=== PATIENT | male | born 1945 | race Caucasian/White ===

== ENCOUNTER 2017-11-08 00:01 | Inpatient (IN) | payer OTHER, MEDICARE ==
[2017-11-08] VITALS (31 sets, daily range): BP systolic 80–197; BP diastolic 52–110; PULSE 56–123; RESP 12–25; TEMP 97.9–100.2; O2SAT 80–100
[~2017-11-08] VITALS: Ht 175.3 cm; Wt 93.5 kg
[2017-11-08] MEDS ORDERED: METH10TA PO (00:18)
[2017-11-08] MEDS ORDERED: OXYC-395 PO (00:18)
[2017-11-08] MEDS ORDERED: METF500T PO (00:18)
[2017-11-08] MEDS ORDERED: ETOMIDATE 40 MG/20 ML VIAL ONE (00:29)
[2017-11-08] MEDS ORDERED: SUCCINYLCHOLINE CHLORIDE 200 MG/10 ML VIAL ONE (00:30)
[2017-11-08] MEDS ORDERED: PROPOFOL 500 MG/50 ML INJ 50 ML ONE ×2 (00:46→02:02)
[2017-11-08] MEDS ORDERED: SODIUM CHLOR 0.9% 1000 ML INJ 1,000 ML IV SCH (00:49)
[2017-11-08] MEDS ORDERED: SODIUM CHLORIDE 0.9% FLUSH 10 ML FLUSH IV FLUSH PRN ×2 (01:00→03:30)
[2017-11-08 01:03] LABS: PROTHROMBIN TIME - PATIENT 10.2 SEC (9.8-11.6)
--- NOTE | 2017-11-08 01:15 | PD ---
HPI Chief Complaint: Abdominal Pain Time Seen by Provider: 00:14 Travel History International Travel<30 days: No Contact w/Intl Traveler<30days: No Traveled to known affect area: No History of Present Illness HPI 72-year-old male arrives to the ER due to what he describes to be a generalized stated feeling lousy. He states he has been feeling this way for a week or so however over the past few hours it has become quite a bit worse. Additional complaints include paresthesias involving the hands and feet. He reports driving down here from [place] over the past couple days. He's had no chest pain or shortness of breath. He denies nausea vomiting fever and chills. He's had no fever however reports diaphoresis. He reports routine usage of 10 mg oxycodone 4 times daily for chronic headaches. He denies change in medication otherwise. He states he would like some been helpful with anxiety. PFSH Past Medical History Cardiovascular Problems: Yes Diabetes: Yes (Metformin) Patient Takes Glucophage: Yes Diminished Hearing: No Tetanus Vaccination: Unknown Influenza Vaccination: No Past Surgical History Abdominal Surgery: Yes (esophageal valve Sx, hemorrhoidal sx and anal fissure sx) Neurologic Surgery: Yes (C5-6 fusion) Tonsillectomy: Yes Other Surgery: Yes (Lshoulder sx times 2 and R shoulder sx times 1, varicose vein repair) Social History Alcohol Use: Yes (social) Tobacco Use: No Substance Use: No Allergies-Medications (Allergen,Severity, Reaction): Coded Allergies: No Known Drug Allergies (Verified Allergy, Unknown, 11/08/17) Reported Meds & Prescriptions Reported Meds & Active Scripts Active Reported Metformin (Metformin HCl) 500 Mg Tab 500 Mg PO BIDPC Methadone (Methadone HCl) 10 Mg Tab 10 Mg PO TID Oxycodone (Oxycodone HCl) 10 Mg Tab 10 Mg PO Q6H PRN Review of Systems Except as stated in HPI: all other systems reviewed are Neg General / Constitutional: No: Fever HENT: Positive: Headaches (chronic daily headaches) Physical Exam Narrative GENERAL: 72-year-old male well-nourished well-developed, BMI 31.1 SKIN: Intact. Trace diaphoresis. HEAD: Atraumatic. Normocephalic. EYES: Pupils equal and round. No scleral icterus. No injection or drainage. ENT: No nasal bleeding or discharge. Mucous membranes pink and moist. NECK: Trachea midline. No JVD. CARDIOVASCULAR: Regular rate. Rhythm regular. RESPIRATORY: Clear. No tachypnea. GASTROINTESTINAL: Abdomen soft, non-tender, nondistended. Hepatic and splenic margins not palpable. MUSCULOSKELETAL: Extremities without clubbing, cyanosis, or edema. No obvious deformities. NEUROLOGICAL: Awake and alert. No obvious cranial nerve deficits. Motor grossly within normal limits. Five out of 5 muscle strength in the arms and legs. Normal speech. PSYCHIATRIC: Appropriate mood and affect; insight and judgment normal. Data Data Last Documented VS Vital Signs Date Time Temp Pulse Resp B/P (MAP) Pulse Ox O2 Delivery O2 Flow Rate FiO2 11/08/17 00:19 56 20 187/81 (116) 98 Room Air 11/08/17 00:02 97.9 Orders Orders Etomidate Inj (Amidate Inj) (11/08/17 00:29) Succinylcholine Inj (Quelicin Inj) (11/08/17 00:30) Ct Pulmonary Angiogram (11/08/17 ) Ct Brain W/O Iv Contrast(Rout) (11/08/17 ) I-Stat Creatinine (11/08/17 00:35) I-Stat Profile (11/08/17 00:35) Act Partial Throm Time (Ptt) (11/08/17 00:35) Prothrombin Time / Inr (Pt) (11/08/17 00:35) Propofol 500 Mg/50 Ml Inj (Diprivan 500 (11/08/17 00:46) Electrocardiogram (11/08/17 00:49) Ammonia (11/08/17 00:49) Complete Blood Count With Diff (11/08/17 00:49) Comprehensive Metabolic Panel (11/08/17 00:49) Creatine Kinase (Cpk) (11/08/17 00:49) Troponin I (11/08/17 00:49) Thyroid Stimulating Hormone (11/08/17 00:49) Urinalysis - C+S If Indicated (11/08/17 00:49) Lactic Acid Sepsis Protocol (11/08/17 00:49) Arterial Blood Gas (Abg) (11/08/17 00:49) Blood Culture (11/08/17 00:49) Chest, Single Ap (11/08/17 00:49) Blood Glucose (11/08/17 00:49) Ecg Monitoring (11/08/17 00:49) Iv Access Insert/Monitor (11/08/17 00:49) Oximetry (11/08/17 00:49) Oxygen Administration (11/08/17 00:49) Urinary Catheter Insert/Apply (11/08/17 00:49) Sodium Chloride 0.9% Flush (Ns Flush) (11/08/17 01:00) Sodium Chlor 0.9% 1000 Ml Inj (Ns 1000 M (11/08/17 00:49) Ct Abd/Pel W Iv Contrast(Rout) (11/08/17 00:49) Admit Order (Ed Use Only) (11/08/17 ) Cost Estimating Engineer / Telemetry JUAN.Q8H (11/08/17 01:06) Vital Signs (Adult) Q4H (11/08/17 01:06) Diet Npo (11/08/17 Breakfast) Activity Bed Rest (11/08/17 01:06) Notify Dr: Other (11/08/17 01:06) Labs Laboratory Tests Test 11/08/17 00:30 11/08/17 01:10 Bedside Hemoglobin 16.3 G/DL Bedside Hematocrit 48.0 % Prothrombin Time 10.2 SEC Prothromb Time International Ratio 1.0 RATIO Activated Partial Thromboplast Time 23.9 SEC Bedside Sodium 138 MMOL/L Bedside Potassium 8.5 MMOL/L Bedside Chloride 109 MMOL/L Bedside Blood Urea Nitrogen 30 MG/DL Bedside Creatinine 1.0 MG/DL Bedside Glucose 174 MG/DL White Blood Count 28.5 TH/MM3 Red Blood Count 5.14 MIL/MM3 Hemoglobin 13.7 GM/DL Hematocrit 43.7 % Mean Corpuscular Volume 85.0 FL Mean Corpuscular Hemoglobin 26.7 PG Mean Corpuscular Hemoglobin Concent 31.4 % Red Cell Distribution Width 14.3 % Platelet Count 404 TH/MM3 Mean Platelet Volume 9.1 FL Neutrophils (%) (Auto) 63.8 % Lymphocytes (%) (Auto) 28.7 % Monocytes (%) (Auto) 5.4 % Eosinophils (%) (Auto) 1.6 % Basophils (%) (Auto) 0.5 % Neutrophils # (Auto) 18.2 TH/MM3 Lymphocytes # (Auto) 8.2 TH/MM3 Monocytes # (Auto) 1.5 TH/MM3 Eosinophils # (Auto) 0.5 TH/MM3 Basophils # (Auto) 0.2 TH/MM3 CBC Comment AUTO DIFF Ammonia 31 MCMOL/L MDM Medical Decision Making Medical Screen Exam Complete: Yes Emergency Medical Condition: Yes Medical Record Reviewed: Yes Differential Diagnosis PE, stroke, myocardial partial, electrolyte imbalance, metabolic disarray Narrative Course CBC & BMP Diagram 11/08/17 01:10 Total Protein 8.3 H, Albumin 3.8, Calcium Level 12.3 *H, Alkaline Phosphatase 131 H, Aspartate Amino Transf (AST/SGOT) 63 H, Alanine Aminotransferase (ALT/ SGPT) 52, Total Bilirubin 0.4 Lactic Acid 6.2 Tn < 0.02 TSH 5.140 The patient was hemodynamically normal and had normal mental status time of completion of the history of present illness and physical exam. Just a few minutes after leaving the room I was called to the bedside because the patient was unresponsive. The pupils dilated bilaterally. Rhythm on the monitor was wide complex very bizarre morphology tachycardic as pulses were lost. Nonrebreather applied. Chest compressions started immediately. Patient was intubated with a 8-0 tube without difficulty. The patient received epinephrine twice. He received calcium 1 g twice. Bicarbonate was given once. Amiodarone 150 mg given. After the intubation which was performed with etomidate and succinylcholine a wide-complex ventricular tachycardia presumably ventricular tachycardia was observed. Patient was defibrillated once. Chest compressions were maintained throughout. Upon return of circulation the patient maintained a pulse of about 90 and a blood pressure about 170/90. He began purposeful movements and required sedation with propofol and rocuronium. EKG reveals a ventricular tachycardia with a rate about 100 minute the QRS complex with a QRS of 1:15 is noted. No T-wave inversions or ST elevation CT abdomen and pelvis shows lung consolidation bilaterally CT chest shows some consolidation at the bases Head CT is negative Patient will be admitted for ongoing monitoring Etiology of loss of consciousness and cardiac arrest is unclear and potentially could be due to hyperkalemia As the point of care potassium was 8.5 and the comprehensive metabolic panel potassium was 6.5 after the patient had received bicarbonate insulin dextrose calcium. Critical Care Narrative Aggregate critical care time was 45 minutes. Time to perform other separately billable procedures was not included in the critical care time. My time did not include minutes spent treating any other patients simultaneously or on activities that did not directly contribute to the patient's treatment. The services I provided to this patient were to treat and/or prevent clinically significant deterioration that could result in: cardiopulmonary arrest, , disability I provided critical care services requiring my management, as noted below: Chart data review, documentation time, medication orders and management, vital sign assessments/reviewing monitor data, ordering and reviewing lab tests, ordering and interpreting/reviewing x-rays and diagnostic studies, care of the patient and discussion of the patient with the admitting physicians. Procedures Procedure Narrative After the risks and benefits were discussed the following procedure was performed: INTUBATION: The patient was put in optimal position for the procedure. Rapid sequence intubation was initiated by me using 20 milligrams of etomidate IV and 100 milligrams of succhinylcholine IV. The patient was intubated with a 8-0 cuffed endotracheal tube. Tube placement was confirmed by visualization of the tube and balloon passing through the cords, capnometry and subsequent chest x- ray. Breath sounds were equal and well aerated bilaterally postintubation. No breath sounds over stomach. Patient tolerated procedure well. Diagnosis Primary Impression: Cardiopulmonary arrest Additional Impressions: Hyperkalemia Lung consolidation Admitting Information Admitting Physician Requests: Catracho Che MD Nov 08, 2017 01:15
[2017-11-08] MEDS ORDERED: IOHEXOL 350 MG/ML 10 ML VIAL (for RAD DIAG) IVCONTRAST ONE (01:27)
--- NOTE | 2017-11-08 01:38 | RADRPT ---
EXAM DATE/TIME: 11/08/2017 01:16 [facility] COMPARISON: No previous studies available for comparison. INDICATIONS : Altered mental status. RADIATION DOSE: 69.15 CTDIvol (mGy) MEDICAL HISTORY : Cardiovascular disease. Diabetes mellitus type 2. SURGICAL HISTORY : Fusion, cervical. ENCOUNTER: Initial ACUITY: 1 day PAIN SCALE: Non-responsive LOCATION: cranial TECHNIQUE: Multiple contiguous axial images were obtained of the head. Using automated exposure control and adj ustment of the mA and/or kV according to patient size, radiation dose was kept as low as reasonably a chievable to obtain optimal diagnostic quality images. DICOM format image data is available electro nically for review and comparison. FINDINGS: CEREBRUM: The ventricles are normal for age. No evidence of midline shift, mass lesion, hemorrhage or acute in farction. No extra-axial fluid collections are seen. POSTERIOR FOSSA: The cerebellum and brainstem are intact. The 4th ventricle is midline. The cerebellopontine angle i s unremarkable. EXTRACRANIAL: The visualized portion of the orbits is intact. SKULL: The calvaria is intact. No evidence of skull fracture. CONCLUSION: No acute disease. Dewayne Yañez MD on November 08, 2017 at 1:35 Board Certified Radiologist. This report was verified electronically.
[2017-11-08 01:40] LABS: AUTOMATED NEUTROPHIL # 18.2 TH/MM3 (1.8-7.7); BASOPHIL # 0.2 TH/MM3 (0-0.2); BASOPHIL % 0.5 % (0.0-2.0); EOSINOPHIL # 0.5 TH/MM3 (0-0.4); EOSINOPHIL % 1.6 % (0.0-4.0); HEMATOCRIT 43.7 % (39.0-51.0); HEMOGLOBIN 13.7 GM/DL (13.0-17.0); LYMPH % 28.7 % (9.0-44.0); LYMPHOCYTE # 8.2 TH/MM3 (1.0-4.8); MEAN CORPUSCULAR HEMOGLOBIN 26.7 PG (27.0-34.0); MEAN CORPUSCULAR HGB CONC 31.4 % (32.0-36.0); MEAN PLATELET VOLUME 9.1 FL (7.0-11.0); MONO % 5.4 % (0.0-8.0); MONOCYTE # 1.5 TH/MM3 (0-0.9); NEUT % 63.8 % (16.0-70.0); PLATELET COUNT 404 TH/MM3 (150-450); RED BLOOD COUNT 5.14 MIL/MM3 (4.50-5.90); RED CELL DISTRIBUTION WIDTH 14.3 % (11.6-17.2); WHITE BLOOD COUNT 28.5 TH/MM3 (4.0-11.0)
--- NOTE | 2017-11-08 01:41 | RADRPT ---
EXAM DATE/TIME: 11/08/2017 01:21 [facility] COMPARISON: No previous studies available for comparison. INDICATIONS : Post cardiac arrest. Possible emboli. IV CONTRAST: 75 cc Omnipaque 350 (iohexol) IV ; Cumulative dose for multiple exams. RADIATION DOSE: 10.87 CTDIvol (mGy) MEDICAL HISTORY : Cardiovascular disease. Diabetes mellitus type 2. SURGICAL HISTORY : Fusion, lumbar. ENCOUNTER: Initial ACUITY: 1 day PAIN SCALE: Non-responsive LOCATION: chest TECHNIQUE: Volumetric scanning of the chest was performed using a pulmonary embolism protocol MIP images were re constructed. Using automated exposure control and adjustment of the mA and/or kV according to patien t size, radiation dose was kept as low as reasonably achievable to obtain optimal diagnostic quality images. DICOM format image data is available electronically for review and comparison. Follow-up recommendations for detected pulmonary nodules are based at a minimum on nodule size and pa tient risk factors according to Fleischner Society Guidelines. FINDINGS: PULMONARY ARTERIES: No filling defects are seen in the pulmonary arteries through the segmental level. LUNGS: There is increased density at the posterior lower lungs bilaterally being worse on the right. There i s also some increased density at the posterior upper lungs bilaterally being worse on the right. PLEURAE: There is no pleural thickening or pleural effusion. MEDIASTINUM: There is good visualization of the great vessels of the middle mediastinum. No evidence of mediastin al or hilar adenopathy/mass. MUSCULOSKELETAL: Within normal limits for patient age. MISCELLANEOUS: The visualized upper abdominal organs demonstrate no acute abnormality. CONCLUSION: 1. No pulmonary embolus. 2. Bilateral areas of consolidation in the posterior upper and lower lungs being worse on the right. Dewayne Yañez MD on November 08, 2017 at 1:36 Board Certified Radiologist. This report was verified electronically.
[2017-11-08] MEDS ORDERED: MIDAZOLAM HCL 5 MG/5 ML VIAL IV PUSH ONE (01:45)
--- NOTE | 2017-11-08 01:45 | RADRPT ---
EXAM DATE/TIME: 11/08/2017 01:25 [facility] COMPARISON: CT PULMONARY ANGIOGRAM, November 08, 2017, 1:21. INDICATIONS : Post cardiac arrest. Possible anuersym. IV CONTRAST: 75 cc Omnipaque 350 (iohexol) IV ; Cumulative dose for multiple exams. ORAL CONTRAST: No oral contrast ingested. RADIATION DOSE: 12.67 CTDIvol (mGy) MEDICAL HISTORY : Cardiovascular disease. Diabetes mellitus type 2. SURGICAL HISTORY : Fusion, cervical. ENCOUNTER: Initial ACUITY: 1 day PAIN SCALE: Non-responsive LOCATION: abdomen TECHNIQUE: Volumetric scanning of the abdomen and pelvis was performed. Using automated exposure control and ad justment of the mA and/or kV according to patient size, radiation dose was kept as low as reasonably achievable to obtain optimal diagnostic quality images. DICOM format image data is available electro nically for review and comparison. FINDINGS: LOWER LUNGS: There are bibasilar areas of consolidation or atelectasis. LIVER: There is decreased density throughout the liver. No focal hepatic lesion is seen. SPLEEN: Normal size without lesion. PANCREAS: Within normal limits. KIDNEYS: Normal in size and shape. There is no solid mass, stone or hydronephrosis. There are 2 right renal c ysts measuring up to 1.8 cm. ADRENAL GLANDS: Within normal limits. VASCULAR: There is no aortic aneurysm. Atherosclerotic calcifications are seen. BOWEL/MESENTERY: The stomach, small bowel, and colon demonstrate no acute abnormality. There is no free intraperitone al air or fluid. There is an NG tube in place. There are scattered colonic diverticula. ABDOMINAL WALL: Within normal limits. RETROPERITONEUM: There is no lymphadenopathy. BLADDER: There is a Kamara catheter in place. The bladder biswas are thickened. This may be secondary to the lac k of distention. REPRODUCTIVE: Within normal limits. INGUINAL: There is no lymphadenopathy or hernia. MUSCULOSKELETAL: Within normal limits for patient age. CONCLUSION: 1. No abdominal aortic aneurysm. 2. Areas of consolidation or atelectasis at the lung bases. 3. Hepatic steatosis. Dewayne Yañez MD on November 08, 2017 at 1:38 Board Certified Radiologist. This report was verified electronically.
--- NOTE | 2017-11-08 01:53 | RADRPT ---
EXAM DATE/TIME: 11/08/2017 01:37 [facility] COMPARISON: No previous studies available for comparison. INDICATIONS : E-T tube placement, post cardiac arrest. MEDICAL HISTORY : Cardiovascular disease. Diabetes mellitus type II. SURGICAL HISTORY : Fusion, cervical. ENCOUNTER: Initial ACUITY: 1 day PAIN SCORE: Non-responsive. LOCATION: Bilateral chest FINDINGS: The ET tube is 4.2 cm from the gilberto. The NG tube is in the stomach. There is anterior cervical fusi on plate present. The heart size is normal. There is hazy density seen over the lung bilaterally bein g worse on the left. CONCLUSION: 1. ET tube in good position. 2. Hazy density at the lungs bilaterally likely related to areas of consolidation or atelectasis. Dewayne Yañez MD on November 08, 2017 at 1:50 Board Certified Radiologist. This report was verified electronically.
[2017-11-08 02:11] LABS: LACTIC ACID SEPSIS PROTOCOL 6.2 mmol/L (0.4-2.0)
[2017-11-08 02:17] LABS: ALKALINE PHOSPHATASE 131 U/L (45-117); BANDS 9 % (0-6); LYMPHOCYTES 22 % (9-44); MONOCYTES 8 % (0-8); NEUTROPHIL # MANUAL DIFF 19.4 TH/MM3 (1.8-7.7); POLYS (SEG NEUTROPHILS) 59 % (16-70); TOTAL BILIRUBIN ADULT 0.4 MG/DL (0.2-1.0); TOTAL PROTEIN 8.3 GM/DL (6.4-8.2); TROPONIN I LESS THAN 0.02 NG/ML (0.02-0.05)
[2017-11-08 02:19] LABS: BLOOD UREA NITROGEN 25 MG/DL (7-18); CREATININE 1.29 MG/DL (0.60-1.30); GLOMERULAR FILTRATION RATE 55 ML/MIN (>89)
[2017-11-08 02:20] LABS: ALBUMIN 3.8 GM/DL (3.4-5.0); ALT (GPT) 52 U/L (12-78); AST (GOT) 63 U/L (15-37); BICARBONATE 21.5 MEQ/L (21.0-32.0); CALCIUM 12.3 MG/DL (8.5-10.1); CALCIUM-PROTEIN CORRECTED 11.5 MG/DL (8.5-10.1); CHLORIDE 110 MEQ/L (98-107); GLUCOSE,RANDOM 372 MG/DL (74-106); SODIUM (NA) 140 MEQ/L (136-145)
[2017-11-08] MEDS ORDERED: SODIUM POLYSTYRENE SULFONATE SUSP 15 GM/60 ML CUP OG-TUBE ONE (02:45)
[2017-11-08] MEDS ORDERED: fentaNYL DRIP 250 ML IV PRN (02:45)
--- NOTE | 2017-11-08 02:59 | HHI.HP ---
HPI Service Critical Care Medicine Primary Care Physician Unknown Admission Diagnosis Cardiac Arrest Diagnosis: Travel History International Travel<30 Days: No Contact w/Intl Traveler <30 Da: No Traveled to Known Affected Are: No History of Present Illness 72 yo WM with PMH of Type II DM on insulin therapy, chronic headaches on chronic methadone/oxycodone, obesity, OA presented to [facility] after her reportedly "has been feeling fatigued and weak" for 1 week. He was diaphoretic on arrival and complaining of tingling in hands and feet. He developed pulseless Vtach and CPR was initiated. He was intubated during code after administration of succinylcholine 100 mg and etomidate 20 mg IV. He was defibrillated, administered calcium chloride 2 g IV, bicarbonate 50 mEq IV, amiodarone 150 mg IV and had ROSC after 13 minutes. Point of care potassium immediately after code was 8.5. Creatinine was 1. Confirmatory labs were drawn just before he was administered insulin 10 units IV, 1 amp of D50 and additional bicarb 50 MEQ. They demonstrate potassium of 6.5 with slight hemolysis. Lactic acid is 6.2. Calcium is 11.5. Troponin is 0.02. Subsequent EKG demonstrates probable junctional rhythm. Qtc is normal. No ST elevation. No peaked T waves. His family indicates that his only specific complaint has been fatigue and generalized weakness over the last week. They state he has been under " a lot of stress" over the last week due to recent incarceration of his grandson, of two friends including one from suicide. Family specifically denies cough, chest pain, shortness of breath, orthopnea, hemoptysis, fever. He has chronic headaches but is not complained of anything beyond baseline. They deny any prior known cardiac history. Never had a stress test or cardiac catheterization. No family history of sudden cardiac , coronary artery disease or cardiomyopathy. No known history of kidney disease. Aside from the succinocholine that was given during CPR, the family denies any medications that may contribute to hyperkalemia, specifically no Cortez-I/ARB/potassium sparing diuretics/abx. No TCAs. reports he drank 2 large glasses of V8 juice today. Review of Systems ROS Limitations: Clinical Condition, Intubated Past Family Social History Allergies: Coded Allergies: No Known Drug Allergies (Verified Allergy, Unknown, 11/08/17) Past Medical History Type 2 Diabetes mellitus - now on insulin therapy Chronic headaches Chronic pain Obesity GERD now status post Mar Tobacco abuse Past Surgical History Mar Steroid injection left hip 2 weeks ago Reported Medications Methadone. was uncertain what his current methadone doses. Prior records indicate he was on 10 mg by mouth 3 times a day but is unclear if this is current. Oxycodone Insulin sliding scale Family History Father of cancer in his late 60s Mother in her 80s but had no known medical history. There is no known family history of coronary artery disease, sudden cardiac , cardiomyopathy Social History He lives in [place] and has been visiting friends in [place] for the last 7 days. They drove down from [place]. He is typically followed by Dr. Chava Smith at OR in [place] He is . He is retired from [employer]. He is a [place] and has a [employer] He has a prior history of tobacco abuse but quit 15 years ago. He drinks 2-3 beers per day 3-4 days per week. He has been drinking more recently while he has been on vacation. Physical Exam Vital Signs Vital Signs Date Time Temp Pulse Resp B/P (MAP) Pulse Ox O2 Delivery O2 Flow Rate FiO2 11/08/17 02:19 97 100 11/08/17 02:15 123 12 197/105 (135) 97 Ventilator 100 11/08/17 01:35 97 11/08/17 00:50 98 12 170/110 (130) 96 Auto-Vent 11/08/17 00:40 96 12 171/79 (109) 99 Auto-Vent 11/08/17 00:33 100 11/08/17 00:19 56 20 187/81 (116) 98 Room Air 11/08/17 00:02 97.9 84 20 151/73 (99) 97 Room Air Physical Exam GENERAL: Elderly male who is intubated. SKIN: Warm and dry. HEAD: Atraumatic. Normocephalic. EYES: Pupils equal and round, 2mm and reactive bilaterally. No scleral icterus. No injection or drainage. ENT: No nasal bleeding or discharge. Mucous membranes pink and moist. NECK: Trachea midline. No JVD. CARDIOVASCULAR: Regular rate and rhythm, no sinus rhythm on the monitor. No murmurs rubs or gallops. RESPIRATORY: Overbreathing the vent but overall synchronous. Bilateral rhonchi. No wheeze GASTROINTESTINAL: Abdomen soft, non-tender, nondistended. Bowel sounds present. : Kamara in place with ample light yellow urine in bag >1100. MUSCULOSKELETAL: Extremities without clubbing, cyanosis, or edema. No obvious deformities. NEUROLOGICAL: Awake and alert, nodding appropriately. Moves all extremities to command. Laboratory Laboratory Tests Test 11/08/17 00:30 11/08/17 01:10 Bedside Hemoglobin 16.3 Bedside Hematocrit 48.0 Prothrombin Time 10.2 Prothromb Time International Ratio 1.0 Activated Partial Thromboplast Time 23.9 Bedside Sodium 138 Bedside Potassium 8.5 Bedside Chloride 109 Bedside Blood Urea Nitrogen 30 Bedside Creatinine 1.0 Bedside Glucose 174 White Blood Count 28.5 Red Blood Count 5.14 Hemoglobin 13.7 Hematocrit 43.7 Mean Corpuscular Volume 85.0 Mean Corpuscular Hemoglobin 26.7 Mean Corpuscular Hemoglobin Concent 31.4 Red Cell Distribution Width 14.3 Platelet Count 404 Mean Platelet Volume 9.1 Neutrophils (%) (Auto) 63.8 Lymphocytes (%) (Auto) 28.7 Monocytes (%) (Auto) 5.4 Eosinophils (%) (Auto) 1.6 Basophils (%) (Auto) 0.5 Neutrophils # (Auto) 18.2 Lymphocytes # (Auto) 8.2 Monocytes # (Auto) 1.5 Eosinophils # (Auto) 0.5 Basophils # (Auto) 0.2 CBC Comment AUTO DIFF Differential Total Cells Counted 100 Neutrophils % (Manual) 59 Band Neutrophils % 9 Lymphocytes % 22 Monocytes % 8 Eosinophils % 2 Neutrophils # (Manual) 19.4 Differential Comment FINAL DIFF MANUAL Platelet Estimate HIGH Platelet Morphology Comment NORMAL Red Cell Morphology Comment NORMAL Blood Urea Nitrogen 25 Creatinine 1.29 Random Glucose 372 Total Protein 8.3 Albumin 3.8 Calcium Level 12.3 Alkaline Phosphatase 131 Aspartate Amino Transf (AST/SGOT) 63 Alanine Aminotransferase (ALT/SGPT) 52 Total Bilirubin 0.4 Sodium Level 140 Potassium Level 6.5 Chloride Level 110 Carbon Dioxide Level 21.5 Anion Gap 9 Estimat Glomerular Filtration Rate 55 Lactic Acid Level 6.2 Protein Corrected Calcium 11.5 Ammonia 31 Total Creatine Kinase 122 Troponin I LESS THAN 0.02 Thyroid Stimulating Hormone 3rd Gen 5.140 Date/Time Source Procedure Growth Status 11/08/17 01:10 Blood Peripheral Aerobic Blood Culture Pending Received 11/08/17 01:10 Blood Peripheral Anaerobic Blood Culture Pending Received Result Diagram: 11/08/1710911/08/17109 Septic Shock Reassessment Septic shock perfusion: reassessment completed Caprini VTE Risk Assessment Caprini VTE Risk Assessment: Mod/High Risk (score >= 2) VTE Pharm Contraindication: Documented Caprini Risk Assessment Model Point Value = 1 Point Value = 2 Point Value = 3 Point Value = 5 Age 41-60 Minor surgery BMI > 25 kg/m2 Swollen legs Varicose veins or History of unexplained or recurrent spontaneous Oral contraceptives or hormone replacement Sepsis (< 1 month) Serious lung disease, including pneumonia (< 1 month) Abnormal pulmonary function Acute myocardial infarction Congestive heart failure (< 1 month) History of inflammatory bowel disease Medical patient at bed rest Age 61-74 Arthroscopic surgery Major open surgery (> 45 min) Laparoscopic surgery (> 45 min) Malignancy Confined to bed (> 72 hours) Immobilizing plaster cast Central venous access Age >= 75 History of VTE Family history of VTE Factor V Leiden Prothrombin [id number] Lupus anticoagulant Anticardiolipin antibodies Elevated serum homocysteine Heparin-induced thrombocytopenia Other congenital or acquired thrombophilia Stroke (< 1 month) Elective arthroplasty Hip, pelvis, or leg fracture Acute spinal cord injury (< 1 month) Prophylaxis Regimen Total Risk Factor Score Risk Level Prophylaxis Regimen 0-1 Low Early ambulation 2 Moderate Order ONE of the following: *Sequential Compression Device (SCD) *Heparin 5000 units SQ BID 3-4 Higher Order ONE of the following medications: *Heparin 5000 units SQ TID *Enoxaparin/Lovenox 40 mg SQ daily (WT < 150 kg, CrCl > 30 mL/min) *Enoxaparin/Lovenox 30 mg SQ daily (WT < 150 kg, CrCl > 10-29 mL/min) *Enoxaparin/Lovenox 30 mg SQ BID (WT < 150 kg, CrCl > 30 mL/min) AND/OR *Sequential Compression Device (SCD) 5 or more Highest Order ONE of the following medications: *Heparin 5000 units SQ TID (Preferred with Epidurals) *Enoxaparin/Lovenox 40 mg SQ daily (WT < 150 kg, CrCl > 30 mL/min) *Enoxaparin/Lovenox 30 mg SQ daily (WT < 150 kg, CrCl > 10-29 mL/min) *Enoxaparin/Lovenox 30 mg SQ BID (WT < 150 kg, CrCl > 30 mL/min) AND *Sequential Compression Device (SCD) Assessment and Plan Assessment and Plan NEURO: Chronic headaches Chronic pain s/p Lumbar fusion Propofol for sedation. Fentanyl prn and drip for analgosedation given chronic narcotic use. Hold methadone for now until able to confirm dose. Oxycodone as needed for pain CT brain - negative for acute abnormality 11/08 Ammonia in it normal states he previously had shrapnel in his body but that this has been removed in the past and that he has previously undergone MRI. RESP: Acute hypoxemic and hypercapnic respiratory failure COPD h/o tobacco abuse Albuterol neb now for hyperkalemia. Albuterol every 2 hours as needed for wheezing CT pulmonary angiogram 11/08negative for pulmonary embolus. bilateral lower lobe consolidation as per below. Ventilator bundle, adjust vent to PRVC TV 525 R 16 PEEP 8 FiO2 100 to address respiratory acidosis. CV: V. tach cardiac arrest ?secondary to hyperkalemia. Potassium elevated in setting of resp/metabolic acidemia and after receiving succinocholine with no labs available pre-arrest. Also slight hemolysis. Renal function normal. Reviewed medications with and there are no meds that would explain (unless her recollection of meds is inaccurate). Because this hyperkalemia is difficult to explain, will obtain aldosterone/ renin levels. Cardiology consulted for recommendations as at this point not clear if hyperkalemia is secondary to acidemia/arrest vs the primary issue. Qtc normal. Received amiodarone 150 mg in the ED. Will continue amiodarone drip. Obtain 2D echo, serial EKG and troponin trend. GI: Place OG-tube to low intermittent wall suction. Avoid tube feeds until K improved. FEN/RENAL: Acute Hyperkalemia Hypercalcemia - suspect iatrogenic, loaded with calcium 2 gram IV. Normal renal function with brisk UOP. ?type r RTA. Check Aldosterone, renin, cortisol levels, urine lytes. Kayexalate 30 gram po, bicarb 100 MEq in ED, Albuterol neb, Insulin 10 units IV. Follow potassium levels. ID: Bilateral pneumonia, probable aspiration Leukocytosis with bandemia CT demonstrates bilateral lower lobe infiltrates. This may represent aspiration pneumonia. We'll send sputum culture, influenza screen, Legionella, pneumococcal antigen. Follow-up blood cultures that were sent in the emergency department. Empiric coverage with Zosyn and azithromycin. HEME: No acute hematologic issues. Monitor CBC ENDO: Diabetes mellitus Elevated TSH T3 and T4 normal which may represent subclinical hypothyroidism but would avoid synthroid at this point in view of V tach. Received insulin 10 units IV in the emergency department and one amp of D50. We'll continue to check bedside glucose every 4 hours with me and insulin sliding scale. Family states patient was on insulin at home, unknown dose. They state he was no longer taking metformin F/u ACTH/cortisol level PROPH: SCDs for DVT prophylaxis. Heparin 5000 units subcutaneous every 12 hours for DVT prophylaxis after hyperkalemia controlled. Famotidine for stress ulcer prophylaxis. ACCESS: R IJ CVL placed 11/08 #1 updated at bedside. She initially stated she thought patient had a DNR and that she did not think he would want CPR for recurrent arrest. However, patient woke up and was nodding and communicating while on vent. He indicates he did not have a preexisting DNR and that he wishes to be FULL CODE. I called to let her know and she states she knows he would not want long-term life support but, at this point, given his improved mental status she would agree to honor FULL CODE. Discussed with Dr Nath CCT 60 minutes exclusive of separately billable procedures. Orly Nicole MD Nov 08, 2017 02:59
[2017-11-08] MEDS ORDERED: GLUCAGON 1 MG/ML VIAL OTHER PRN (03:00)
[2017-11-08] MEDS ORDERED: MIDAZOLAM HCL 2 MG/2 ML VIAL IV PUSH PRN (03:00)
[2017-11-08] MEDS ORDERED: DEXTROSE 50% IN WATER 50 ML VIAL(D50) IV PUSH PRN (03:00)
[2017-11-08] MEDS ORDERED: ASPIRIN 81 MG CHEW TAB CHEW ONE (03:00)
[2017-11-08] MEDS: SODIUM CHLOR 0.9% 1000 ML INJ 1,000 ML IV SCH ×2 (03:26→17:12)
[2017-11-08] MEDS ORDERED: LACTULOSE SYRUP 20 GM/30 ML CUP PO PRN (03:30)
[2017-11-08] MEDS ORDERED: MAGNESIUM HYDROXIDE SUSP 30 ML CUP PO PRN (03:30)
[2017-11-08] MEDS ORDERED: SENNOSIDES 8.6 MG TAB PO PRN (03:30)
[2017-11-08] MEDS ORDERED: BISACODYL 10 MG SUPP RECTAL PRN (03:30)
[2017-11-08] MEDS ORDERED: CHLORHEXIDINE GLUCONATE 2 % 1 PACK (2 CLOTHS) TOP PRN (03:30)
[2017-11-08] MEDS ORDERED: MISCELLANEOUS NURSING INFORMATION XX SCH (03:30)
[2017-11-08] MEDS ORDERED: ONDANSETRON HCL 4 MG/2 ML VIAL IV PUSH PRN (03:30)
[2017-11-08] MEDS ORDERED: RESP: ALBUTEROL 2.5 MG/3 ML NEB (PRN) INH (03:30)
[2017-11-08] MEDS ORDERED: AMIODARONE INJ 450 MG in DEXTROSE 5% IN WATE(EXCEL) INJ 241 ML IV PRN ×2 (03:36)
[2017-11-08] MEDS ORDERED: PROPOFOL 1000 MG/100 ML INJ 100 ML IV PRN (03:45)
[2017-11-08] MEDS: CHLORHEXIDINE GLUCONATE 2 % 1 PACK (2 CLOTHS) TOP SCH (04:00)
[2017-11-08] MEDS ORDERED: RESP: ALBUTEROL 1.25 MG/3 ML NEB (SCH) NEB ONE (04:00)
[2017-11-08] MEDS: AZITHROMYCIN INJ 500 MG in SODIUM CHLOR 0.9% 250 ML INJ 250 ML IV SCH (04:00)
[2017-11-08] MEDS: PIPERACIL-TAZO 3.375 GM PREMIX 50 ML IV SCH ×4 (04:18→20:25)
[2017-11-08 04:44] LABS: FREE T3 3.32 PG/ML (2.18-3.98); FREE T4 1.12 NG/DL (0.76-1.46)
[2017-11-08] MEDS ORDERED: DOPamine INJ PREMIX 500 ML IV ONE (05:00)
[2017-11-08] MEDS ORDERED: NOREPINEPHRINE 4 MG/4 ML AMP IV ONE (05:00)
[2017-11-08] MEDS ORDERED: DEXTROSE 50% IN WATER 50 ML SYRINGE IV ONE (05:00)
[2017-11-08] MEDS ORDERED: EPINEPHrine HCL (1:10,000) 1 MG/10 ML SYRINGE IV ONE (05:00)
[2017-11-08] MEDS ORDERED: CALCIUM CHLORIDE 10% SOLN 1 GRAM/10 ML SYR IV ONE (05:00)
[2017-11-08] MEDS ORDERED: MAGNESIUM SULFATE 40 MEQ/10 ML VIAL IV ONE (05:00)
[2017-11-08] MEDS ORDERED: SODIUM BICARBONATE 8.4% INJ 50 MEQ/50 ML SYR IV ONE (05:00)
[2017-11-08] MEDS ORDERED: AMIODARONE HCL 150 MG/3 ML VIAL IV ONE (05:00)
--- NOTE | 2017-11-08 05:54 | PD.PROCEDR ---
Procedure Note Procedure DATE: 11/08/17 CENTRAL LINE PLACEMENT: Right internal jugular vein. INDICATION: Central venous access CONSENT Informed consent for procedure was obtained from patient's after discussion of risks, benefits, alternatives. DESCRIPTION OF THE PROCEDURE The patient was placed in supine position, mild Trendelenburg. The skin was cleansed with Chloraprep 4. Additional barrier precautions included large sterile drape, sterile gloves, sterile gown, face mask, and hat. 1 % lidocaine was used for local anesthesia. Under direct ultrasound guidance and on single attempt, the vein was accessed with an introducer needle. The guide wire was advanced and the tract was dilated. Using Seldinger technique a 7 Singaporean 20 cm antimicrobial coated triple-lumen catheter was advanced to a depth of 17 centimeters. The guide wire was removed. All ports had good return of dark venous blood and flushed easily with saline. The skin was prepped and central line was secured with Stat-lock. A sterile dressing with antibiotic disc was applied. ESTIMATED BLOOD LOSS: Minimal COMPLICATIONS: No apparent complications. STAT chest x-ray demonstrates satisfactory central line position without apparent complication Orly Nicole MD Nov 08, 2017 05:54
--- NOTE | 2017-11-08 05:55 | RADRPT ---
EXAM DATE/TIME: 11/08/2017 05:09 [facility] COMPARISON: CHEST SINGLE AP, November 08, 2017, 1:37. INDICATIONS : Right internal jugular central line placement. MEDICAL HISTORY : Cardiovascular disease. Diabetes mellitus type II. SURGICAL HISTORY : Fusion, cervical. ENCOUNTER: Subsequent ACUITY: 1 day PAIN SCORE: Non-responsive. LOCATION: Bilateral chest FINDINGS: ET tube, NG tube and right internal jugular central line are well placed. The heart size is normal. T here is increased density at the left base. The right lung is clear. CONCLUSION: Left base mild atelectasis or consolidation. Dewayne Yañez MD on November 08, 2017 at 5:51 Board Certified Radiologist. This report was verified electronically.
[2017-11-08] MEDS ORDERED: SODIUM CHLORID 0.9% 500 ML INJ 500 ML IV ONE (06:45)
[2017-11-08] MEDS: INSULIN ASPART SUPPLEMENTAL SCALE SQ SCH ×3 (06:51→20:00)
[2017-11-08] MEDS ORDERED: PHENYLEPHRINE INJ 160 MG in DEXTROSE 5% IN WATE 500 ML INJ 484 ML IV PRN ×2 (07:00)
[2017-11-08] MEDS ORDERED: TERBUTALINE INJ 1 MG/ML AMP SQ PRN (07:00)
[2017-11-08] MEDS ORDERED: AMIODARONE INJ 450 MG in SODIUM CHLOR 0.9% (EXCEL) INJ 241 ML IV PRN (07:00)
[2017-11-08 07:23] LABS: ALBUMIN 4.1 GM/DL (3.4-5.0); BICARBONATE 25.6 MEQ/L (21.0-32.0); CALCIUM 11.8 MG/DL (8.5-10.1); CALCIUM-PROTEIN CORRECTED 10.9 MG/DL (8.5-10.1); CREATININE 1.28 MG/DL (0.60-1.30); TOTAL BILIRUBIN ADULT 0.9 MG/DL (0.2-1.0); TOTAL PROTEIN 8.6 GM/DL (6.4-8.2)
[2017-11-08] MEDS: FAMOTIDINE 20 MG TAB PO SCH ×2 (09:00→20:26)
[2017-11-08] MEDS ORDERED: HEPARIN SODIUM - SQ 10,000 UNITS/ML VIAL SQ SCH (09:00)
[2017-11-08] MEDS ORDERED: SODIUM BICARBONATE 8.4% INJ 50 MEQ/50 ML SYR IV PUSH ONE (09:00)
[2017-11-08] MEDS ORDERED: SODIUM POLYSTYRENE SULFONATE SUSP 15 GM/60 ML CUP PO ONE (09:00)
[2017-11-08 09:21] LABS: BACTERIA, URINE OCC /hpf; BILIRUBIN, URINE NEG (NEG); BLOOD, URINE LARGE (NEG); GLUCOSE,URINE 150 mg/dL (NEG); KETONE, URINE NEG (NEG); MUCUS URINE FEW /lpf (OCC); NITRITE,URINE NEG (NEG); PH, URINE 5.5 (5.0-8.5); SQUAMOUS EPITHELIAL CELL URINE <1 /hpf (0-5); TRANSITIONAL EPI CELLS, URINE <1 /hpf; URINE COLOR YELLOW (YELLW/STRAW); URINE LEUKOCYTE ESTERASE NEG (NEG)
[2017-11-08] MEDS: FAMOTIDINE 20 MG/2 ML VIAL IV PUSH SCH ×2 (09:35→20:26)
[2017-11-08] MEDS: SODIUM CHLORIDE 0.9% FLUSH 10 ML FLUSH IV FLUSH SCH ×2 (09:35→20:25)
[2017-11-08] MEDS: DOCUSATE SODIUM 50 MG/SENNA 8.6 MG TAB PO SCH ×2 (09:35→20:26)
[2017-11-08 09:36] LABS: CREATININE, RANDOM URINE 97.5 MG/DL
[2017-11-08] MEDS: CHLORHEXIDINE 0.12% (ORAL KIT) 15 ML CUP MT SCH ×2 (09:36→20:00)
--- NOTE | 2017-11-08 09:37 | PD.CONS ---
HPI Consult Requested By Primary Care Physician Unknown History of Present Illness 72-year-old male with past medical history of DM and chronic pain who presented to the ED with complaints of weakness, fatigue, and hands and feet tingling. There are no complaints of chest pain or shortness of breath. In the ED, the patient became unresponsive and then was found to be in pulseless V. tach and CPR was initiated. His point of care potassium was 8.5. He had ROSC after 13 minutes. Post-CPR EKG showed ectopic atrial rhythms. Telemetry currently with NSR rate 100. Discussed with RN, no acute issues overnight. The patient is currently intubated and follows some commands. Per admission H&P, no prior known cardiac history, never had a stress test or cardiac catheterization, no family history of sudden cardiac , coronary artery disease or cardiomyopathy. Initial troponin normal, troponin this morning 0.62. (Homero Lu) Review of Systems ROS Limitations: Intubated (Homero Lu) Past Family Social History Allergies: Coded Allergies: No Known Drug Allergies (Verified Allergy, Unknown, 11/08/17) Past Medical History Type 2 Diabetes mellitus - now on insulin therapy Chronic headaches Chronic pain Obesity GERD now status post Mar Tobacco abuse Past Surgical History Mar Steroid injection left hip 2 weeks ago Reported Medications Reported Meds & Active Scripts Active Reported Metformin (Metformin HCl) 500 Mg Tab 500 Mg PO BIDPC Methadone (Methadone HCl) 10 Mg Tab 10 Mg PO TID Oxycodone (Oxycodone HCl) 10 Mg Tab 10 Mg PO Q6H PRN Active Ordered Medications Current Medications Medications (Trade) Dose Ordered Sig/Olivia Route Start Time Stop Time Status Last Admin Fentanyl Citrate 250 ml @ 5 mls/hr TITRATE PRN IV 11/08/17 02:45 11/08/17 02:53 (fentaNYL INJ) 100 mcg UNSCH X1 PRN IV PUSH 11/08/17 03:00 11/09/17 02:59 (Versed Inj) 2 mg Q15M PRN IV PUSH 11/08/17 03:00 (D50w (Vial) Inj) 50 ml UNSCH PRN IV PUSH 11/08/17 03:00 (Glucagon Inj) 1 mg UNSCH PRN OTHER 11/08/17 03:00 (NovoLOG SUPPLEMENTAL SCALE) 1 Q4HR SQ 11/08/17 04:00 11/08/17 06:51 Piperacillin Sod/ Tazobactam Sod 50 ml @ 100 mls/hr Q6H IV 11/08/17 03:00 11/08/17 04:18 Azithromycin 500 mg/Sodium Chloride 250 ml @ 250 mls/hr Q24H IV 11/08/17 04:00 11/08/17 04:00 (Peridex 0.12% Liq) 15 ml BID@08,20 MT 11/08/17 08:00 Sodium Chloride 1,000 ml @ 100 mls/hr Q10H IV 11/08/17 03:26 11/08/17 03:26 (NS Flush) 2 ml UNSCH PRN IV FLUSH 11/08/17 03:30 (NS Flush) 2 ml BID IV FLUSH 11/08/17 09:00 (Tylenol) 650 mg Q6H PRN PO 11/08/17 03:30 (Pepcid Inj) 20 mg Q12HR IV PUSH 11/08/17 09:00 (Pepcid) 20 mg Q12HR PO 11/08/17 09:00 (Zofran Inj) 4 mg Q6H PRN IV PUSH 11/08/17 03:30 (Albuterol Neb) 2.5 mg Q2HR NEB PRN INH 11/08/17 03:30 (Heparin Inj) 5,000 units Q12HR SQ 11/08/17 09:00 Future Hold Miscellaneous Information 1 Q361D XX 11/08/17 03:30 11/08/17 03:30 (Chlorhexidine 2% Cloth) 3 pack Taper DAILY@04 TOP 11/08/17 04:00 11/04/18 03:59 11/08/17 04:00 (Chlorhexidine 2% Cloth) 3 pack UNSCH PRN TOP 11/08/17 03:30 (Chikis-Colace) 1 tab BID PO 11/08/17 09:00 (Milk Of Magnesia Liq) 30 ml Q12H PRN PO 11/08/17 03:30 (Senokot) 17.2 mg Q12H PRN PO 11/08/17 03:30 (Dulcolax Supp) 10 mg DAILY PRN RECTAL 11/08/17 03:30 (Lactulose Liq) 30 ml DAILY PRN PO 11/08/17 03:30 Propofol 100 ml @ 2.865 mls/ hr TITRATE PRN IV 11/08/17 03:45 Phenylephrine HCl 160 mg/Dextrose 500 ml @ 7.5 mls/hr TITRATE PRN IV 11/08/17 07:00 (Brethine Inj) 1 mg UNSCH PRN SQ 11/08/17 07:00 Amiodarone HCl 450 mg/Sodium Chloride 250 ml @ 33.33 mls/ hr Q7H31M PRN IV 11/08/17 07:00 11/08/17 07:03 Family History Father of cancer in his late 60s Mother in her 80s but had no known medical history. There is no known family history of coronary artery disease, sudden cardiac , cardiomyopathy Social History He lives in [place] and has been visiting friends in [place] for the last 7 days. They drove down from [place]. He is typically followed by Dr. Chava Smith at [facility] in [place] He is . He is retired from [employer]. He is a [place] and has a [employer] He has a prior history of tobacco abuse but quit 15 years ago. He drinks 2-3 beers per day 3-4 days per week. He has been drinking more recently while he has been on vacation. (Homero Lu) Physical Exam Vital Signs Vital Signs Date Time Temp Pulse Resp B/P (MAP) Pulse Ox O2 Delivery O2 Flow Rate FiO2 11/08/17 07:54 98 45 11/08/17 07:03 106 151/83 11/08/17 07:00 106 16 151/83 (105) 99 11/08/17 06:00 99 11/08/17 06:00 100.2 99 16 80/52 (61) 99 11/08/17 06:00 99 11/08/17 05:00 102 16 105/58 (74) 100 11/08/17 04:15 102 20 146/85 (105) 98 11/08/17 04:00 100 11/08/17 04:00 100 24 108/59 (75) 96 11/08/17 04:00 110 11/08/17 03:46 100 70 11/08/17 03:30 104 25 80 11/08/17 03:15 101 22 114/65 (81) 87 11/08/17 03:00 98.8 99 14 103/63 (76) 100 128/18 03:00 100 11/08/17 02:19 97 100 11/08/17 02:15 123 12 197/105 (135) 97 Ventilator 100 11/08/17 01:35 97 11/08/17 01:10 94 100 11/08/17 00:50 98 12 170/110 (130) 96 Auto-Vent 11/08/17 00:49 100 100 11/08/17 00:40 96 12 171/79 (109) 99 Auto-Vent 11/08/17 00:33 100 11/08/17 00:19 56 20 187/81 (116) 98 Room Air 11/08/17 00:02 97.9 84 20 151/73 (99) 97 Room Air Physical Exam GENERAL: Well-developed well-nourished. Intubated. NECK: No carotid bruits. No JVD. CARDIOVASCULAR: Regular rate and rhythm. No murmur appreciated. RESPIRATORY: No accessory muscle use. Clear to auscultation. Breath sounds equal bilaterally. MUSCULOSKELETAL: No clubbing or cyanosis. Trace edema. NEUROLOGICAL: Follows some commands. Laboratory Laboratory Tests Test 11/08/17 00:30 11/08/17 01:10 11/08/17 01:42 11/08/17 02:25 Bedside Hemoglobin 16.3 Bedside Hematocrit 48.0 Prothrombin Time 10.2 Prothromb Time International Ratio 1.0 Activated Partial Thromboplast Time 23.9 Bedside Sodium 138 Bedside Potassium 8.5 Bedside Chloride 109 Bedside Blood Urea Nitrogen 30 Bedside Creatinine 1.0 Bedside Glucose 174 White Blood Count 28.5 Red Blood Count 5.14 Hemoglobin 13.7 Hematocrit 43.7 Mean Corpuscular Volume 85.0 Mean Corpuscular Hemoglobin 26.7 Mean Corpuscular Hemoglobin Concent 31.4 Red Cell Distribution Width 14.3 Platelet Count 404 Mean Platelet Volume 9.1 Neutrophils (%) (Auto) 63.8 Lymphocytes (%) (Auto) 28.7 Monocytes (%) (Auto) 5.4 Eosinophils (%) (Auto) 1.6 Basophils (%) (Auto) 0.5 Neutrophils # (Auto) 18.2 Lymphocytes # (Auto) 8.2 Monocytes # (Auto) 1.5 Eosinophils # (Auto) 0.5 Basophils # (Auto) 0.2 CBC Comment AUTO DIFF Differential Total Cells Counted 100 Neutrophils % (Manual) 59 Band Neutrophils % 9 Lymphocytes % 22 Monocytes % 8 Eosinophils % 2 Neutrophils # (Manual) 19.4 Differential Comment FINAL DIFF MANUAL Platelet Estimate HIGH Platelet Morphology Comment NORMAL Red Cell Morphology Comment NORMAL Blood Urea Nitrogen 25 Creatinine 1.29 Random Glucose 372 Total Protein 8.3 Albumin 3.8 Calcium Level 12.3 Alkaline Phosphatase 131 Aspartate Amino Transf (AST/SGOT) 63 Alanine Aminotransferase (ALT/SGPT) 52 Total Bilirubin 0.4 Sodium Level 140 Potassium Level 6.5 Chloride Level 110 Carbon Dioxide Level 21.5 Anion Gap 9 Estimat Glomerular Filtration Rate 55 Lactic Acid Level 6.2 Protein Corrected Calcium 11.5 Ammonia 31 Total Creatine Kinase 122 Troponin I LESS THAN 0.02 Free Thyroxine 1.12 Free Triiodothyronine (T3) pg/dL 3.32 Thyroid Stimulating Hormone 3rd Gen 5.140 Salicylates Level LESS THAN 1.7 Acetaminophen Level LESS THAN 2.0 Blood Gas Puncture Site RT RADIAL Blood Gas Patient Temperature 98.6 Blood Gas HCO3 22 Blood Gas Base Excess -5.5 Blood Gas Oxygen Saturation 94 Arterial Blood pH 7.14 Arterial Blood Partial Pressure CO2 68 Arterial Blood Partial Pressure O2 99 Arterial Blood Oxygen Content 19.0 Arterial Blood Carboxyhemoglobin 0.5 Arterial Blood Methemoglobin 0.8 Blood Gas Hemoglobin 14.4 Oxygen Delivery Device VENT Blood Gas Ventilator Setting SEE COMMENTS Blood Gas Inspired Oxygen 100 Nasal Screen MRSA (PCR) MRSA NOT DETECTED Test 11/08/17 05:25 11/08/17 06:03 11/08/17 07:10 Blood Gas Puncture Site RT RADIAL Blood Gas Patient Temperature 98.6 Blood Gas HCO3 22 Blood Gas Base Excess -2.9 Blood Gas Oxygen Saturation 97 Arterial Blood pH 7.32 Arterial Blood Partial Pressure CO2 45 Arterial Blood Partial Pressure O2 193 Arterial Blood Oxygen Content 19.2 Arterial Blood Carboxyhemoglobin 0.5 Arterial Blood Methemoglobin 1.5 Blood Gas Hemoglobin 13.8 Oxygen Delivery Device VENTILATOR Blood Gas Ventilator Setting PRVC/AC Blood Gas Inspired Oxygen 70 Blood Urea Nitrogen 26 Creatinine 1.28 Random Glucose 287 Total Protein 8.6 Albumin 4.1 Calcium Level 11.8 Alkaline Phosphatase 124 Aspartate Amino Transf (AST/SGOT) 86 Alanine Aminotransferase (ALT/SGPT) 64 Total Bilirubin 0.9 Sodium Level 138 Potassium Level 7.2 Chloride Level 107 Carbon Dioxide Level 25.6 Anion Gap 5 Estimat Glomerular Filtration Rate 55 Lactic Acid Level 3.4 Protein Corrected Calcium 10.9 Magnesium Level 2.4 Troponin I 0.62 Urine Color YELLOW Urine Turbidity HAZY Urine pH 5.5 Urine Specific Bel[place]ami GREATER THAN 1.050 Urine Protein 100 Urine Glucose (UA) 150 Urine Ketones NEG Urine Occult Blood LARGE Urine Nitrite NEG Urine Bilirubin NEG Urine Urobilinogen LESS THAN 2.0 Urine Leukocyte Esterase NEG Urine RBC Urine WBC 3 Urine Squamous Epithelial Cells <1 Urine Transitional Epithelial Cells <1 Urine Bacteria OCC Urine Mucus FEW Microscopic Urinalysis Comment CATH-CULTURE IND Urine Opiates Screen POS Urine Barbiturates Screen NEG Urine Amphetamines Screen NEG Urine Benzodiazepines Screen NEG Urine Cocaine Screen NEG Urine Cannabinoids Screen NEG Date/Time Source Procedure Growth Status 11/08/17 01:10 Blood Peripheral Aerobic Blood Culture Pending Received 11/08/17 01:10 Blood Peripheral Anaerobic Blood Culture Pending Received 11/08/17 04:05 Nasal Aspirate Influenza Types A,B Antigen (ANITA) - Final NEGATIVE FOR FLU A AND B ANTIGEN.... Complete 11/08/17 07:10 Urine Catheterized Urine Urine Culture Pending Received (Homero Lu) Result Diagram: 11/08/17 0110 11/08/17 0603 Imaging Last Impressions Chest X-Ray 11/08/1748 Signed Impressions: Service Date/Time: Wednesday, November 08, 2017 01:37 - CONCLUSION: 1. ET tube in good position. 2. Hazy density at the lungs bilaterally likely related to areas of consolidation or atelectasis. Dewayne Yañez MD Abdomen/Pelvis CT 11/08/1748 Signed Impressions: Service Date/Time: Wednesday, November 08, 2017 01:25 - CONCLUSION: 1. No abdominal aortic aneurysm. 2. Areas of consolidation or atelectasis at the lung bases. 3. Hepatic steatosis. Dewayne Yañez MD Head CT 11/08/17 0000 Signed Impressions: Service Date/Time: Wednesday, November 08, 2017 01:16 - CONCLUSION: No acute disease. Dewayne Yañez MD CT Angiography 11/08/17 0000 Signed Impressions: Service Date/Time: Wednesday, November 08, 2017 01:21 - CONCLUSION: 1. No pulmonary embolus. 2. Bilateral areas of consolidation in the posterior upper and lower lungs being worse on the right. Dewayne Yañez MD (Homero Lu) Assessment and Plan Assessment and Plan 72-year-old male with past medical history of DM and chronic pain who presented to the ED with complaints of weakness, fatigue, and hands and feet tingling. There are no complaints of chest pain or shortness of breath. In the ED, the patient became unresponsive and then was found to be in pulseless V. tach and CPR was initiated. His point of care potassium was 8.5. He had ROSC after 13 minutes. Post-CPR EKG showed ectopic atrial rhythms. Telemetry currently with NSR rate 100. Discussed with RN, no acute issues overnight. The patient is currently intubated and follows some commands. Per admission H&P, no prior known cardiac history, never had a stress test or cardiac catheterization, no family history of sudden cardiac , coronary artery disease or cardiomyopathy. Initial troponin normal, troponin this morning 0.62. V. tach arrest: Currently NSR. On amiodarone GTT. Elevated troponin: Troponin 0.02 at admission, increased to 0.62 this morning. No complaints of chest pain at admission. Hypokalemia: Potassium remains 7.2 today. Critical care managing with IV furosemide, IV insulin, IV bicarbonate, Kayexalate. Underlying renal endocrine workup in progress. (Homero Lu) Assessment and Plan VT - EKG reviewed. VT (and not SVT with aberrancy). +Negative concordance throughout precordial leads. I suspect due to hyperkalemia. Trop elevation likely CPR/Defib. EKG now NSR no ischemic changes Monitor QTc closely. rhythm stable. would DC amio gtt. antibiotics + hyperkalemia + amio gtt is recipe for torsades de pointes Will need LHC given events once recovery made (CKD/pulmonary status stable) Will need EP input after LHC (Damian Walden MD) Homero Lu Nov 08, 2017 09:37 Damian Walden MD Nov 08, 2017 13:51
--- NOTE | 2017-11-08 09:48 | RADRPT ---
EXAM DATE/TIME: 11/08/2017 09:14 [facility] COMPARISON: CT ABDOMEN & PELVIS W CONTRAST, November 08, 2017, 1:25. INDICATIONS : Increased BUN and creatinine. MEDICAL HISTORY : Cardiovascular disease. Diabetes mellitus type 2. SURGICAL HISTORY : Fusion, cervical. ENCOUNTER: Initial ACUITY: 1 day PAIN SCORE: Nonresponsive. LOCATION: Bilateral flank MEASUREMENTS: RIGHT KIDNEY: 11.8 x 5.5 x 5.7 cm LEFT KIDNEY: 13.0 x 5.1 x 7.9 cm FINDINGS: RIGHT KIDNEY: Renal cortex is normal in thickness and echotexture. No hydronephrosis, stone, or concerning mass. Small well-circumscribed benign renal cysts are noted. LEFT KIDNEY: Renal cortex is normal in thickness and echotexture. No hydronephrosis, stone, or mass. BLADDER: The bladder is decompressed with significant circumferential wall thickening. There is a partially im aged Kamara catheter within the lumen. CONCLUSION: Benign right renal cyst. Abnormal circumferential wall thickening within the bladder, greater than ex pected given the degree of decompression. 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 Kaylie Hayes MD on November 08, 2017 at 9:43 Board Certified Radiologist. This report was verified electronically.
[2017-11-08] MEDS ORDERED: FUROSEMIDE 40 MG/4 ML VIAL IV PUSH ONE (10:00)
[2017-11-08] MEDS ORDERED: INSULIN HUMAN REGULAR 1,000 UNITS/10 ML VIAL IV PUSH ONE (10:00)
--- NOTE | 2017-11-08 12:16 | EKG ---
Date Performed: 11/08/2017 Time Performed: 00:33:39 PTAGE: 72 years EKG: WIDE COMPLEX TACHYCARDIA LEFT BUNDLE BRANCH BLOCK WIDE COMPLEX TACHYCARDIA NEW SINCE PRIOR TRACING Clinical correlation is recommended ABNORMAL ECG PREVIOUS TRACING : 12/31/2010 19.19 DOCTOR: Michel Castle Interpretating Date/Time 11/08/2017 12:14:39
--- NOTE | 2017-11-08 12:17 | EKG ---
Date Performed: 11/08/2017 Time Performed: 00:40:45 PTAGE: 72 years EKG: ATRIAL FIBRILLATION BORDERLINE RIGHT AXIS DEVIATION MODERATE INTRAVENTRICULAR CONDUCTION DE LAY Compared to previous tracing, wide complex tachycardia has resolved ABNORMAL RHYTHM ECG PREVIOUS TRACING : 12/31/2010 19.19 DOCTOR: Michel Castle Interpretating Date/Time 11/08/2017 12:15:42
--- NOTE | 2017-11-08 12:18 | EKG ---
Date Performed: 11/08/2017 Time Performed: 10:03:05 PTAGE: 72 years EKG: SINUS TACHYCARDIA Compared to previous tracing, Sinus rhythm replaces atrial fibrillation ABNORMAL RHYTHM ECG PREVIOUS TRACING : 11/08/2017 00.40 DOCTOR: Michel Castle Interpretating Date/Time 11/08/2017 12:17:37
[2017-11-08 14:11] LABS: CHOLESTEROL/ HDL RATIO 2.97 RATIO
[2017-11-08 14:14] LABS: TROPONIN I 1.49 NG/ML (0.02-0.05)
--- NOTE | 2017-11-08 14:14 | ECHRPT ---
Indication: CARDIOMYOPATHY CONCLUSIONS The left ventricular systolic function is severely reduced with an estimated ejection fraction in th e range of 25-30%. There is global left ventricular dysfunction with mid to distal anterior wall akinesis. Doppler parameters are consistent with impaired left ventricular relaxtion (grade 1 diastolic dysfun ction). [id number] mitral valve regurgitation. There is a trivial pericardial effusion present. No hemodynamically significant echocardiographic features were observed (no pre-tamponade physiology). BP: / HR: Rhythm: MEASUREMENTS (Male / Female) Normal Values Technical Quality:Good 2D ECHO LV Diastolic Diameter PLAX 4.7 cm 4.2 - 5.9 / 3.9 - 5.3 cm LV Systolic Diameter PLAX 4.1 cm IVS Diastolic Thickness 0.9 cm 0.6 - 1.0 / 0.6 - 0.9 cm LVPW Diastolic Thickness 0.7 cm 0.6 - 1.0 / 0.6 - 0.9 cm LV Relative Wall Thickness 0.3 LA Systolic Diameter LX 3.5 cm 3.0 - 4.0 / 2.7 - 3.8 cm LV Ejection Fraction MOD BP 33.0 % >= 55 % LV Ejection Fraction MOD 4C 25.9 % LV Ejection Fraction 4C AL 27.8 % LV Ejection Fraction MOD 2C 33.3 % LV Ejection Fraction 2C AL 36.5 % DOPPLER Mitral E Point Velocity 58.2 cm/s Mitral A Point Velocity 83.9 cm/s Mitral E to A Ratio 0.7 TR Peak Velocity 241.0 cm/s TR Peak Gradient 23.2 mmHg FINDINGS LEFT VENTRICLE Normal left ventricular size. Wall thickness is normal. The left ventricular systolic function is severely reduced with an estimated ejection fraction in th e range of 25-30%. There is global left ventricular dysfunction with mid to distal anterior wall akinesis. Doppler parameters are consistent with impaired left ventricular relaxtion (grade 1 diastolic dysfun ction). RIGHT VENTRICLE Normal right ventricular size and systolic function. LEFT ATRIUM The left atrial size is upper limits of normal. RIGHT ATRIUM The right atrial size is normal. ATRIAL SEPTUM Normal atrial septal thickness. AORTA The aortic root and proximal ascending aorta are normal in size on limited imaging. MITRAL VALVE Structurally normal mitral valve. [id number] mitral valve regurgitation. The mitral valve regurgitation jet is directed centrally due to poor leaflet coaptation. AORTIC VALVE Aortic valve sclerosis is present. No aortic valve regurgitation. No aortic valve stenosis. TRICUSPID VALVE Structurally normal tricuspid valve. No tricuspid valve stenosis. There is trace tricuspid valve regurgitation. PULMONARY VALVE The pulmonary valve is not well visualized. VESSELS The inferior vena cava is normal in size. PERICARDIUM There is a trivial pericardial effusion present. No hemodynamically significant echocardiographic features were observed (no pre-tamponade physiology). Mauro Nath DO (Electronically Signed) Final Date:08 November 2017 14:13
[2017-11-08] MEDS ORDERED: OXYBUTYNIN CHLORIDE 5 MG TAB PO PRN (16:45)
[2017-11-09] VITALS (14 sets, daily range): BP systolic 92–130; BP diastolic 53–73; PULSE 72–93; RESP 16; TEMP 97.7–99.4; O2SAT 92–100
[2017-11-09] MEDS: SODIUM CHLOR 0.9% 1000 ML INJ 1,000 ML IV SCH ×3 (02:36→18:31)
[2017-11-09] MEDS: PIPERACIL-TAZO 3.375 GM PREMIX 50 ML IV SCH ×4 (02:37→20:24)
[2017-11-09] MEDS: AZITHROMYCIN INJ 500 MG in SODIUM CHLOR 0.9% 250 ML INJ 250 ML IV SCH (03:12)
[2017-11-09] MEDS: INSULIN ASPART SUPPLEMENTAL SCALE SQ SCH ×6 (04:00→20:00)
[2017-11-09] MEDS: CHLORHEXIDINE GLUCONATE 2 % 1 PACK (2 CLOTHS) TOP SCH (04:00)
[2017-11-09 04:41] LABS: AUTOMATED NEUTROPHIL # 9.9 TH/MM3 (1.8-7.7); BASOPHIL # 0.1 TH/MM3 (0-0.2); BASOPHIL % 0.5 % (0.0-2.0); EOSINOPHIL % 0.3 % (0.0-4.0); HEMATOCRIT 32.3 % (39.0-51.0); HEMOGLOBIN 10.7 GM/DL (13.0-17.0); LYMPH % 15.8 % (9.0-44.0); LYMPHOCYTE # 2.2 TH/MM3 (1.0-4.8); MEAN CELL VOLUME 82.1 FL (80.0-100.0); MEAN CORPUSCULAR HEMOGLOBIN 27.2 PG (27.0-34.0); MEAN CORPUSCULAR HGB CONC 33.2 % (32.0-36.0); MEAN PLATELET VOLUME 8.3 FL (7.0-11.0); MONO % 11.9 % (0.0-8.0); MONOCYTE # 1.6 TH/MM3 (0-0.9); NEUT % 71.5 % (16.0-70.0); PLATELET COUNT 224 TH/MM3 (150-450); RED BLOOD COUNT 3.93 MIL/MM3 (4.50-5.90); RED CELL DISTRIBUTION WIDTH 14.1 % (11.6-17.2); WHITE BLOOD COUNT 13.8 TH/MM3 (4.0-11.0)
[2017-11-09 05:21] LABS: ALBUMIN 2.9 GM/DL (3.4-5.0); ALKALINE PHOSPHATASE 84 U/L (45-117); ALT (GPT) 39 U/L (12-78); AST (GOT) 52 U/L (15-37); BICARBONATE 28.5 MEQ/L (21.0-32.0); BLOOD UREA NITROGEN 14 MG/DL (7-18); CALCIUM 8.4 MG/DL (8.5-10.1); CHLORIDE 105 MEQ/L (98-107); CREATININE 0.77 MG/DL (0.60-1.30); GLOMERULAR FILTRATION RATE 100 ML/MIN (>89); GLUCOSE,RANDOM 193 MG/DL (74-106); MAGNESIUM 1.4 MG/DL (1.5-2.5); PHOSPHORUS 2.7 MG/DL (2.5-4.9); SODIUM (NA) 141 MEQ/L (136-145); TOTAL BILIRUBIN ADULT 0.6 MG/DL (0.2-1.0); TOTAL PROTEIN 6.5 GM/DL (6.4-8.2)
[2017-11-09] MEDS: CHLORHEXIDINE 0.12% (ORAL KIT) 15 ML CUP MT SCH ×2 (08:00→20:00)
--- NOTE | 2017-11-09 08:29 | PD.CARD.PN ---
Subjective Subjective Remarks extubated feels well wants bishop out Objective Medications Current Medications Medications (Trade) Dose Ordered Sig/Olivia Route Start Time Stop Time Status Last Admin (D50w (Vial) Inj) 50 ml UNSCH PRN IV PUSH 11/08/17 03:00 (Glucagon Inj) 1 mg UNSCH PRN OTHER 11/08/17 03:00 (NovoLOG SUPPLEMENTAL SCALE) 1 Q4HR SQ 11/08/17 04:00 Future hold 11/09/17 04:00 Piperacillin Sod/ Tazobactam Sod 50 ml @ 100 mls/hr Q6H IV 11/08/17 03:00 11/09/17 02:37 Azithromycin 500 mg/Sodium Chloride 250 ml @ 250 mls/hr Q24H IV 11/08/17 04:00 11/09/17 03:12 (Peridex 0.12% Liq) 15 ml BID@08,20 MT 11/08/17 08:00 11/08/17 09:36 Sodium Chloride 1,000 ml @ 100 mls/hr Q10H IV 11/08/17 03:26 11/09/17 02:36 (NS Flush) 2 ml UNSCH PRN IV FLUSH 11/08/17 03:30 (NS Flush) 2 ml BID IV FLUSH 11/08/17 09:00 11/08/17 20:25 (Tylenol) 650 mg Q6H PRN PO 11/08/17 03:30 (Pepcid Inj) 20 mg Q12HR IV PUSH 11/08/17 09:00 11/08/17 09:35 (Pepcid) 20 mg Q12HR PO 11/08/17 09:00 11/08/17 20:26 (Zofran Inj) 4 mg Q6H PRN IV PUSH 11/08/17 03:30 (Albuterol Neb) 2.5 mg Q2HR NEB PRN INH 11/08/17 03:30 11/08/17 19:53 (Heparin Inj) 5,000 units Q12HR SQ 11/08/17 09:00 Future Hold Miscellaneous Information 1 Q361D XX 11/08/17 03:30 11/08/17 03:30 (Chlorhexidine 2% Cloth) 3 pack Taper DAILY@04 TOP 11/08/17 04:00 11/04/18 03:59 11/08/17 04:00 (Chlorhexidine 2% Cloth) 3 pack UNSCH PRN TOP 11/08/17 03:30 (Chikis-Colace) 1 tab BID PO 11/08/17 09:00 11/08/17 09:35 (Milk Of Magnesia Liq) 30 ml Q12H PRN PO 11/08/17 03:30 (Senokot) 17.2 mg Q12H PRN PO 11/08/17 03:30 (Dulcolax Supp) 10 mg DAILY PRN RECTAL 11/08/17 03:30 (Lactulose Liq) 30 ml DAILY PRN PO 11/08/17 03:30 (Roxicodone) 5 mg Q6H PRN PO 11/08/17 21:30 11/09/17 02:48 (Ditropan) 5 mg Q8HR PRN PO 11/08/17 16:45 11/08/17 17:22 Vital Signs / I&O Vital Signs Date Time Temp Pulse Resp B/P (MAP) Pulse Ox O2 Delivery O2 Flow Rate FiO2 11/09/17 06:00 86 11/09/17 04:00 90 11/09/17 04:00 98.6 90 16 105/53 (70) 95 11/09/17 02:00 88 11/09/17 00:00 93 11/09/17 00:00 99.4 93 16 92/53 (66) 92 11/08/17 22:00 110 11/08/17 20:00 99.9 99 14 127/66 (86) 98 11/08/17 20:00 99 11/08/17 19:53 98 Nasal Cannula 3.00 11/08/17 18:00 95 11/08/17 16:02 97 Nasal Cannula 3.00 11/08/17 16:00 98.4 97 13 142/73 (96) 98 11/08/17 16:00 97 3 11/08/17 16:00 97 11/08/17 15:07 35 11/08/17 15:07 99 35 11/08/17 14:00 92 11/08/17 12:00 98.1 96 16 107/65 (79) 97 11/08/17 12:00 35 11/08/17 12:00 96 11/08/17 11:21 97 35 11/08/17 10:00 104 11/08/17 09:00 99 35 I/O 11/08/17 11/08/17 11/08/17 11/09/17 11/09/17 11/09/17 07:00 15:00 23:00 07:00 15:00 23:00 Intake Total 634.6 ml 500 ml 425 ml 2020 ml Output Total 1400 ml 1900 ml 525 ml Balance -765.4 ml 500 ml -1475 ml 1495 ml Intake Oral 375 ml 720 ml IV Total 634.6 ml 500 ml 50 ml 1300 ml Output Urine Total 1400 ml 1900 ml 525 ml Gastric Drainage Total 0 ml # Bowel Movements 0 1 1 Physical Exam NECK: Supple, trachea midline. No JVD or lymphadenopathy. CARDIOVASCULAR: Regular rate and rhythm without murmurs, gallops, or rubs. RESPIRATORY: Breath sounds equal bilaterally. No accessory muscle use. GASTROINTESTINAL: Abdomen soft, non-tender, nondistended. MUSCULOSKELETAL: No cyanosis, + hands edema BACK: Nontender without obvious deformity. No CVA tenderness. Laboratory Laboratory Tests Test 11/08/17 08:48 11/08/17 09:50 11/08/17 13:00 11/08/17 16:20 Blood Gas Puncture Site LT RADIAL Blood Gas Patient Temperature 98.6 Blood Gas HCO3 23 mmol/L Blood Gas Base Excess -1.0 mmol/L Blood Gas Oxygen Saturation 97 % Arterial Blood pH 7.40 Arterial Blood Partial Pressure CO2 38 mmHg Arterial Blood Partial Pressure O2 148 mmHg Arterial Blood Oxygen Content 18.3 Vol % Arterial Blood Carboxyhemoglobin 0.6 % Arterial Blood Methemoglobin 1.4 % Blood Gas Hemoglobin 13.3 G/DL Oxygen Delivery Device VENTILATOR Blood Gas Ventilator Setting PRVC/AC Blood Gas Inspired Oxygen 45 % Potassium Level 4.5 MEQ/L 4.4 MEQ/L Troponin I 1.49 NG/ML 1.46 NG/ML Triglycerides Level 152 MG/DL Cholesterol Level 140 MG/DL LDL Cholesterol 63 MG/DL HDL Cholesterol 47.0 MG/DL Cholesterol/HDL Ratio 2.97 RATIO Test 11/09/17 04:10 White Blood Count 13.8 TH/MM3 Red Blood Count 3.93 MIL/MM3 Hemoglobin 10.7 GM/DL Hematocrit 32.3 % Mean Corpuscular Volume 82.1 FL Mean Corpuscular Hemoglobin 27.2 PG Mean Corpuscular Hemoglobin Concent 33.2 % Red Cell Distribution Width 14.1 % Platelet Count 224 TH/MM3 Mean Platelet Volume 8.3 FL Neutrophils (%) (Auto) 71.5 % Lymphocytes (%) (Auto) 15.8 % Monocytes (%) (Auto) 11.9 % Eosinophils (%) (Auto) 0.3 % Basophils (%) (Auto) 0.5 % Neutrophils # (Auto) 9.9 TH/MM3 Lymphocytes # (Auto) 2.2 TH/MM3 Monocytes # (Auto) 1.6 TH/MM3 Eosinophils # (Auto) 0.0 TH/MM3 Basophils # (Auto) 0.1 TH/MM3 CBC Comment DIFF FINAL Differential Comment Blood Urea Nitrogen 14 MG/DL Creatinine 0.77 MG/DL Random Glucose 193 MG/DL Total Protein 6.5 GM/DL Albumin 2.9 GM/DL Calcium Level 8.4 MG/DL Phosphorus Level 2.7 MG/DL Magnesium Level 1.4 MG/DL Alkaline Phosphatase 84 U/L Aspartate Amino Transf (AST/SGOT) 52 U/L Alanine Aminotransferase (ALT/SGPT) 39 U/L Total Bilirubin 0.6 MG/DL Sodium Level 141 MEQ/L Potassium Level 3.6 MEQ/L Chloride Level 105 MEQ/L Carbon Dioxide Level 28.5 MEQ/L Anion Gap 8 MEQ/L Estimat Glomerular Filtration Rate 100 ML/MIN Imaging Last Impressions Chest X-Ray 11/08/1748 Signed Impressions: Service Date/Time: Wednesday, November 08, 2017 01:37 - CONCLUSION: 1. ET tube in good position. 2. Hazy density at the lungs bilaterally likely related to areas of consolidation or atelectasis. Dewayne Yañez MD Abdomen/Pelvis CT 11/08/179 Signed Impressions: Service Date/Time: Wednesday, November 08, 2017 01:25 - CONCLUSION: 1. No abdominal aortic aneurysm. 2. Areas of consolidation or atelectasis at the lung bases. 3. Hepatic steatosis. Dewayne Yañez MD Renal Ultrasound 11/08/17 0000 Signed Impressions: Service Date/Time: Wednesday, November 08, 2017 09:14 - CONCLUSION: Benign right renal cyst. Abnormal circumferential wall thickening within the bladder, greater than expected given the degree of decompression. Findings may reflect inflammation secondary to cystitis versus neoplasm.. Kaylie Hayes MD Head CT 11/08/17 0000 Signed Impressions: Service Date/Time: Wednesday, November 08, 2017 01:16 - CONCLUSION: No acute disease. Dewayne Yañez MD CT Angiography 11/08/17 0000 Signed Impressions: Service Date/Time: Wednesday, November 08, 2017 01:21 - CONCLUSION: 1. No pulmonary embolus. 2. Bilateral areas of consolidation in the posterior upper and lower lungs being worse on the right. Dewayne Yañez MD Assessment and Plan Assessment and Plan extubated and doing well Cr normal. K+ normalized. + mild edema. DC IVF. DC bishop no further arrhythmias 2d echo today probable LHC tomorrow NPO p MN +/- EP evaluation pending [facility] results SBP low. no DANA or ARB or BB for now. Damian Walden MD Nov 09, 2017 08:29
[2017-11-09] MEDS: DOCUSATE SODIUM 50 MG/SENNA 8.6 MG TAB PO SCH ×2 (08:33→20:24)
[2017-11-09] MEDS: FAMOTIDINE 20 MG TAB PO SCH ×2 (08:33→20:24)
[2017-11-09] MEDS: SODIUM CHLORIDE 0.9% FLUSH 10 ML FLUSH IV FLUSH SCH ×2 (08:34→20:24)
[2017-11-09] MEDS: FAMOTIDINE 20 MG/2 ML VIAL IV PUSH SCH ×2 (08:34→20:24)
[2017-11-09] MEDS ORDERED: POTASSIUM CHLOR 40 MEQ PREMIX 100 ML IV PRN ×2 (09:00)
[2017-11-09] MEDS ORDERED: MAGNESIUM SULFATE INJ 4 GM in SODIUM CHLORIDE 0.9% INJ 92 ML IV PRN (09:00)
[2017-11-09] MEDS ORDERED: POTASSIUM CHLOR 20 MEQ PREMIX 100 ML IV PRN ×2 (09:00)
[2017-11-09] MEDS ORDERED: POTASSIUM PHOSPHATE MONOBASIC 500 MG TAB PO PRN (09:00)
[2017-11-09] MEDS ORDERED: MAGNESIUM OXIDE 400 MG TAB PO PRN (09:00)
[2017-11-09] MEDS ORDERED: SODIUM PHOSPHATE INJ 30 MMOL in SODIUM CHLOR 0.9% 250 ML INJ 240 ML IV PRN (09:00)
[2017-11-09] MEDS ORDERED: POTASSIUM PHOSPHATE INJ 30 MMOL in SODIUM CHLOR 0.9% 250 ML INJ 250 ML IV PRN (09:00)
[2017-11-09] MEDS ORDERED: POTASSIUM PHOSPHATE MONOBASIC 500 MG TAB PO/TUBE PRN (09:00)
[2017-11-09] MEDS ORDERED: MAGNESIUM SULFATE INJ 2 GM in SODIUM CHLORIDE 0.9% INJ 96 ML IV PRN (09:00)
--- NOTE | 2017-11-09 09:07 | HHI.CCPN ---
Subjective Remarks/Hospital Course Hospital Course: 72 yo WM with PMH of Type II DM on insulin therapy, chronic headaches on chronic methadone/oxycodone, obesity, OA presented to [facility] ED after her reportedly "has been feeling fatigued and weak" for 1 week. He was diaphoretic on arrival and complaining of tingling in hands and feet. He developed pulseless Vtach and CPR was initiated. He was intubated during code after administration of succinylcholine 100 mg and etomidate 20 mg IV. He was defibrillated, administered calcium chloride 2 g IV, bicarbonate 50 mEq IV, amiodarone 150 mg IV and had ROSC after 13 minutes. Point of care potassium immediately after code was 8.5. Creatinine was 1. Confirmatory labs were drawn just before he was administered insulin 10 units IV, 1 amp of D50 and additional bicarb 50 MEQ. They demonstrate potassium of 6.5 with slight hemolysis. Lactic acid is 6.2. Calcium is 11.5. Troponin is 0.02. Subsequent EKG demonstrates probable junctional rhythm. Qtc is normal. No ST elevation. No peaked T waves. His family indicates that his only specific complaint has been fatigue and generalized weakness over the last week. They state he has been under " a lot of stress" over the last week due to recent incarceration of his grandson, of two friends including one from suicide. Family specifically denies cough, chest pain, shortness of breath, orthopnea, hemoptysis, fever. He has chronic headaches but is not complained of anything beyond baseline. They deny any prior known cardiac history. Never had a stress test or cardiac catheterization. No family history of sudden cardiac , coronary artery disease or cardiomyopathy. No known history of kidney disease. Aside from the succinocholine that was given during CPR, the family denies any medications that may contribute to hyperkalemia, specifically no Cortez-I/ARB/potassium sparing diuretics/abx. No TCAs. reports he drank 2 large glasses of V8 juice today. Subjective: 11/09: extubated yesterday. potassium came down appropriately with medical management. elevated urine potassium (all urine electrolytes checked prior to diuretic therapy) which might suggest type 4 RTA (aldosterone pending). patient is without complaints today other than asks that Bishop catheter be removed. Dr. Walden planning to go ahead with [facility] tomorrow. ROS otherwise negative. Objective Vital Signs Date Time Temp Pulse Resp B/P (MAP) Pulse Ox O2 Delivery O2 Flow Rate FiO2 11/09/17 07:48 97 Nasal Cannula 3.00 11/09/17 06:00 86 11/09/17 04:00 98.6 16 105/53 (70) 11/08/17 15:07 35 Intake and Output 11/09/17 11/09/17 11/10/17 08:00 16:00 00:00 Intake Total 2020 ml Output Total 525 ml Balance 1495 ml Result Diagram: 11/09/17 0410 11/09/17 0410 Other Results Microbiology Date/Time Source Procedure Growth Status 11/08/17 04:05 Nasal Aspirate Influenza Types A,B Antigen (ANITA) - Final NEGATIVE FOR FLU A AND B ANTIGEN.... Complete 11/08/17 07:10 Urine Catheterized Urine Legionella Antigen - Final PRESUMPTIVE NEGATIVE FOR LEGIONELLA P... Complete 11/08/17 07:10 Urine Catheterized Urine Streptococcus pneumoniae Antigen (M - Final PRESUMPTIVE NEGATIVE FOR STREPTOCOCCU... Complete Objective Remarks GENERAL: Elderly male sitting in bed, no acute distress. SKIN: Warm and dry. HEAD: Atraumatic. Normocephalic. EYES: Pupils equal and round, 2mm and reactive bilaterally. No scleral icterus. No injection or drainage. ENT: No nasal bleeding or discharge. Mucous membranes pink and moist. NECK: Trachea midline. No JVD. CARDIOVASCULAR: Regular rate and rhythm, normal sinus rhythm on the monitor. RESPIRATORY: nc o2. equal chest rise. unlabored. GASTROINTESTINAL: Abdomen soft, non-tender, nondistended. no guarding. MUSCULOSKELETAL: Extremities without clubbing, cyanosis, or edema. No obvious deformities. NEUROLOGICAL: Awake and alert, RASS 0. CAM -. follows commands. no focal deficits. A/P Assessment and Plan Assessment: 72yM with cardiac arrest likely secondary to hyperkalemia of unclear etiology. confirmed again with patient that he has not taken any K- sparing diuretics. will consult nephrology to get their opinion regarding possible type 4 RTA or other rare causes of hyperkalemia. Agree with plans to eval for CAD with [facility]. clinically stable and can transfer out of ICU. NEURO: Chronic headaches Chronic pain s/p Lumbar fusion continue to hold methadone. oxycodone prn. CT brain - negative for acute abnormality 11/08 Ammonia in it normal states he previously had shrapnel in his body but that this has been removed in the past and that he has previously undergone MRI. RESP: Acute hypoxemic and hypercapnic respiratory failure - resolved. COPD h/o tobacco abuse CT pulmonary angiogram 11/08 negative for pulmonary embolus. bilateral lower lobe consolidation as per below. wean o2 by nc for goal spo2 > 90% CV: V. tach cardiac arrest elevated troponins, possible NSTEMI ?secondary to hyperkalemia. Potassium elevated in setting of resp/metabolic acidemia and after receiving succinocholine with no labs available pre-arrest. Also slight hemolysis. Renal function normal. Reviewed medications with and there are no meds that would explain awaiting aldosterone/renin levels. Cardiology consulted for recommendations as at this point not clear if hyperkalemia is secondary to acidemia/arrest vs the primary issue. Qtc normal. Received amiodarone 150 mg in the ED. d/c amiodarone drip. 2d echo with EF 25-30%, ?anterior wall motion abnormality GI: Heart healthy diet. NPO at [place] for LHC. FEN/RENAL: Acute Hyperkalemia- resolved. Hypomagnesemia 2gm mgso4 electrolyte protocol Normal renal function with brisk UOP. ?type r RTA. Check Aldosterone, renin, cortisol levels, urine lytes. trend K levels. ID: Bilateral pneumonia, probable aspiration Leukocytosis with bandemia CT demonstrates bilateral lower lobe infiltrates. This may represent aspiration pneumonia. We'll send sputum culture, influenza screen, Legionella, pneumococcal antigen. Follow-up blood cultures that were sent in the emergency department. Empiric coverage with Zosyn and azithromycin.: can de-escalate therapy after 48h negative cultures. HEME: No acute hematologic issues. Monitor CBC ENDO: Diabetes mellitus Elevated TSH T3 and T4 normal which may represent subclinical hypothyroidism but would avoid synthroid at this point in view of V tach. SSI F/u ACTH/cortisol level PROPH: SCDs for DVT prophylaxis. Heparin 5000 units subcutaneous every 12 hours for DVT prophylaxis after hyperkalemia controlled. Famotidine for stress ulcer prophylaxis. ACCESS: R IJ CVL placed 11/08 #2: d/c art line. d/c bishop. Dispo: transfer out of ICU. consult hospitalist service. Luis Alexis MD Nov 09, 2017 09:06
[2017-11-09] MEDS: MAGNESIUM SULFATE 1 GM PREMIX 100 ML IV SCH ×2 (10:46→11:48)
--- NOTE | 2017-11-09 10:50 | PD.CONS ---
HPI Service Nephrology Consult Requested By Dr. Alexis Reason for Consult Idiopathic hyperkalemia, possible type 4 RTA Primary Care Physician Unknown History of Present Illness Patient is a 72 yo WM who presented to ED for feeling fatigued and weak for 1 week. He developed pulseless VTAC and was resuscitated. He has a PMH of Type II DM on insulin therapy, chronic headaches on chronic methadone/oxycodone, obesity, and OA. Point of care potassium immediately after code was 8.5. Creatinine was 1. Insulin 10 units IV, 1 amp of D50 and additional bicarb 50 MEQ administered. Potassium is noted to be WNL today. No family history of sudden cardiac , coronary artery disease, or history of kidney disease. Per notes aside from the succinocholine that was given during CPR, the family denies any medications that may contribute to hyperkalemia, specifically no Cortez- I/ARB/potassium sparing diuretics/abx. Elevated urine potassium noted. (Aysha Villareal) Review of Systems Constitutional: COMPLAINS OF: Fatigue Respiratory: DENIES: Cough, Sputum production, Shortness of breath Cardiovascular: DENIES: Chest pain, Syncope Gastrointestinal: DENIES: Abdominal pain, Diarrhea, Nausea (Aysha Villareal) Past Family Social History Allergies: Coded Allergies: No Known Drug Allergies (Verified Allergy, Unknown, 11/08/17) Past Medical History Type 2 Diabetes mellitus - now on insulin therapy Chronic headaches Chronic pain Obesity GERD now status post Mar Tobacco abuse Past Surgical History Mar Steroid injection left hip 2 weeks ago Shoulder and neck procedures Active Ordered Medications Current Medications Medications (Trade) Dose Ordered Sig/Olivia Route Start Time Stop Time Status Last Admin (D50w (Vial) Inj) 50 ml UNSCH PRN IV PUSH 11/08/17 03:00 (Glucagon Inj) 1 mg UNSCH PRN OTHER 11/08/17 03:00 (NovoLOG SUPPLEMENTAL SCALE) 1 Q4HR SQ 11/08/17 04:00 Future hold 11/09/17 08:00 Piperacillin Sod/ Tazobactam Sod 50 ml @ 100 mls/hr Q6H IV 11/08/17 03:00 11/09/17 08:33 Azithromycin 500 mg/Sodium Chloride 250 ml @ 250 mls/hr Q24H IV 11/08/17 04:00 11/09/17 03:12 (Peridex 0.12% Liq) 15 ml BID@08,20 MT 11/08/17 08:00 11/08/17 09:36 Sodium Chloride 1,000 ml @ 100 mls/hr Q10H IV 11/08/17 03:26 11/09/17 02:36 (NS Flush) 2 ml UNSCH PRN IV FLUSH 11/08/17 03:30 (NS Flush) 2 ml BID IV FLUSH 11/08/17 09:00 11/09/17 08:34 (Tylenol) 650 mg Q6H PRN PO 11/08/17 03:30 (Pepcid Inj) 20 mg Q12HR IV PUSH 11/08/17 09:00 11/08/17 09:35 (Pepcid) 20 mg Q12HR PO 11/08/17 09:00 11/09/17 08:33 (Zofran Inj) 4 mg Q6H PRN IV PUSH 11/08/17 03:30 (Albuterol Neb) 2.5 mg Q2HR NEB PRN INH 11/08/17 03:30 11/08/17 19:53 (Heparin Inj) 5,000 units Q12HR SQ 11/08/17 09:00 Future Hold Miscellaneous Information 1 Q361D XX 11/08/17 03:30 11/08/17 03:30 (Chlorhexidine 2% Cloth) 3 pack Taper DAILY@04 TOP 11/08/17 04:00 11/04/18 03:59 11/08/17 04:00 (Chlorhexidine 2% Cloth) 3 pack UNSCH PRN TOP 11/08/17 03:30 (Chikis-Colace) 1 tab BID PO 11/08/17 09:00 11/09/17 08:33 (Milk Of Magnesia Liq) 30 ml Q12H PRN PO 11/08/17 03:30 (Senokot) 17.2 mg Q12H PRN PO 11/08/17 03:30 (Dulcolax Supp) 10 mg DAILY PRN RECTAL 11/08/17 03:30 (Lactulose Liq) 30 ml DAILY PRN PO 11/08/17 03:30 (Roxicodone) 5 mg Q6H PRN PO 11/08/17 21:30 11/09/17 02:48 (Ditropan) 5 mg Q8HR PRN PO 11/08/17 16:45 11/08/17 17:22 Potassium Chloride 100 ml @ 50 mls/hr Q2H PRN IV 11/09/17 09:00 Potassium Chloride 100 ml @ 50 mls/hr Q2H PRN IV 11/09/17 09:00 (K-Lyte Cl Eff) 50 meq UNSCH PRN PO 11/09/17 09:00 Potassium Chloride 100 ml @ 25 mls/hr UNSCH PRN IV 11/09/17 09:00 Potassium Chloride 100 ml @ 50 mls/hr Q2H PRN IV 11/09/17 09:00 Magnesium Sulfate 4 gm/Sodium Chloride 100 ml @ 50 mls/hr UNSCH PRN IV 11/09/17 09:00 (Mag-Ox) 800 mg UNSCH PRN PO 11/09/17 09:00 Magnesium Sulfate 2 gm/Sodium Chloride 100 ml @ 50 mls/hr UNSCH PRN IV 11/09/17 09:00 (K-Phos) 2,000 mg Q4H PRN PO 11/09/17 09:00 Sodium Phosphate 30 mmol/Sodium Chloride 250 ml @ 42 mls/hr UNSCH PRN IV 11/09/17 09:00 (K-Phos) 2,000 mg UNSCH PRN PO/TUBE 11/09/17 09:00 Potassium Phosphate 30 mmol/ Sodium Chloride 260 ml @ 42 mls/hr UNSCH PRN IV 11/09/17 09:00 Magnesium Sulfate/ Dextrose 100 ml @ 100 mls/hr Q1H IV 11/09/17 09:00 11/09/17 10:59 Family History Father of cancer in his late 60s renal Mother in her 80s but had no known medical history. Social History He lives in [place] and has been visiting friends in [place] for the last 7 days. They drove down from [place]. He is typically followed by Dr. Chava Smith at [facility] in [place] He is . He is retired from [employer]. He is a [place] and has a [employer] He has a prior history of tobacco abuse but quit 15 years ago. He drinks 2-3 beers per day 3-4 days per week. He has been drinking more recently while he has been on vacation. (Gellermann,Aysha M. RAILROAD CAR LOADER) Physical Exam Vital Signs Vital Signs Date Time Temp Pulse Resp B/P (MAP) Pulse Ox O2 Delivery O2 Flow Rate FiO2 11/09/17 08:00 97.7 79 116/56 (76) 98 11/09/17 07:48 97 Nasal Cannula 3.00 11/09/17 06:00 86 11/09/17 04:00 90 11/09/17 04:00 98.6 90 16 105/53 (70) 95 11/09/17 02:00 88 11/09/17 00:00 93 11/09/17 00:00 99.4 93 16 92/53 (66) 92 11/08/17 22:00 110 11/08/17 20:00 99.9 99 14 127/66 (86) 98 11/08/17 20:00 99 11/08/17 19:53 98 Nasal Cannula 3.00 11/08/17 18:00 95 11/08/17 16:02 97 Nasal Cannula 3.00 11/08/17 16:00 98.4 97 13 142/73 (96) 98 11/08/17 16:00 97 3 11/08/17 16:00 97 11/08/17 15:07 35 11/08/17 15:07 99 35 11/08/17 14:00 92 11/08/17 12:00 98.1 96 16 107/65 (79) 97 11/08/17 12:00 35 11/08/17 12:00 96 11/08/17 11:21 97 35 Physical Exam GENERAL: no acute distress. SKIN: Warm and dry. HEAD: Atraumatic. Normocephalic. EYES: Pupils equal and round, 2mm and reactive bilaterally. No scleral icterus. No injection or drainage. ENT: No nasal bleeding or discharge. Mucous membranes pink and moist. NECK: Trachea midline. No JVD. CARDIOVASCULAR: Regular rate and rhythm, normal sinus rhythm on the monitor. RESPIRATORY: Breath sounds clear. Equal chest rise. Unlabored. GASTROINTESTINAL: Abdomen soft, non-tender, nondistended. no guarding. MUSCULOSKELETAL: Extremities without clubbing, cyanosis, or edema. No obvious deformities. NEUROLOGICAL: Awake and alert Laboratory Laboratory Tests Test 11/08/17 13:00 11/08/17 16:20 11/09/17 04:10 Potassium Level 4.5 4.4 3.6 Troponin I 1.49 1.46 Triglycerides Level 152 Cholesterol Level 140 LDL Cholesterol 63 HDL Cholesterol 47.0 Cholesterol/HDL Ratio 2.97 White Blood Count 13.8 Red Blood Count 3.93 Hemoglobin 10.7 Hematocrit 32.3 Mean Corpuscular Volume 82.1 Mean Corpuscular Hemoglobin 27.2 Mean Corpuscular Hemoglobin Concent 33.2 Red Cell Distribution Width 14.1 Platelet Count 224 Mean Platelet Volume 8.3 Neutrophils (%) (Auto) 71.5 Lymphocytes (%) (Auto) 15.8 Monocytes (%) (Auto) 11.9 Eosinophils (%) (Auto) 0.3 Basophils (%) (Auto) 0.5 Neutrophils # (Auto) 9.9 Lymphocytes # (Auto) 2.2 Monocytes # (Auto) 1.6 Eosinophils # (Auto) 0.0 Basophils # (Auto) 0.1 CBC Comment DIFF FINAL Differential Comment Blood Urea Nitrogen 14 Creatinine 0.77 Random Glucose 193 Total Protein 6.5 Albumin 2.9 Calcium Level 8.4 Phosphorus Level 2.7 Magnesium Level 1.4 Alkaline Phosphatase 84 Aspartate Amino Transf (AST/SGOT) 52 Alanine Aminotransferase (ALT/SGPT) 39 Total Bilirubin 0.6 Sodium Level 141 Chloride Level 105 Carbon Dioxide Level 28.5 Anion Gap 8 Estimat Glomerular Filtration Rate 100 Date/Time Source Procedure Growth Status 11/08/17 01:10 Blood Peripheral Aerobic Blood Culture Pending Received 11/08/17 01:10 Blood Peripheral Anaerobic Blood Culture Pending Received 11/08/17 04:05 Nasal Aspirate Influenza Types A,B Antigen (ANITA) - Final NEGATIVE FOR FLU A AND B ANTIGEN.... Complete 11/08/17 07:10 Urine Catheterized Urine Urine Culture Pending Received (Aysha Villareal) Result Diagram: 11/09/1740911/09/17409 Assessment and Plan Problem List: (1) Hyperkalemia ICD Codes: E87.5 - Hyperkalemia Status: Acute Plan: Possible distal renal tubular acidosis Idiopathic hyperkalemia noted on admission. Potassium WNL now. Hypercalcemia noted at 11.5 on admission Potassium noted in urine. Aldosterone/ renin level pending Per notes the family denies any medications that may contribute to hyperkalemia , specifically no Cortez-I/ARB/potassium sparing diuretics/abx (Aysha Villareal) Problem List: (1) Hyperkalemia ICD Codes: E87.5 - Hyperkalemia Status: Acute Plan: Possible distal renal tubular acidosis Idiopathic hyperkalemia noted on admission. Potassium WNL now. Hypercalcemia noted at 11.5 on admission Potassium noted in urine. Aldosterone/ renin level pending Per notes the family denies any medications that may contribute to hyperkalemia , specifically no Cortez-I/ARB/potassium sparing diuretics/abx. Patient seen and examined, agree with above. Not taking NSAID, K in the urine was high, unlikely to have Renal tubular acidosis, also Hco3 is normal. Renin/Michael. pending. Need to restrict K in the diet, explain to the patient and . (Corinne Ness MD) Aysha Villareal Nov 09, 2017 10:50 Corinne Ness MD Nov 09, 2017 16:18
[2017-11-09] MEDS: ACETAMINOPHEN 325 MG TAB PO PRN (15:17)
[2017-11-10] VITALS (13 sets, daily range): BP systolic 115–163; BP diastolic 2–82; PULSE 66–91; RESP 17–24; TEMP 98.4–99; O2SAT 94–99
[2017-11-10] MEDS: PIPERACIL-TAZO 3.375 GM PREMIX 50 ML IV SCH ×4 (02:55→20:37)
[2017-11-10] MEDS: AZITHROMYCIN INJ 500 MG in SODIUM CHLOR 0.9% 250 ML INJ 250 ML IV SCH (03:28)
[2017-11-10] MEDS: CHLORHEXIDINE GLUCONATE 2 % 1 PACK (2 CLOTHS) TOP SCH (04:00)
[2017-11-10] MEDS: INSULIN ASPART SUPPLEMENTAL SCALE SQ SCH ×6 (04:00→20:00)
[2017-11-10 04:35] LABS: HEMATOCRIT 32.8 % (39.0-51.0); HEMOGLOBIN 10.8 GM/DL (13.0-17.0); MEAN CELL VOLUME 83.3 FL (80.0-100.0); MEAN CORPUSCULAR HEMOGLOBIN 27.4 PG (27.0-34.0); MEAN CORPUSCULAR HGB CONC 32.9 % (32.0-36.0); MEAN PLATELET VOLUME 8.9 FL (7.0-11.0); PLATELET COUNT 201 TH/MM3 (150-450); RED BLOOD COUNT 3.93 MIL/MM3 (4.50-5.90); RED CELL DISTRIBUTION WIDTH 14.3 % (11.6-17.2); WHITE BLOOD COUNT 10.1 TH/MM3 (4.0-11.0)
[2017-11-10 04:58] LABS: BICARBONATE 26.3 MEQ/L (21.0-32.0); CALCIUM 8.2 MG/DL (8.5-10.1); CREATININE 0.62 MG/DL (0.60-1.30)
--- NOTE | 2017-11-10 07:35 | HHI.PR ---
Subjective Remarks Patient in nad. No palpitations. Feels tired. Less sob. No n/v/d/c. Denies chest pain. No fever or chills. Objective Vitals Vital Signs Date Time Temp Pulse Resp B/P (MAP) Pulse Ox O2 Delivery O2 Flow Rate FiO2 11/10/17 06:00 77 11/10/17 04:00 84 11/10/17 04:00 98.8 84 115/65 (82) 99 11/10/17 02:00 83 11/10/17 02:00 91 11/10/17 00:00 98.5 83 17 121/62 (81) 99 11/10/17 00:00 83 11/09/17 22:00 92 11/09/17 20:26 100 Nasal Cannula 3.00 11/09/17 20:00 98.7 85 130/72 (91) 98 11/09/17 20:00 85 11/09/17 18:00 85 11/09/17 17:03 18 11/09/17 17:02 18 11/09/17 16:00 72 11/09/17 16:00 98.3 72 106/57 (73) 100 11/09/17 14:00 87 11/09/17 12:00 98.3 74 112/73 (86) 98 11/09/17 12:00 74 11/09/17 10:00 84 11/09/17 08:00 97.7 79 116/56 (76) 98 11/09/17 08:00 79 11/09/17 07:48 97 Nasal Cannula 3.00 I/O 11/09/17 11/09/17 11/09/17 11/10/17 11/10/17 11/10/17 07:00 15:00 23:00 07:00 15:00 23:00 Intake Total 2020 ml 250 ml 1340 ml 400 ml Output Total 525 ml 500 ml 900 ml Balance 1495 ml 250 ml 840 ml -500 ml Intake Oral 720 ml 240 ml 100 ml IV Total 1300 ml 250 ml 1100 ml 300 ml Output Urine Total 525 ml 500 ml 900 ml # Bowel Movements 1 0 0 Result Diagram: 11/10/17 0344 11/10/17 0344 Imaging Last Impressions Chest X-Ray 11/08/17 0049 Signed Impressions: Service Date/Time: Wednesday, November 08, 2017 01:37 - CONCLUSION: 1. ET tube in good position. 2. Hazy density at the lungs bilaterally likely related to areas of consolidation or atelectasis. Dewayne Yañez MD Abdomen/Pelvis CT 11/08/17 0049 Signed Impressions: Service Date/Time: Wednesday, November 08, 2017 01:25 - CONCLUSION: 1. No abdominal aortic aneurysm. 2. Areas of consolidation or atelectasis at the lung bases. 3. Hepatic steatosis. Dewayne Yañez MD Renal Ultrasound 11/08/17 0000 Signed Impressions: Service Date/Time: Wednesday, November 08, 2017 09:14 - CONCLUSION: Benign right renal cyst. Abnormal circumferential wall thickening within the bladder, greater than expected given the degree of decompression. Findings may reflect inflammation secondary to cystitis versus neoplasm.. Kaylie Hayes MD Head CT 11/08/17 0000 Signed Impressions: Service Date/Time: Wednesday, November 08, 2017 01:16 - CONCLUSION: No acute disease. Dewayne Yañez MD CT Angiography 11/08/17 0000 Signed Impressions: Service Date/Time: Wednesday, November 08, 2017 01:21 - CONCLUSION: 1. No pulmonary embolus. 2. Bilateral areas of consolidation in the posterior upper and lower lungs being worse on the right. Dewayne Yañez MD Objective Remarks GENERAL: Elderly male sitting in bed, appears in no acute distress. SKIN: Warm and dry. HEAD: Atraumatic. Normocephalic. EYES: Pupils equal and round, 2mm and reactive bilaterally. No scleral icterus. No injection or drainage. ENT: No nasal bleeding or discharge. Mucous membranes pink and moist. NECK: Trachea midline. No JVD. CARDIOVASCULAR: Regular rate and rhythm, normal sinus rhythm on the monitor. RESPIRATORY: nc o2. equal chest rise. unlabored. GASTROINTESTINAL: Abdomen soft, non-tender, nondistended. no guarding. MUSCULOSKELETAL: Extremities without clubbing, cyanosis, or edema. No obvious deformities. NEUROLOGICAL: Awake and alert, RASS 0. CAM -. follows commands. no focal deficits. A/P Assessment and Plan 72yM with cardiac arrest likely secondary to hyperkalemia of unclear etiology. confirmed again with patient that he has not taken any K-sparing diuretics. will consult nephrology to get their opinion regarding possible type 4 RTA or other rare causes of hyperkalemia. Agree with plans to eval for CAD with [facility]. clinically stable and can transfer out of ICU. NEURO: Chronic headaches Chronic pain s/p Lumbar fusion continue to hold methadone. oxycodone prn. CT brain - negative for acute abnormality 11/08 Ammonia in it normal states he previously had shrapnel in his body but that this has been removed in the past and that he has previously undergone MRI. RESP: Acute hypoxemic and hypercapnic respiratory failure - resolved. Extubated . COPD h/o tobacco abuse CT pulmonary angiogram 11/08 negative for pulmonary embolus. bilateral lower lobe consolidation as per below. wean o2 by mn for goal spo2 > 90% CV: V. tach cardiac arrest elevated troponins, possible NSTEMI ?secondary to hyperkalemia. Potassium elevated in setting of resp/metabolic acidemia and after receiving succinocholine with no labs available pre-arrest. Also slight hemolysis. Renal function normal. Reviewed medications with and there are no meds that would explain awaiting aldosterone/renin levels. Cardiology consulted for recommendations as at this point not clear if hyperkalemia is secondary to acidemia/arrest vs the primary issue. Qtc normal. Received amiodarone 150 mg in the ED. d/c amiodarone drip. 2d echo with EF 25-30%, ?anterior wall motion abnormality GI: Heart healthy diet. NPO at [place] for [facility]. FEN/RENAL: Acute Hyperkalemia- resolved. Hypomagnesemia 2gm mgso4 electrolyte protocol Normal renal function with brisk UOP. ?type r RTA. Check Aldosterone, renin, cortisol levels, urine lytes. trend K levels. ID: Bilateral pneumonia, probable aspiration Leukocytosis with bandemia CT demonstrates bilateral lower lobe infiltrates. This may represent aspiration pneumonia. We'll send sputum culture, influenza screen, Legionella, pneumococcal antigen. Follow-up blood cultures that were sent in the emergency department. Empiric coverage with Zosyn and azithromycin.: can de-escalate therapy after 48h negative cultures. HEME: No acute hematologic issues. Monitor CBC ENDO: Diabetes mellitus Elevated TSH T3 and T4 normal which may represent subclinical hypothyroidism but would avoid synthroid at this point in view of V tach. SSI F/u ACTH/cortisol level DVT ppx. SCD/ Heparin 5000 units subcutaneous every 12 hours. GI ppx Famotidine for stress ulcer prophylaxis. plan for [facility] by Dr. Walden 11/10/17 Ni Bravo MD Nov 10, 2017 07:35
[2017-11-10] MEDS: CHLORHEXIDINE 0.12% (ORAL KIT) 15 ML CUP MT SCH ×2 (08:00→20:00)
[2017-11-10] MEDS: SODIUM CHLORIDE 0.9% FLUSH 10 ML FLUSH IV FLUSH SCH ×2 (08:33→20:38)
[2017-11-10] MEDS: FAMOTIDINE 20 MG/2 ML VIAL IV PUSH SCH ×2 (08:33→20:38)
[2017-11-10] MEDS: FAMOTIDINE 20 MG TAB PO SCH ×2 (08:34→20:38)
[2017-11-10] MEDS: DOCUSATE SODIUM 50 MG/SENNA 8.6 MG TAB PO SCH ×2 (08:34→20:38)
--- NOTE | 2017-11-10 08:36 | PD.CARD.PN ---
Subjective Subjective Remarks feeling well. no events overnight. denies chest pain, sob or palpitations (Leah Ruiz) Objective Medications Current Medications Medications (Trade) Dose Ordered Sig/Olivia Route Start Time Stop Time Status Last Admin (D50w (Vial) Inj) 50 ml UNSCH PRN IV PUSH 11/08/17 03:00 (Glucagon Inj) 1 mg UNSCH PRN OTHER 11/08/17 03:00 (NovoLOG SUPPLEMENTAL SCALE) 1 Q4HR SQ 11/08/17 04:00 Future hold 11/09/17 20:00 Piperacillin Sod/ Tazobactam Sod 50 ml @ 100 mls/hr Q6H IV 11/08/17 03:00 11/10/17 02:55 Azithromycin 500 mg/Sodium Chloride 250 ml @ 250 mls/hr Q24H IV 11/08/17 04:00 11/10/17 03:28 (Peridex 0.12% Liq) 15 ml BID@08,20 MT 11/08/17 08:00 11/08/17 09:36 (NS Flush) 2 ml UNSCH PRN IV FLUSH 11/08/17 03:30 (NS Flush) 2 ml BID IV FLUSH 11/08/17 09:00 11/09/17 20:24 (Tylenol) 650 mg Q6H PRN PO 11/08/17 03:30 11/09/17 15:17 (Pepcid Inj) 20 mg Q12HR IV PUSH 11/08/17 09:00 11/08/17 09:35 (Pepcid) 20 mg Q12HR PO 11/08/17 09:00 11/09/17 20:24 (Zofran Inj) 4 mg Q6H PRN IV PUSH 11/08/17 03:30 (Albuterol Neb) 2.5 mg Q2HR NEB PRN INH 11/08/17 03:30 11/08/17 19:53 (Heparin Inj) 5,000 units Q12HR SQ 11/08/17 09:00 Future Hold Miscellaneous Information 1 Q361D XX 11/08/17 03:30 11/08/17 03:30 (Chlorhexidine 2% Cloth) 3 pack Taper DAILY@04 TOP 11/08/17 04:00 11/04/18 03:59 11/08/17 04:00 (Chlorhexidine 2% Cloth) 3 pack UNSCH PRN TOP 11/08/17 03:30 (Chikis-Colace) 1 tab BID PO 11/08/17 09:00 11/09/17 20:24 (Milk Of Magnesia Liq) 30 ml Q12H PRN PO 11/08/17 03:30 (Senokot) 17.2 mg Q12H PRN PO 11/08/17 03:30 (Dulcolax Supp) 10 mg DAILY PRN RECTAL 11/08/17 03:30 (Lactulose Liq) 30 ml DAILY PRN PO 11/08/17 03:30 (Roxicodone) 5 mg Q6H PRN PO 11/08/17 21:30 11/10/17 06:38 (Ditropan) 5 mg Q8HR PRN PO 11/08/17 16:45 11/08/17 17:22 Potassium Chloride 100 ml @ 50 mls/hr Q2H PRN IV 11/09/17 09:00 Potassium Chloride 100 ml @ 50 mls/hr Q2H PRN IV 11/09/17 09:00 (K-Lyte Cl Eff) 50 meq UNSCH PRN PO 11/09/17 09:00 Potassium Chloride 100 ml @ 25 mls/hr UNSCH PRN IV 11/09/17 09:00 Potassium Chloride 100 ml @ 50 mls/hr Q2H PRN IV 11/09/17 09:00 Magnesium Sulfate 4 gm/Sodium Chloride 100 ml @ 50 mls/hr UNSCH PRN IV 11/09/17 09:00 (Mag-Ox) 800 mg UNSCH PRN PO 11/09/17 09:00 Magnesium Sulfate 2 gm/Sodium Chloride 100 ml @ 50 mls/hr UNSCH PRN IV 11/09/17 09:00 (K-Phos) 2,000 mg Q4H PRN PO 11/09/17 09:00 Sodium Phosphate 30 mmol/Sodium Chloride 250 ml @ 42 mls/hr UNSCH PRN IV 11/09/17 09:00 (K-Phos) 2,000 mg UNSCH PRN PO/TUBE 11/09/17 09:00 Potassium Phosphate 30 mmol/ Sodium Chloride 260 ml @ 42 mls/hr UNSCH PRN IV 11/09/17 09:00 Vital Signs / I&O Vital Signs Date Time Temp Pulse Resp B/P (MAP) Pulse Ox O2 Delivery O2 Flow Rate FiO2 11/10/17 08:28 95 11/10/17 06:00 77 11/10/17 04:00 84 11/10/17 04:00 98.8 84 115/65 (82) 99 11/10/17 02:00 83 11/10/17 02:00 91 11/10/17 00:00 98.5 83 17 121/62 (81) 99 11/10/17 00:00 83 11/09/17 22:00 92 11/09/17 20:26 100 Nasal Cannula 3.00 11/09/17 20:00 98.7 85 130/72 (91) 98 11/09/17 20:00 85 11/09/17 18:00 85 11/09/17 17:03 18 11/09/17 17:02 18 11/09/17 16:00 72 11/09/17 16:00 98.3 72 106/57 (73) 100 11/09/17 14:00 87 11/09/17 12:00 98.3 74 112/73 (86) 98 11/09/17 12:00 74 11/09/17 10:00 84 I/O 11/09/17 11/09/17 11/09/17 11/10/17 11/10/17 11/10/17 07:00 15:00 23:00 07:00 15:00 23:00 Intake Total 2020 ml 250 ml 1340 ml 400 ml Output Total 525 ml 500 ml 900 ml Balance 1495 ml 250 ml 840 ml -500 ml Intake Oral 720 ml 240 ml 100 ml IV Total 1300 ml 250 ml 1100 ml 300 ml Output Urine Total 525 ml 500 ml 900 ml # Bowel Movements 1 0 0 Physical Exam GENERAL: SKIN: Warm and dry. HEAD: Atraumatic. Normocephalic. EYES: Pupils equal and round. ENT: No nasal bleeding or discharge. NECK: Trachea midline. No JVD. CARDIOVASCULAR: Regular rate and rhythm. no murmurs RESPIRATORY: No accessory muscle use. Clear to auscultation. Breath sounds equal bilaterally. GASTROINTESTINAL: Abdomen soft, non-tender, nondistended. MUSCULOSKELETAL: Extremities without clubbing, cyanosis, or edema. No obvious deformities. NEUROLOGICAL: Awake and alert. No obvious cranial nerve deficits. Normal speech. PSYCHIATRIC: Appropriate mood and affect; insight and judgment normal. Laboratory Laboratory Tests Test 11/10/17 03:44 White Blood Count 10.1 TH/MM3 Red Blood Count 3.93 MIL/MM3 Hemoglobin 10.8 GM/DL Hematocrit 32.8 % Mean Corpuscular Volume 83.3 FL Mean Corpuscular Hemoglobin 27.4 PG Mean Corpuscular Hemoglobin Concent 32.9 % Red Cell Distribution Width 14.3 % Platelet Count 201 TH/MM3 Mean Platelet Volume 8.9 FL Blood Urea Nitrogen 6 MG/DL Creatinine 0.62 MG/DL Random Glucose 141 MG/DL Calcium Level 8.2 MG/DL Sodium Level 142 MEQ/L Potassium Level 3.5 MEQ/L Chloride Level 108 MEQ/L Carbon Dioxide Level 26.3 MEQ/L Anion Gap 8 MEQ/L Estimat Glomerular Filtration Rate 128 ML/MIN (Leah Ruiz) Assessment and Plan Problem List: (1) Cardiopulmonary arrest ICD Codes: I46.9 - Cardiac arrest, cause unspecified Status: Acute Assessment and Plan 72 yo WM who presented with VT arrest and hyperkalemia cardiopulmonary arrest- no arrhythmia overnight. feeling well. potassium level remains normal. SBP improving echo= reduced EF 25-30% will proceed with LHC today (Leah Ruiz) Assessment and Plan LHC - nonobstructive CAD. NICM - EF 25-30%. cardiac arrest. likely hyperkalemia, but EF reduced. LifeVest vs EPS study. Consult EP will sign off call with further questions (Damian Walden MD) Leah Ruiz Nov 10, 2017 08:36 Damian Walden MD Nov 10, 2017 10:50
[2017-11-10] MEDS ORDERED: HEPARIN-NS/PF INJ 1,000 ML ONE (10:18)
[2017-11-10] MEDS ORDERED: MIDAZOLAM HCL 2 MG/2 ML VIAL ONE (10:18)
--- NOTE | 2017-11-10 10:56 | CATHPROC ---
[facility] HIS Report Study Information Study Number Admission Scheduled Start Study Start [id number] Nov 08 2017 1:12AM 11/09/2017 Nov 10 2017 10:15AM [place] [facility] Cardiac Catheterization Admit Source Facility Department Other [facility] Physician and Clinical Staff Initial Damian Connell [employer] Techanthony Montes RN, Karlos Recorder Laure Barrera,RT(R) Scrub Boone Galeano,RT(R) Scrub Hallie Akins ,RT(R) Procedures Performed Procedure Location (Site) Vessel Name Coronary Angiograms LCA Left Coronary Coronary Angiograms RCA Right Coronary L Heart Cath Wire insertion Radial (right) Radial Art. Equipment Time Associate Professor Of Physics Description Size Mfg Part Number Used/Scraped TRANSDUCER, TRUWAVE [id number] 10:21 PHELPS HUI * Used W/STOCKCOCK *[id number] *[id number] *[id number] 10:21 [employer] PACK, CCL CUSTOM * Used *[id number] 10:21 [employer] SUPPORT, ARTERIAL ADULT 71188 *[id number] Used [id number] 10:21 [employer] PACER PEN, SKIN DUAL W/ RULER * Used *[id number] BAND, RADIAL COMPRESSION TR [id number] 10:49 [employer] 29CM Used LARGE 29 *[id number] SHEATH, FR6 RADIAL PRELUDE 10:21 [employer] FR 6 [id number] Used EASE 11CM [id number] 10:21 [employer] WIRE, EXCHANGE 260CM 3MMJ 260CM Used *[id number] 10:21 NYCOMED OMNIPAQUE, 350 MG, 150ML 150ML [id number] Used [id number] 10:21 [employer]utabout BLANKET,WARM AIR CCL * Used *[id number] History: Risk Factors Family History of Hypertension Dyslipidemia Previous [place] Previous Heart Failure Premature CAD No No Yes No No Prior Valve Prior PCI Prior CABG Surgery No No No Cerebrovascular Peripheral Artery Chronic Lung On Dialysis Diabetes Diabetes Therapy Disease Disease Disease No No No No Yes Insulin History: Symptoms/Diagnosis Selection Items Chest pain Labs Hgb (g/dl) Hct (%) WBC (l/cumm) Platelets (thousands) 11.60-17.00 35.00-51.00 4.00-11.00 150.00-450.00 10.8 32.8 10.1 201 Glucose (mg/dl) BUN (mg/dl) Creatinine (mg/dl) BUN:Creatinine (1:x) 74.00-106.00 7.00-18.00 0.50-1.30 10.00-20.00 141 6 0.6 10 Na (meq/l) K (meq/l) 136.00-145.00 3.50-5.10 142 3.5 INR (PTT:PT) 0.90-1.10 1 Troponin I (ng/ml) CPK (u/l) CPK-MB (ng/ML) 0.02-0.05 26.00-308.00 0.50-3.60 1.5 122 Not Drawn Medication Medication Total Dose (Bolus/Oral) Medication Total Dosage/Unit 1% XYLOCAINE 20 mL FENTANYL 50 mcg HEPARIN 5000 units RADIAL COCKTAIL 5 mL (Bolus) VERSED 1 mg Medications (Bolus/Oral) Medication Time Given Dosage/Unit Administered By Reason FENTANYL 11/10/2017 10:33:27 AM 50 mcg Karlos Montes RN 50 mcg FENTANYL given by Karlos Montes RN in Left Wrist via Peripheral IV. VERSED 11/10/2017 10:34:35 AM 1 mg Karlos Montes RN 1 mg VERSED given by Karlos Montes RN in Right Wrist via Peripheral IV. 1% XYLOCAINE 11/10/2017 10:37:17 AM 20 mL Damian Walden 20 mL 1% XYLOCAINE given by Damian Walden in Right Radial via Subcutaneous. RADIAL COCKTAIL 11/10/2017 10:39:59 AM 5 mL (Bolus) Damian Walden 5 mL (Bolus) RADIAL COCKTAIL given by Damian Walden via Radial. Using [Solution Name]. 200 nitro onl y HEPARIN 11/10/2017 10:40:23 AM 5000 units Damian Walden 5000 units HEPARIN given by Damian Walden via Peripheral IV. Medication (Drip) Medication Time Given Dosage/Unit Concentration/Unit Diluent (ml) Solutio n IV Solutions 11/10/2017 10:25:49 AM 0 mL (IV) 500 NaCl .9 Patient arrived on IV Solutions in Left Wrist via Peripheral IV. Pump/Drip Flow = 20 ml/hr using NaCl .9. Initial Case Assessment Cardiovascular HR Rhythm NIBP Chest Pain 89 reg 161/91 0 Edema Present Skin color Skin None Normal Warm Circulatory - Right Pulses Dorsalis Pedis Femoral 1 3 Scale (0,1,2,3,4,d) Circulatory - Left Pulses Dorsalis Pedis Femoral 1 3 Scale (0,1,2,3,4,d) Circulatory - Lower Extremities Color Lower Right Color Lower Left Normal Normal Neurological State Oriented to time-place- Alert Moves all extremities person Respiration - General Respiration Rate SpO2 (%) (B/min) 21 94 Final Case Assessment Cardiovascular HR Rhythm NIBP Chest Pain 91 reg 140/83 0 Edema Present Skin color Skin None Normal Warm Circulatory - Right Pulses Dorsalis Pedis Femoral 1 3 Scale (0,1,2,3,4,d) Circulatory - Left Pulses Dorsalis Pedis Femoral 1 3 Scale (0,1,2,3,4,d) Circulatory - Lower Extremities Color Lower Right Color Lower Left Normal Normal Neurological State Oriented to time-place- Alert Moves all extremities person Respiration - General Respiration Rate SpO2 (%) (B/min) 20 91 Chronological Log Time Study Chronological Log 10:10:40 Patient arrived via Bed. 10:11:40 Patient Name, D.O.B, / Armband Verified By R.N. 10:12:21 Consent signed by the physician and the patient and verified by the [facility] staff. 10:13:25 Pre-op and post- op instructions given; patient acknowledges understanding of instructions. 10:14:29 Verbal Stimulation=2 Physical Stimulation=2 Airway=2 Respiration=2 TOTAL=8. (0=absent, 1=li mited, 2=present) 10:19:54 Reference ECG taken 10:22:44 Allens test performed on the right radial and ulnar artery with a positive result by karla rhoades 10:23:07 Patient has been NPO for More than 6Hrs. 10:23:09 Skin Breakdown-none 10:23:16 Patient Warmer Placed on the Table. 10:23:17 A # 20 IV was noted in the Wrist (left). Grade = 0 Vitals capture started with the following parameters, Patient=Adult, Interval=5 min, Initial Pr ngjjte=237 mmHg, 10:23:49 Deflation Rate=5 mmHg, Cuff placed on Right Arm 10:24:57 HR=92 bpm, JIWC=841/91 mmhg, SpO2=95.0 %, Resp=17 B/min, Pain=0, Ector=10, Cornelius=2 10:25:49 Patient arrived on IV Solutions in Left Wrist via Peripheral IV. Pump/Drip Flow = 20 ml/hr using NaCl .9. Assessment: Initial Case, HR=89 BPM, Rhythm=reg, MXOS=195/91 mmhg, Chest Pain=0, Edema=None, Co allison=Normal, Skin = Warm Right Pulses: Bryon Ped=1, Femoral=3 Left Pulses: Bryon Ped=1, Femoral=3 10:26:20 Lower Right Extremities: Color=Normal Lower Left Extremities: Color=Normal Neurological: State=Alert, Ox3, MACIEL Respiration: Resp=21 B/min, SpO2=94 % 10:27:52 Pressure channel 1 zeroed. 10:28:34 Right groin prepped with 2% chlorhexidine, and draped after a 3 min. waiting time. 10:28:39 MD texted 10:29:27 HR=91 bpm, PMFL=822/89 mmhg, SpO2=94.0 %, Resp=8 B/min, Pain=0, Ector=10, Cornelius=2 10:33:27 50 mcg FENTANYL given by Karlos Montes RN in Left Wrist via Peripheral IV. 10:34:26 HR=90 bpm, UTEP=116/89 mmhg, SpO2=95.0 %, Resp=12 B/min, Pain=0, Ector=10, Cornelius=2 10:34:31 MD arrived. 10:34:35 1 mg VERSED given by Karlos Montes RN in Right Wrist via Peripheral IV. Time Out. Correct patient, correct procedure, correct physician, power injector not loaded with contrast with surgical 10:36:59 team present. Time Out Concurred by MD and individual staff in procedure. 10:37:11 Case Start 10:37:12 Verbal Stimulation=2 Physical Stimulation=2 Airway=2 Respiration=2 TOTAL=8. (0=absent, 1=li mited, 2=present) 10:37:17 20 mL 1% XYLOCAINE given by Damian Walden in Right Radial via Subcutaneous. Access site was Radial Artery. right 10:39:25 10:39:27 HR=89 bpm, DJJE=094/88 mmhg, SpO2=91.0 %, Resp=15 B/min, Pain=0, Ector=10, Cornelius=2 10:39:36 A wire was inserted via Radial (right). A SHEATH, FR6 RADIAL PRELUDE EASE 11CM FR 6 was advanced into the Radial (right) using the Perc utaneous 10:39:50 technique. 10:39:59 5 mL (Bolus) RADIAL COCKTAIL given by Damian Walden via Radial. Using [Solution Name]. 200 nitro only 10:40:23 5000 units HEPARIN given by Damian Walden via Peripheral IV. 10:41:42 A JR 5.0 INFINITI CATHETER FR 5 was advanced over a wire. contrast was used for injections. Recorded Pressure: LV, HR=90, Condition=Condition 1 10:42:22 (Left Ventricle) LV 150/-1/23 Recorded Pressure: LV, Ao, HR=90, Condition=Condition 1 10:42:33 (Left Ventricle) LV 146/2/22, (Aorta) Ao 137/73/103 10:43:20 The RCA was injected and visualized at various angles. OMNIPAQUE, 350 MG, 150ML 150ML used . Recorded Pressure: Ao, HR=89, Condition=Condition 1 10:43:28 (Aorta) Ao 121/66/94 10:44:29 HR=86 bpm, HMTP=670/83 mmhg, SpO2=91.0 %, Resp=15 B/min, Pain=0, Ector=10, Cornelius=2 After removing the current catheter a JL 3.5 INFINITI CATHETER FR 5 was advanced over a WIRE, E XCHANGE 260CM 10:44:38 3MMJ 260CM. 10:45:23 The LCA was injected and visualized at various angles. OMNIPAQUE, 350 MG, 150ML 150ML used . 10:47:18 Catheter was removed 10:48:29 Case End Assessment: Final Case, HR=91 BPM, Rhythm=reg, EOQW=188/83 mmhg, Chest Pain=0, Edema=None, Col or=Normal, Skin = Warm Right Pulses: Bryon Ped=1, Femoral=3 Left Pulses: Bryon Ped=1, Femoral=3 10:48:35 Lower Right Extremities: Color=Normal Lower Left Extremities: Color=Normal Neurological: State=Alert, Ox3, MACIEL Respiration: Resp=20 B/min, SpO2=91 % 10:49:09 Catheter(s) removed without difficulty Radial Compression Device Used. 15 mLs of air placed in BAND, RADIAL COMPRESSION TR LARGE 29 2 9CM. Affected 10:49:10 hand 98 % O2 saturation. 10:49:28 HR=89 bpm, JHSP=405/81 mmhg, SpO2=91.0 %, Resp=15 B/min, Pain=0, Ector=10, Cornelius=2 10:49:34 Sterile dressing applied to site 10:49:35 No case complications noted. 10:49:35 Cine recording checked. 10:49:38 Bedside Report will be given. 10:49:45 Contrast Scanned 10:49:53 A Left Heart Cath was performed. 10:49:56 Clinical correlaton risk stratification. 10:51:42 Vitals capture stopped. End Study - Contrast Media Used In Study Contrast Total Opened (mL) Total Used (mL) Total Wasted (mL) Omnipaque 30 30 0 End Study - Maximum Contrast Load Max Contrast Load (mL) 809.8 End Study - Radiation Exposure Fluoro Time (minutes) 1.4 End Study - Sheaths Sheaths Pulled By Sheath Hold Time (min) [place], [place] 0 End Study - Patient Disposition Complications Transferred To No Regular Bed
--- NOTE | 2017-11-10 11:18 | MA ---
cc: CRUZITO BUTTS DATE 11/10/2017 INDICATION FOR PROCEDURE Cardiac arrest, mgx-KW-ovecxppnd VA. PROCEDURE PERFORMED 1. Fluoroscopy with interpretation. 2. Left heart catheterization. 3. Coronary angiography. METHOD The risks, benefits and alternatives were discussed with the patient. The patient understood and consented to the procedure. The patient was brought into the catheterization lab and placed on the catheterization table. The right wrist was prepped and draped in sterile fashion. The right wrist was anesthetized with 2% lidocaine. The right radial artery was cannulated. A 6 [place], 7 cm sheath was placed without difficulty. LEFT HEART CATHETERIZATION Intraventricular hemodynamics measured 146/10 mmHg. CORONARY ANGIOGRAPHY 1. The left main coronary is widely patent. 2. The left anterior descending coronary has mild luminal irregularities. 3. The left circumflex is widely patent, gives rise to a ramus intermedius branch with mild luminal irregularities. 4. The right coronary is a dominant vessel giving rise to a posterior descending branch and has mild luminal irregularities. CONCLUSIONS 1. Mild nonobstructive coronary disease. 2. Normal left-sided filling pressures. PLAN The patient had cardiac arrest I suspect from hyperkalemia, although his ejection fraction is reduced at 25-30%. Will get electrophysiology input for further management. MD JOSELITO Phelps/ABDULKADIR /10:55 AM /11:00 AM
[2017-11-10] MEDS ORDERED: IOHEXOL 350 MG/ML 50 ML BTL (for Cath Lab) OTHER ONE (11:25)
[2017-11-10] MEDS ORDERED: MUPIROCIN 2% OINT 22 GM TUBE TOPICAL ONE (15:00)
[2017-11-10] MEDS: ACETAMINOPHEN 325 MG TAB PO PRN (15:54)
--- NOTE | 2017-11-10 17:24 | HHI.NPPN ---
Subjective Additional Remarks Patient is alert, no chest pain, no SOB, seen after the cardiac Cath. Objective Data Data 11/10/17 11/11/17 19:00 07:00 Intake Total 100 ml Balance 100 ml IV Total 100 ml Vital Signs Date Time Temp Pulse Resp B/P (MAP) Pulse Ox O2 Delivery O2 Flow Rate FiO2 11/10/17 16:00 66 11/10/17 16:00 98.7 70 20 149/71 (97) 96 11/10/17 14:00 89 11/10/17 12:00 99.0 75 18 163/82 (109) 94 11/10/17 12:00 75 11/10/17 08:28 95 11/10/17 08:00 76 11/10/17 08:00 98.7 76 141/70 (93) 98 11/10/17 06:00 77 11/10/17 04:00 84 11/10/17 04:00 98.8 84 115/65 (82) 99 11/10/17 02:00 83 11/10/17 02:00 91 11/10/17 00:00 98.5 83 17 121/62 (81) 99 11/10/17 00:00 83 11/09/17 22:00 92 11/09/17 20:26 100 Nasal Cannula 3.00 11/09/17 20:00 98.7 85 130/72 (91) 98 11/09/17 20:00 85 11/09/17 18:00 85 -: 11/10/17 0344 11/10/17 0344 Physical Exam General Appearance: No Acute Distress, Comfortable Eyes Eye Exam: Pupils Equal Throat Throat Exam: Oral Mucosa Novinger & Moist Pulmonary Resp Exam: Clear Bilaterally, Breath Sounds Equal, No Distress, Decreased Bases Cardiology CV Exam: Regular, Normal Sinus Rhythm Gastrointestinal/Abdomen GI Exam: Soft, Non-Tender, Bowel Sounds Present Extremeties Extremities Exam: No Edema Neurologic Neuro Exam: Alert, Awake, Oriented Psychiatric Psych Exam: Appropriate Responses Assessment/Plan Problem List: (1) Hyperkalemia ICD Codes: E87.5 - Hyperkalemia Status: Acute Plan: Possible distal renal tubular acidosis Idiopathic hyperkalemia noted on admission. Potassium WNL now. Hypercalcemia noted at 11.5 on admission Potassium noted in urine. Aldosterone/ renin level pending Per notes the family denies any medications that may contribute to hyperkalemia , specifically no Cortez-I/ARB/potassium sparing diuretics/abx. Patient seen and examined, agree with above. Not taking NSAID, K in the urine was high, unlikely to have Renal tubular acidosis, also Hco3 is normal. Renin/Michael. pending. Need to restrict K in the diet, explain to the patient. Urine K was high, so he was able to excrete K in the urine. Calcium was high on admission, check SPEP. Can be discharged from Nephrology. (2) Cardiopulmonary arrest ICD Codes: I46.9 - Cardiac arrest, cause unspecified Status: Acute (3) Lung consolidation ICD Codes: J18.1 - Lobar pneumonia, unspecified organism Status: Acute Corinne Ness MD Nov 10, 2017 17:24
[2017-11-11] VITALS (14 sets, daily range): BP systolic 124–155; BP diastolic 59–93; PULSE 74–89; RESP 20–21; TEMP 97.9–99.2; O2SAT 93–98
[2017-11-11] MEDS: CHLORHEXIDINE GLUCONATE 2 % 1 PACK (2 CLOTHS) TOP SCH (04:00)
[2017-11-11] MEDS: INSULIN ASPART SUPPLEMENTAL SCALE SQ SCH ×6 (04:00→20:00)
[2017-11-11] MEDS: PIPERACIL-TAZO 3.375 GM PREMIX 50 ML IV SCH ×4 (04:03→20:32)
[2017-11-11] MEDS: AZITHROMYCIN INJ 500 MG in SODIUM CHLOR 0.9% 250 ML INJ 250 ML IV SCH (04:23)
[2017-11-11 04:38] LABS: AUTOMATED NEUTROPHIL # 6.9 TH/MM3 (1.8-7.7); BASOPHIL # 0.1 TH/MM3 (0-0.2); BASOPHIL % 0.8 % (0.0-2.0); EOSINOPHIL # 0.2 TH/MM3 (0-0.4); EOSINOPHIL % 1.9 % (0.0-4.0); HEMATOCRIT 30.9 % (39.0-51.0); HEMOGLOBIN 10.3 GM/DL (13.0-17.0); LYMPH % 19.8 % (9.0-44.0); MEAN CELL VOLUME 82.6 FL (80.0-100.0); MEAN CORPUSCULAR HEMOGLOBIN 27.4 PG (27.0-34.0); MEAN CORPUSCULAR HGB CONC 33.1 % (32.0-36.0); MEAN PLATELET VOLUME 9.3 FL (7.0-11.0); MONO % 9.7 % (0.0-8.0); NEUT % 67.8 % (16.0-70.0); PLATELET COUNT 220 TH/MM3 (150-450); RED BLOOD COUNT 3.74 MIL/MM3 (4.50-5.90); RED CELL DISTRIBUTION WIDTH 13.7 % (11.6-17.2); WHITE BLOOD COUNT 10.2 TH/MM3 (4.0-11.0)
[2017-11-11 04:54] LABS: BICARBONATE 25.3 MEQ/L (21.0-32.0); CALCIUM 8.7 MG/DL (8.5-10.1); CREATININE 0.73 MG/DL (0.60-1.30)
[2017-11-11] MEDS ORDERED: POTASSIUM CHLORIDE 10 MEQ CONTROLLED RELEASE TAB PO ONE (06:15)
[2017-11-11] MEDS: SODIUM CHLORIDE 0.9% FLUSH 10 ML FLUSH IV FLUSH SCH ×2 (08:36→20:32)
[2017-11-11] MEDS: DOCUSATE SODIUM 50 MG/SENNA 8.6 MG TAB PO SCH ×2 (08:36→20:32)
[2017-11-11] MEDS: FAMOTIDINE 20 MG TAB PO SCH ×2 (08:36→20:32)
[2017-11-11] MEDS: CHLORHEXIDINE 0.12% (ORAL KIT) 15 ML CUP MT SCH ×2 (08:37→20:00)
[2017-11-11] MEDS: ACETAMINOPHEN 325 MG TAB PO PRN (10:14)
--- NOTE | 2017-11-11 15:09 | HHI.PR ---
Subjective Remarks Seen earlier in the morning. Patient says he is considering ablation. Feels much better today. No n/v/d/c./No chest pain or sob. Feels tired. Objective Vitals Vital Signs Date Time Temp Pulse Resp B/P (MAP) Pulse Ox O2 Delivery O2 Flow Rate FiO2 11/11/17 12:00 99.0 75 154/87 (109) 95 11/11/17 08:00 98.5 82 135/93 (107) 96 11/11/17 07:00 98 11/11/17 06:00 82 11/11/17 04:00 99.2 78 20 124/59 (80) 97 11/11/17 04:00 78 11/11/17 02:00 74 11/11/17 00:00 89 11/11/17 00:00 97.9 89 21 128/72 (90) 95 11/10/17 22:00 79 11/10/17 20:30 97 21 11/10/17 20:00 78 11/10/17 20:00 98.4 78 24 149/75 (99) 98 11/10/17 18:00 76 11/10/17 17:27 22 11/10/17 16:00 66 11/10/17 16:00 98.7 70 20 149/71 (97) 96 I/O 11/10/17 11/10/17 11/10/17 11/11/17 11/11/17 11/11/17 07:00 15:00 23:00 07:00 15:00 23:00 Intake Total 400 ml 50 ml 220 ml 780 ml Output Total 900 ml 800 ml 650 ml Balance -500 ml 50 ml -580 ml 130 ml Intake Oral 100 ml 120 ml 480 ml IV Total 300 ml 50 ml 100 ml 300 ml Output Urine Total 900 ml 800 ml 650 ml # Bowel Movements 0 0 1 Result Diagram: 11/11/1732711/11/17327 Imaging Last Impressions Chest X-Ray 11/08/1748 Signed Impressions: Service Date/Time: Wednesday, November 08, 2017 01:37 - CONCLUSION: 1. ET tube in good position. 2. Hazy density at the lungs bilaterally likely related to areas of consolidation or atelectasis. Dewayne Yañez MD Abdomen/Pelvis CT 11/08/1748 Signed Impressions: Service Date/Time: Wednesday, November 08, 2017 01:25 - CONCLUSION: 1. No abdominal aortic aneurysm. 2. Areas of consolidation or atelectasis at the lung bases. 3. Hepatic steatosis. Dewayne Yañez MD Renal Ultrasound 11/08/17 0000 Signed Impressions: Service Date/Time: Wednesday, November 08, 2017 09:14 - CONCLUSION: Benign right renal cyst. Abnormal circumferential wall thickening within the bladder, greater than expected given the degree of decompression. Findings may reflect inflammation secondary to cystitis versus neoplasm.. Kaylie Hayes MD Head CT 11/08/17 0000 Signed Impressions: Service Date/Time: Wednesday, November 08, 2017 01:16 - CONCLUSION: No acute disease. Dewayne Yañez MD CT Angiography 11/08/17 0000 Signed Impressions: Service Date/Time: Wednesday, November 08, 2017 01:21 - CONCLUSION: 1. No pulmonary embolus. 2. Bilateral areas of consolidation in the posterior upper and lower lungs being worse on the right. Dewayne Yañez MD Objective Remarks GENERAL: Elderly male sitting in bed, appears in no acute distress. SKIN: Warm and dry. HEAD: Atraumatic. Normocephalic. EYES: Pupils equal and round, 2mm and reactive bilaterally. No scleral icterus. No injection or drainage. ENT: No nasal bleeding or discharge. Mucous membranes pink and moist. NECK: Trachea midline. No JVD. CARDIOVASCULAR: Regular rate and rhythm, normal sinus rhythm on the monitor. RESPIRATORY: nc o2. equal chest rise. unlabored. GASTROINTESTINAL: Abdomen soft, non-tender, nondistended. no guarding. MUSCULOSKELETAL: Extremities without clubbing, cyanosis, or edema. No obvious deformities. NEUROLOGICAL: Awake and alert, RASS 0. CAM -. follows commands. no focal deficits. A/P Assessment and Plan [id number] with cardiac arrest likely secondary to hyperkalemia of unclear etiology. confirmed again with patient that he has not taken any K-sparing diuretics. will consult nephrology to get their opinion regarding possible type 4 RTA or other rare causes of hyperkalemia. Agree with plans to eval for CAD with [facility]. clinically stable and can transfer out of ICU. NEURO: Chronic headaches Chronic pain S/p Lumbar fusion continue to hold methadone. oxycodone prn. CT brain - negative for acute abnormality 11/08 Ammonia in it normal states he previously had shrapnel in his body but that this has been removed in the past and that he has previously undergone MRI. RESP: Acute hypoxemic and hypercapnic respiratory failure - resolved. Extubated . COPD h/o tobacco abuse CT pulmonary angiogram 11/08 negative for pulmonary embolus. bilateral lower lobe consolidation as per below. wean o2 by nc for goal spo2 > 90% CV: V. tach cardiac arrest Elevated troponins, possible NSTEMI ?secondary to hyperkalemia. Potassium elevated in setting of resp/metabolic acidemia and after receiving succinocholine with no labs available pre-arrest. Also slight hemolysis. Renal function normal. Reviewed medications with and there are no meds that would explain awaiting aldosterone/renin levels. Cardiology consulted for recommendations as at this point not clear if hyperkalemia is secondary to acidemia/arrest vs the primary issue. Qtc normal. Received amiodarone 150 mg in the ED. d/c amiodarone drip. 2d echo with EF 25-30%, ?anterior wall motion abnormality S/p cardiac cath clean cath Discussed with Dr Stewart will talk with the patient again today. Patient is considering ablation here . otherwise needs life vest at discharge. Discussed with the patient at length. GI: Heart healthy diet. FEN/RENAL: Acute Hyperkalemia- resolved. Hypomagnesemia 2gm mgso4 electrolyte protocol Normal renal function with brisk UOP. ?type r RTA. Check Aldosterone, renin, cortisol levels, urine lytes. trend K levels. ID: Bilateral pneumonia, probable aspiration Leukocytosis with bandemia CT demonstrates bilateral lower lobe infiltrates. This may represent aspiration pneumonia. We'll send sputum culture, influenza screen, Legionella, pneumococcal antigen. Follow-up blood cultures that were sent in the emergency department. Empiric coverage with Zosyn and azithromycin.: can de-escalate therapy after 48h negative cultures. HEME: No acute hematologic issues. Monitor CBC ENDO: Diabetes mellitus Elevated TSH T3 and T4 normal which may represent subclinical hypothyroidism but would avoid synthroid at this point in view of V tach. SSI F/u ACTH/cortisol level DVT ppx. SCD/ Heparin 5000 units subcutaneous every 12 hours. GI ppx Famotidine for stress ulcer prophylaxis. s/p LHC by Dr. Walden 11/10/17 Plan for EP study/ ablation in the AM Ni Bravo MD Nov 11, 2017 15:09
[2017-11-11 22:32] LABS: ALB/GLOB RATIO (SPE) 1.19 (1.39-2.23)
--- NOTE | 2017-11-11 23:50 | HHI.PR ---
Subjective Remarks Feeling ok Objective Vital Signs Date Time Temp Pulse Resp B/P (MAP) Pulse Ox O2 Delivery O2 Flow Rate FiO2 11/11/17 23:06 94 Nasal Cannula 11/11/17 22:00 84 11/11/17 20:00 81 11/11/17 20:00 98.8 81 20 155/76 (102) 93 11/11/17 18:00 89 11/11/17 16:00 98.8 79 147/81 (103) 94 11/11/17 16:00 79 11/11/17 14:00 87 11/11/17 12:00 99.0 75 154/87 (109) 95 11/11/17 12:00 75 11/11/17 10:00 84 11/11/17 08:00 82 11/11/17 08:00 98.5 82 135/93 (107) 96 11/11/17 07:00 98 11/11/17 06:00 82 11/11/17 04:00 99.2 78 20 124/59 (80) 97 11/11/17 04:00 78 11/11/17 02:00 74 11/11/17 00:00 89 11/11/17 00:00 97.9 89 21 128/72 (90) 95 I/O 11/11/17 11/11/17 11/11/17 11/12/17 11/12/17 11/12/17 07:00 15:00 23:00 07:00 15:00 23:00 Intake Total 780 ml 800 ml Output Total 650 ml 625 ml Balance 130 ml 175 ml Intake Oral 480 ml 750 ml IV Total 300 ml 50 ml Output Urine Total 650 ml 625 ml # Bowel Movements 1 3 Result Diagram: 11/11/17 0328 11/11/17 0328 Imaging Alert, fully oriented Lungs: ventilated Heart: S1, S2 regular , no gallop Abdomen: soft, no mass Ext: no edema Last Impressions Chest X-Ray 11/08/1748 Signed Impressions: Service Date/Time: Wednesday, November 08, 2017 01:37 - CONCLUSION: 1. ET tube in good position. 2. Hazy density at the lungs bilaterally likely related to areas of consolidation or atelectasis. Dewayne Yañez MD Abdomen/Pelvis CT 11/08/1748 Signed Impressions: Service Date/Time: Wednesday, November 08, 2017 01:25 - CONCLUSION: 1. No abdominal aortic aneurysm. 2. Areas of consolidation or atelectasis at the lung bases. 3. Hepatic steatosis. Dewayne Yañez MD Renal Ultrasound 11/08/17 0000 Signed Impressions: Service Date/Time: Wednesday, November 08, 2017 09:14 - CONCLUSION: Benign right renal cyst. Abnormal circumferential wall thickening within the bladder, greater than expected given the degree of decompression. Findings may reflect inflammation secondary to cystitis versus neoplasm.. Kaylie Hayes MD Head CT 11/08/17 0000 Signed Impressions: Service Date/Time: Wednesday, November 08, 2017 01:16 - CONCLUSION: No acute disease. Dewayne Yañez MD CT Angiography 11/08/17 0000 Signed Impressions: Service Date/Time: Wednesday, November 08, 2017 01:21 - CONCLUSION: 1. No pulmonary embolus. 2. Bilateral areas of consolidation in the posterior upper and lower lungs being worse on the right. Dewayne Yañez MD Current Medications Medications (Trade) Dose Ordered Sig/Olivia Route Start Time Stop Time Status Last Admin (D50w (Vial) Inj) 50 ml UNSCH PRN IV PUSH 11/08/17 03:00 (Glucagon Inj) 1 mg UNSCH PRN OTHER 11/08/17 03:00 (NovoLOG SUPPLEMENTAL SCALE) 1 Q4HR SQ 11/08/17 04:00 Future hold 11/11/17 20:00 Piperacillin Sod/ Tazobactam Sod 50 ml @ 100 mls/hr Q6H IV 11/08/17 03:00 11/11/17 20:32 Azithromycin 500 mg/Sodium Chloride 250 ml @ 250 mls/hr Q24H IV 11/08/17 04:00 11/11/17 04:23 (Peridex 0.12% Liq) 15 ml BID@08,20 MT 11/08/17 08:00 11/11/17 08:37 (NS Flush) 2 ml UNSCH PRN IV FLUSH 11/08/17 03:30 (NS Flush) 2 ml BID IV FLUSH 11/08/17 09:00 11/11/17 20:32 (Tylenol) 650 mg Q6H PRN PO 11/08/17 03:30 11/11/17 10:14 (Pepcid) 20 mg Q12HR PO 11/08/17 09:00 11/11/17 20:32 (Zofran Inj) 4 mg Q6H PRN IV PUSH 11/08/17 03:30 (Albuterol Neb) 2.5 mg Q2HR NEB PRN INH 11/08/17 03:30 11/08/17 19:53 (Heparin Inj) 5,000 units Q12HR SQ 11/08/17 09:00 Future Hold Miscellaneous Information 1 Q361D XX 11/08/17 03:30 11/08/17 03:30 (Chlorhexidine 2% Cloth) 3 pack Taper DAILY@04 TOP 11/08/17 04:00 11/04/18 03:59 11/11/17 04:00 (Chlorhexidine 2% Cloth) 3 pack UNSCH PRN TOP 11/08/17 03:30 (Chikis-Colace) 1 tab BID PO 11/08/17 09:00 11/11/17 08:36 (Milk Of Magnesia Liq) 30 ml Q12H PRN PO 11/08/17 03:30 (Senokot) 17.2 mg Q12H PRN PO 11/08/17 03:30 (Dulcolax Supp) 10 mg DAILY PRN RECTAL 11/08/17 03:30 (Lactulose Liq) 30 ml DAILY PRN PO 11/08/17 03:30 (Roxicodone) 5 mg Q6H PRN PO 11/08/17 21:30 11/10/17 06:38 (Ditropan) 5 mg Q8HR PRN PO 11/08/17 16:45 11/08/17 17:22 Potassium Chloride 100 ml @ 50 mls/hr Q2H PRN IV 11/09/17 09:00 Potassium Chloride 100 ml @ 50 mls/hr Q2H PRN IV 11/09/17 09:00 11/11/17 05:35 (K-Lyte Cl Eff) 50 meq UNSCH PRN PO 11/09/17 09:00 Potassium Chloride 100 ml @ 25 mls/hr UNSCH PRN IV 11/09/17 09:00 Potassium Chloride 100 ml @ 50 mls/hr Q2H PRN IV 11/09/17 09:00 Magnesium Sulfate 4 gm/Sodium Chloride 100 ml @ 50 mls/hr UNSCH PRN IV 11/09/17 09:00 (Mag-Ox) 800 mg UNSCH PRN PO 11/09/17 09:00 Magnesium Sulfate 2 gm/Sodium Chloride 100 ml @ 50 mls/hr UNSCH PRN IV 11/09/17 09:00 (K-Phos) 2,000 mg Q4H PRN PO 11/09/17 09:00 Sodium Phosphate 30 mmol/Sodium Chloride 250 ml @ 42 mls/hr UNSCH PRN IV 11/09/17 09:00 (K-Phos) 2,000 mg UNSCH PRN PO/TUBE 11/09/17 09:00 Potassium Phosphate 30 mmol/ Sodium Chloride 260 ml @ 42 mls/hr UNSCH PRN IV 11/09/17 09:00 (Flu (Quadrivalent) Vaccine Inj) 0.5 ml ONCE ONCE IM 11/12/17 10:00 11/12/17 10:01 Assessment and Plan Problem List: (1) CHF (congestive heart failure) ICD Codes: I50.9 - Heart failure, unspecified Plan: NOn ischemic cardiomyopathy EF 25% CHF II Ventricular tachycardia Negative cath Need ICD for sudden sevondary prevention I was called by Dr Bravo. I did talkt again to the patient He wants to proceed with ICD insertion The risks, the nature and benefits discussed with him. He understands and agree to proceed. Procedure is schedule for tomorrow (2) Cardiopulmonary arrest ICD Codes: I46.9 - Cardiac arrest, cause unspecified Status: Acute Plan: Ventricular tachycardia Defib needed Tasha Stewart MD Nov 11, 2017 23:50
[2017-11-12] VITALS (12 sets, daily range): BP systolic 139–180; BP diastolic 65–88; PULSE 77–88; RESP 18; TEMP 98.8–99.4; O2SAT 93–98
[2017-11-12] MEDS ORDERED: ACETAMINOPHEN 1000 MG/100 ML 65 ML IV ONE (03:15)
[2017-11-12] MEDS: PIPERACIL-TAZO 3.375 GM PREMIX 50 ML IV SCH ×4 (03:23→22:34)
[2017-11-12] MEDS: AZITHROMYCIN INJ 500 MG in SODIUM CHLOR 0.9% 250 ML INJ 250 ML IV SCH (03:58)
[2017-11-12] MEDS: INSULIN ASPART SUPPLEMENTAL SCALE SQ SCH ×7 (04:00→23:24)
[2017-11-12] MEDS: CHLORHEXIDINE GLUCONATE 2 % 1 PACK (2 CLOTHS) TOP SCH (04:00)
--- NOTE | 2017-11-12 05:40 | MB ---
cc: CRUZITO BUTTS HANSCY M.D. DATE OF CONSULTATION November 10, 2017 ELECTROPHYSIOLOGY CONSULT REASON FOR CONSULTATION Congestive heart failure, for evaluation for defibrillator implantation. HISTORY OF PRESENT ILLNESS I was called by Dr. Butts to evaluate Mr. Eason. He is a 72-year-old gentleman with history of congestive heart failure, cardiomyopathy, diabetes mellitus, obesity, previous history of chronic smoker, was admitted due at the emergency room due to shortness of breath. During the hospitalization the gentleman developed ventricular tachycardia. He was resuscitated. Left heart catheterization was performed and showed non-occlusive coronary artery disease; ejection fraction was around 25%. I was consulted for further evaluation and management. The chart was reviewed. The patient was evaluated. ALLERGIES None. SOCIAL HISTORY As mentioned before, the patient is a chronic smoker. FAMILY HISTORY Noncontributory to his current medical condition. MEDICATIONS 1. Zithromax. 2. Piperacillin tazobactam. 3. Albuterol inhaler. 4. Famotidine. 5. Potassium. 6. Metoprolol. REVIEW OF SYSTEMS The patient refers no chest pain, no shortness of breath. No fever. PHYSICAL EXAMINATION GENERAL: On physical exam, alert, fully oriented. VITAL SIGNS: His blood pressure on evaluation is 168/82, pulse 75, respiratory rate 18. LUNGS: Ventilated. CARDIOVASCULAR: S1-S2, no gallop. No murmur. ABDOMEN: Obese. No mass. No bruit. EXTREMITIES: No edema. ELECTROCARDIOGRAM During the hospitalization shows ventricular tachycardia. Subsequent electrocardiogram indicated atrial fibrillation, diffuse ST changes. LABORATORY DATA Hemoglobin 10.8, white blood cells 10.1. Potassium 3.2, creatinine 0.73. Troponin 1.46., ASSESSMENT AND RECOMMENDATIONS Mr. Eason has congestive heart failure, has cardiomyopathy, he has ventricular tachycardia. He has normal coronaries. The gentleman is at very high risk of sudden . Beta-jn initiated. He is going to need a defibrillator for sudden secondary prevention. The risks, the nature and the benefit of the procedure are clearly stated to him. The risks include pneumothorax, cardiac perforation, stroke and even . He understands. At that point nevin states he belongs to the [facility]. He wants all of his procedures to be done in [place], [place], at the [facility]. I explained to the gentleman his risk for sudden are exponentially high. If he still insists to go home, then he will need a defibrillatory vest to be transferred to his preferred hospital. I will be available on a p.r.n. basis. Tasha Stewart MD HS/SSB /11:37 PM /5:10 AM
[2017-11-12 05:53] LABS: HEMATOCRIT 32.7 % (39.0-51.0); HEMOGLOBIN 10.9 GM/DL (13.0-17.0); MEAN CELL VOLUME 82.2 FL (80.0-100.0); MEAN CORPUSCULAR HEMOGLOBIN 27.3 PG (27.0-34.0); MEAN CORPUSCULAR HGB CONC 33.2 % (32.0-36.0); MEAN PLATELET VOLUME 9.3 FL (7.0-11.0); PLATELET COUNT 235 TH/MM3 (150-450); RED BLOOD COUNT 3.97 MIL/MM3 (4.50-5.90); RED CELL DISTRIBUTION WIDTH 14.1 % (11.6-17.2); WHITE BLOOD COUNT 13.6 TH/MM3 (4.0-11.0)
[2017-11-12 06:26] LABS: BICARBONATE 24.9 MEQ/L (21.0-32.0); CALCIUM 9.7 MG/DL (8.5-10.1); CREATININE 0.73 MG/DL (0.60-1.30)
[2017-11-12] MEDS ORDERED: SODIUM CHLOR 0.9% 250 ML INJ 250 ML ONE (07:04)
[2017-11-12] MEDS ORDERED: VANCOMYCIN HCL 1000 MG VIAL ONE (07:04)
[2017-11-12] MEDS ORDERED: VANCOMYCIN 500 MG VIAL ONE (07:04)
[2017-11-12] MEDS ORDERED: ceFAZolin INJ 1,000 MG VIAL ONE (07:04)
[2017-11-12] MEDS ORDERED: LIDOCAINE HCL 2% 50 ML VIAL ONE (07:04)
--- NOTE | 2017-11-12 08:21 | CATHPROC ---
Patient Name: ROBERT BEAUCHAMP Study #: [id number] Initial MD: Tasha Stewart Date of : 1945 Study Date: 11/12/2017 Cardiac Catheterization Report 11/12/2017 8:20:32 AM Financial #: [id number] 1 of 8 Patient Name: ROBERT BEAUCHAMP Study #: [id number] Initial MD: Tasha Stewart Date of : 1945 Study Date: 11/12/2017 Entire Case Report Patient Information Patient Name ROBERT BEAUCHAMP Date of 1945 Age 72 years Financial # [id number] Gender M AlternateID Lab Number 6 Room Number 505 Height (in) 69.0 Height (cm) 175.2 BSA 2.12 Weight (lbs) 213.4 Weight (kg) 97.0 Patient Address/Phone Number Home Address [facility] Home Phone Number [facility] [phone] Study Information Study Number Admission Scheduled Start Study Start [id number] Nov 08 2017 1:12AM 11/12/2017 Nov 12 2017 6:38AM [place] [facility] Cardiac Pacer/ICD Admit Source Facility Department Other [facility] Store Hand Physician and Clinical Staff Initial Tasha Rodriguez Ophthalmic Nurse Amparo Covington,SENIOR CORPORATE RECRUITER Other Anesthesia, FISH WARDEN Recorder Marisol Gamez,CELESTINA Deanub Chava Preston,RT(R) Procedures Performed Procedure Lead Insertion 11/12/2017 8:20:32 AM Financial #: [id number] 2 of 8 Patient Name: ROBERT BEAUCHAMP Study #: [id number] Initial MD: Tasha Stewart Date of : 1945 Study Date: 11/12/2017 Equipment Time Groundskeeping Maintenance Worker Description Size Mfg Part Number Used/Scraped DEFIBRILLATOR, IMPERIA 7 VR-T 07:51 BIOTRONIK [id number] Used DX MRI 07:43 BIOTRONIK LEAD, PLEXA PRO-MRI DF 65/15 [id number] Used DERMABOND, ADHESIVE SKIN [id number] 06:38 CORDIS/PACER * Used GLUE MINI *[id number] TP-1103 06:38 MEDLINE [employer] SUTURE, STRIP PLUS 1/2" * Used *[id number] 06:38 MEDLINE PACER TERESA, LIMB * 2530 *[id number] Used [id number] 06:38 MEDLINE PACER PACK, PACER CUSTOM * Used *[id number] 07:40 [facility] PACER SAFE SHEATH, FR8, 13CM FR 8 CLS-1008 Used 07:56 Needle Sponge Count 2 22 Used 07:56 Needle Sponge Count 20 200 Used 07:56 Needle Sponge Count 3 3 Used SUTURE, 0 ETHIBOND [CT1] (CX21D), 8pk SUTURE, 2-0 VICRYL [CT1] ([id number]) SUTURE, 2-0 VICRYL [CT1] ([id number]) [id number] 06:38 [facility],WARM AIR CCL * Used *[id number] [facility] PAD, ELECTROSURGICAL 06:38 * [id number] *[id number] Used SURGICAL GROUNDING ORANGE 1062-3071 06:38 [employer]. / * Used *65976 Equipment Model, Serial, Lot Number and Expiration Data Description Model Number Serial Number Lot Number Expiration Date DEFIBRILLATOR, IMPERIA 7 VR-T [id number] 01-09-2019 DX MRI LEAD, PLEXA PRO-MRI DF 65/15 [id number] 09-10-2019 Insurance Information Insurance Payor [facility] Third Republican Third Republican Number NF SG [facility] History: Allergies Allergy Reaction No Known Drug Allergies Labs 11/12/2017 8:20:32 AM Financial #: [id number] 3 of 8 Patient Name: ROBERT BEAUCHAMP Study #: [id number] Initial MD: Tasha Stewart Date of : 1945 Study Date: 8 Hgb (g/dl) Hct (%) RBC (MIL/MM3) WBC (l/cumm) Platelets (thousands) 11.60-17.00 35.00-51.00 4.00-5.90 4.00-11.00 150.00-450.00 10.0 32 3.9 13.6 235 Glucose (mg/dl) BUN (mg/dl) Creatinine (mg/dl) BUN:Creatinine (1:x) 74.00-106.00 7.00-18.00 0.50-1.30 10.00-20.00 161 8 0.7 11.4 Na (meq/l) K (meq/l) 136.00-145.00 3.50-5.10 141 3.4 INR (PTT:PT) 0.90-1.10 1 Medication Medication Total Dose (Bolus/Oral) Medication Total Dosage/Unit 2% XYLOCAINE 50 mL Medications (Bolus/Oral) Medication Time Given Dosage/Unit Administered By Reason 2% XYLOCAINE 11/12/2017 7:38:46 AM 50 mL Tasha Stewart 50 mL 2% XYLOCAINE given in lab by Tasha Stewart in Left upper chest via Subcutaneous. Medication (Drip) Medication Time Given Dosage/Unit Concentration/Unit Diluent (ml) Solution ANCEF 11/12/2017 7:33:54 AM 2 g 2 g ANCEF given in lab by Anesthesia, FISH WARDEN in Right Forearm via Peripheral IV. Ordered by Gary Stewart. Reason: As per physicians verbal order. VANCOMYCIN DRIP 11/12/2017 7:33:15 AM 1 g 1 g VANCOMYCIN DRIP given in lab by Anesthesia, FISH WARDEN in Right Forearm via Peripheral IV. Ordered by Tasha Faith. Reason: As per physicians verbal order. 11/12/2017 8:20:32 AM Financial #: [id number] 4 of 8 Patient Name: ROBERT BEAUCHAMP Study #: [id number] Initial MD: Tasha Stewart Date of : 1945 Study Date: 11/12/2017 Initial Case Assessment Cardiovascular HR Rhythm NIBP Chest Pain 83 sr 164/89 0 Edema Present Skin color Skin None Normal Warm Dry Circulatory - Right Pulses Radial 3 Scale (0,1,2,3,4,d) Circulatory - Left Pulses Radial 3 Scale (0,1,2,3,4,d) Circulatory - Lower Extremities Color Lower Right Color Lower Left Normal Normal Neurological State Oriented to time-place- Alert Moves all extremities person Respiration - General Respiration Rate SpO2 (%) O2 (lpm) (B/min) 18 95 4 11/12/2017 8:20:32 AM Financial #: [id number] 5 of 8 Patient Name: ROBERT BEAUCHAMP Study #: [id number] Initial MD: Tasha Stewart Date of : 1945 Study Date: 11/12/2017 Final Case Assessment Cardiovascular HR Rhythm NIBP Chest Pain 90 sr 156/85 0 Circulatory - Right Pulses Radial 3 Scale (0,1,2,3,4,d) Circulatory - Left Pulses Radial 3 Scale (0,1,2,3,4,d) Circulatory - Lower Extremities Color Lower Right Color Lower Left Normal Normal Neurological State Lethargic Moves all extremities Respiration - General Respiration Rate SpO2 (%) O2 (lpm) (B/min) 16 93 4 Chronological Log Time Study Chronological Log 7:00:00 Patient arrived via Bed. 7:00:10 Patient Name, D.O.B, / Armband Verified By R.N. 7:00:14 Consent signed by the physician and the patient and verified by the Store Hand staff. 7:00:18 Patient has been NPO for More than 6Hrs. 7:00:19 Pre-op and post- op instructions given; patient acknowledges understanding of instructions. 7:00:21 Skin Breakdown-none per pt 7:01:30 Patient Warmer Placed on the Table. 7:01:35 Disposable Defibrillator Pads Placed On Patient. 7:01:40 Ayana Prominences Protected 7:04:11 Anesthesia at bedside. Assumes care of patient. Shiela 7:18:44 A # 20 IV was noted in the Forearm (left). Grade = 0 0.9ns kvo and 20mEq potassium/100NS in fusing at 50cc/Hr 11/12/2017 8:20:32 AM Financial #: [id number] Patient Name: ROBERT BEAUCHAMP Study #: [id number] Initial MD: Tasha Stewart Date of : 1945 Study Date: 11/12/2017 7:19:48 History and physical on the chart. Assessment: Initial Case, HR=83 BPM, Rhythm=sr, RNRP=720/89 mmhg, Chest Pain=0, Edema=None, Col or=Normal, Skin = Warm, Dry Right Pulses: Radial=3 Left Pulses: Radial=3 7:19:55 Lower Right Extremities: Color=Normal Lower Left Extremities: Color=Normal Neurological: State=Alert, Ox3, MACIEL Respiration: Resp=18 B/min, SpO2=95 %, O2=4 lpm 7:20:28 Table restraints applied according to hospital policy 7:20:32 2% CHLORHEXIDINE GLUCONATE WASH AND NASAL SWIPE DONE PRIOR TO PROCEDURE. 7:20:34 Bovie ground pad applied to: right thigh 7:25:19 A # 20 IV was noted in the Forearm (right). Grade = 0 0.9ns kvo 7:28:10 MD arrived. First Sponge And Instrument Count Done by Chava Preston, RT(R). 7:30:55 Hypo's: 3, Sponges: 20, Bovie/scratch: 2 Sutures: 10, Blades: 1, Instruments: 26, Syveck Patches: 0 7:33:07 Left Upper Chest Prepped Times Two. 1 g VANCOMYCIN DRIP given in lab by Anesthesia, FISH WARDEN in Right Forearm via Peripheral IV. Ordere d by Tasha Stewart. 7:33:15 Reason: As per physicians verbal order. 2 g ANCEF given in lab by Anesthesia, FISH WARDEN in Right Forearm via Peripheral IV. Ordered by Tasha Stewart. Reason: As 7:33:54 per physicians verbal order. Time Out. Correct patient, procedure, procedure equipment, site and side verified with physicia n present. Time 7:38:07 concurred by MD, individual staff and FISH WARDEN. Time Out #2 - Consents verified, patient in correct position, all results are labled and displa yed, safety precautions 7:38:31 taken, antibiotics administered. Time out concurred by MD, individual staff and FISH WARDEN in procedu re 7:38:41 Case Start 7:38:46 50 mL 2% XYLOCAINE given in lab by Tasha Stewart in Left upper chest via Subcutaneous. 7:40:04 Vascular access was obtained in the Subclav. Vein (Lft. 7:40:10 Wire inserted 7:40:17 Surgical Incision Made. 7:42:10 Reference ECG taken 7:42:27 A SAFE SHEATH, FR8, 13CM FR 8 was advanced into the Subclav. Vein (Lft using the Modified S eldinger technique. 7:45:01 A LEAD, PLEXA PRO-MRI DF 65/15 was inserted and positioned in the RV. 7:46:12 Lead placement verified under fluoroscopy 7:46:43 The RV lead impedance and threshold being tested. 7:47:32 MD repositioning lead. 7:50:37 Lead placement verified under fluoroscopy 7:50:41 The RV lead impedance and threshold being tested. 7:50:50 A pocket was created at the L Upper Chest. 7:55:10 A DEFIBRILLATOR, IMPERIA 7 VR-T DX MRI was connected and placed in the pocket. 7:55:15 Pocket flushed with antibiotic solution 11/12/2017 8:20:32 AM Financial #: [id number] Patient Name: ROBERT BEAUCHAMP Study #: [id number] Initial MD: Tasha Stewart Date of : 1945 Study Date: 11/12/2017 Second Sponge And Instrument Count Done by Chava Preston RT(R). 7:56:34 Hypo's: 3, Sponges: 20, Bovie/scratch: 2 Sutures: 10, Blades: 1, Instruments: , Syveck Patches: 8:03:04 The pocket being closed by DB. 8:10:20 IMCU called. Spoke to Erika 8:10:36 Bedside Report will be given. Final Sponge And Instrument Count Done by Chava Preston RT(R). 8:16:33 Hypo's: 3, Sponges: 20, Bovie/scratch: 2 Sutures: 11, Blades: 1, Instruments: 26, Syveck Patches: 0 1 suture added after second count 8:16:54 The pocket was closed. 8:18:08 Case End 8:19:02 Steri-strips and a sterile dressing applied to site. 8:19:15 No case complications noted. 8:19:17 Cine recording checked. 8:19:20 Defibrillator and ground pads removed. Skin intact. Assessment: Final Case, HR=90 BPM, Rhythm=sr, PGBK=345/85 mmhg, Chest Pain=0 Right Pulses: Radial=3 Left Pulses: Radial=3 8:19:39 Lower Right Extremities: Color=Normal Lower Left Extremities: Color=Normal Neurological: State=Lethargic, MACIEL Respiration: Resp=16 B/min, SpO2=93 %, O2=4 lpm 8:29:06 A sling was placed on the affected arm. 8:29:25 Patient moved to stretcher End Study - Contrast Media Used In Study Contrast Total Opened (mL) Total Used (mL) Total Wasted (mL) Unspecified 0 0 0 End Study - Maximum Contrast Load Max Contrast Load (mL) 692.9 End Study - Radiation Exposure Fluoro Time (minutes) 2.6 End Study - Patient Disposition Complications Transferred To Interventional Outcome No Telemetry Bed successful 11/12/2017 8:20:32 AM Financial #: [id number]
[2017-11-12] MEDS ORDERED: MIDAZOLAM HCL 2 MG/2 ML VIAL ONE (08:25)
--- NOTE | 2017-11-12 08:33 | HHI.PR ---
Subjective Remarks Went for EP study ablation. Seen thereafter, Patient feels good. no chest pain, palpitations, lightheadedness or sob. Feels a little tired. No cough, fever or chills. Objective Vitals Vital Signs Date Time Temp Pulse Resp B/P (MAP) Pulse Ox O2 Delivery O2 Flow Rate FiO2 11/12/17 06:00 77 11/12/17 04:00 99.4 78 18 166/79 (108) 94 11/12/17 04:00 78 11/12/17 02:00 81 11/12/17 00:00 99.1 81 18 139/65 (89) 93 11/12/17 00:00 81 11/11/17 23:06 94 Nasal Cannula 11/11/17 22:00 84 11/11/17 20:00 81 11/11/17 20:00 98.8 81 20 155/76 (102) 93 11/11/17 18:00 89 11/11/17 16:00 98.8 79 147/81 (103) 94 11/11/17 16:00 79 11/11/17 14:00 87 11/11/17 12:00 99.0 75 154/87 (109) 95 11/11/17 12:00 75 11/11/17 10:00 84 I/O 11/11/17 11/11/17 11/11/17 11/12/17 11/12/17 11/12/17 07:00 15:00 23:00 07:00 15:00 23:00 Intake Total 780 ml 800 ml 845 ml Output Total 650 ml 625 ml 750 ml Balance 130 ml 175 ml 95 ml Intake Oral 480 ml 750 ml 480 ml IV Total 300 ml 50 ml 365 ml Output Urine Total 650 ml 625 ml 750 ml # Bowel Movements 1 3 3 Result Diagram: 11/12/17 0519 11/12/17 05 Imaging Last Impressions Chest X-Ray 11/08/1748 Signed Impressions: Service Date/Time: Wednesday, November 08, 2017 01:37 - CONCLUSION: 1. ET tube in good position. 2. Hazy density at the lungs bilaterally likely related to areas of consolidation or atelectasis. Dewayne Yañez MD Abdomen/Pelvis CT 11/08/1748 Signed Impressions: Service Date/Time: Wednesday, November 08, 2017 01:25 - CONCLUSION: 1. No abdominal aortic aneurysm. 2. Areas of consolidation or atelectasis at the lung bases. 3. Hepatic steatosis. Dewayne Yañez MD Renal Ultrasound 11/08/17 0000 Signed Impressions: Service Date/Time: Wednesday, November 08, 2017 09:14 - CONCLUSION: Benign right renal cyst. Abnormal circumferential wall thickening within the bladder, greater than expected given the degree of decompression. Findings may reflect inflammation secondary to cystitis versus neoplasm.. Kaylie Hayes MD Head CT 11/08/17 0000 Signed Impressions: Service Date/Time: Wednesday, November 08, 2017 01:16 - CONCLUSION: No acute disease. Dewayne Yañez MD CT Angiography 11/08/17 0000 Signed Impressions: Service Date/Time: Wednesday, November 08, 2017 01:21 - CONCLUSION: 1. No pulmonary embolus. 2. Bilateral areas of consolidation in the posterior upper and lower lungs being worse on the right. Dewayne Yañez MD Objective Remarks GENERAL: Elderly male sitting in bed, appears in no acute distress. CARDIOVASCULAR: Bulk dressing on the left upper chest c/d/di. Regular rate and rhythm, normal sinus rhythm on the monitor. RESPIRATORY: nc o2. equal chest rise. unlabored. GASTROINTESTINAL: Abdomen soft, non-tender, nondistended. no guarding. MUSCULOSKELETAL: Extremities without clubbing, cyanosis, or edema. No obvious deformities. NEUROLOGICAL: Awake and alert, RASS 0. CAM -. follows commands. no focal deficits. Procedures S/p EP study/ ablation by Dr Stewart on 11/12/17 A/P Assessment and Plan 72yM with cardiac arrest likely secondary to hyperkalemia of unclear etiology. confirmed again with patient that he has not taken any K-sparing diuretics. will consult nephrology to get their opinion regarding possible type 4 RTA or other rare causes of hyperkalemia. Agree with plans to eval for CAD with [facility]. clinically stable and can transfer out of ICU. NEURO: Chronic headaches Chronic pain S/p Lumbar fusion continue to hold methadone. oxycodone prn. CT brain - negative for acute abnormality 11/08 Ammonia in it normal states he previously had shrapnel in his body but that this has been removed in the past and that he has previously undergone MRI. RESP: Acute hypoxemic and hypercapnic respiratory failure - resolved. Extubated 1/28/ 18. COPD h/o tobacco abuse CT pulmonary angiogram 11/08 negative for pulmonary embolus. bilateral lower lobe consolidation as per below. wean o2 by nc for goal spo2 > 90% CV: V. tach cardiac arrest Elevated troponins, possible NSTEMI ?secondary to hyperkalemia. Potassium elevated in setting of resp/metabolic acidemia and after receiving succinocholine with no labs available pre-arrest. Also slight hemolysis. Renal function normal. Reviewed medications with and there are no meds that would explain awaiting aldosterone/renin levels. Cardiology consulted for recommendations as at this point not clear if hyperkalemia is secondary to acidemia/arrest vs the primary issue. Qtc normal. Received amiodarone 150 mg in the ED. d/c amiodarone drip. 2d echo with EF 25-30%, ?anterior wall motion abnormality S/p cardiac cath clean cath Discussed with Dr Stewart will talk with the patient again today. Patient is considering ablation here . otherwise needs life vest at discharge. Discussed with the patient at length. S/p EP study/ ablation by Dr Stewart on 11/12/17 GI: Heart healthy diet. FEN/RENAL: Acute Hyperkalemia- resolved. Hypomagnesemia 2gm mgso4 electrolyte protocol Normal renal function with brisk UOP. ?type r RTA. Check Aldosterone, renin, cortisol levels, urine lytes. trend K levels. ID: Bilateral pneumonia, probable aspiration Leukocytosis with bandemia CT demonstrates bilateral lower lobe infiltrates. This may represent aspiration pneumonia. We'll send sputum culture, influenza screen, Legionella, pneumococcal antigen. Follow-up blood cultures that were sent in the emergency department. Empiric coverage with Zosyn and azithromycin.: can de-escalate therapy after 48h negative cultures. HEME: No acute hematologic issues. Monitor CBC ENDO: Diabetes mellitus Elevated TSH T3 and T4 normal which may represent subclinical hypothyroidism but would avoid synthroid at this point in view of V tach. SSI F/u ACTH/cortisol level DVT ppx. SCD/ Heparin 5000 units subcutaneous every 12 hours. GI ppx Famotidine for stress ulcer prophylaxis. s/p LHC by Dr. Walden 11/10/17 S/p EP study/ ablation by Dr Stewart on 11/12/17 Ni Bravo MD Nov 12, 2017 08:33
--- NOTE | 2017-11-12 08:33 | HHI.DS ---
Discharge Summary Admission Date Nov 08, 2017 at 01:12 Discharge Date: Nov 13, 2017 Admitting Diagnosis Cardiac Arrest (1) Cardiopulmonary arrest ICD Code: I46.9 - Cardiac arrest, cause unspecified Status: Acute (2) Hyperkalemia ICD Code: E87.5 - Hyperkalemia Status: Acute (3) CHF (congestive heart failure) ICD Code: I50.9 - Heart failure, unspecified (4) Lung consolidation ICD Code: J18.1 - Lobar pneumonia, unspecified organism Status: Acute (5) Urinary bladder disorder ICD Code: N32.9 - Bladder disorder, unspecified Procedures S/p EP study/ ablation by Dr Stewart on 11/12/17 s/p LHC by Dr. Walden 11/10/17 Brief History - From Admission 72 yo WM with PMH of Type II DM on insulin therapy, chronic headaches on chronic methadone/oxycodone, obesity, OA [place] [facility] [place] after her reportedly "has been feeling fatigued and weak" for 1 week. He was diaphoretic on arrival and complaining of tingling in hands and feet. He developed pulseless Vtach and CPR was initiated. He was intubated during code after administration of succinylcholine 100 mg and etomidate 20 mg IV. He was defibrillated, administered calcium chloride 2 g IV, bicarbonate 50 mEq IV, amiodarone 150 mg IV and had ROSC after 13 minutes. Point of care potassium immediately after code was 8.5. Creatinine was 1. Confirmatory labs were drawn just before he was administered insulin 10 units IV, 1 amp of D50 and additional bicarb 50 MEQ. They demonstrate potassium of 6.5 with slight hemolysis. Lactic acid is 6.2. Calcium is 11.5. Troponin is 0.02. Subsequent EKG demonstrates probable junctional rhythm. Qtc is normal. No ST elevation. No peaked T waves. His family indicates that his only specific complaint has been fatigue and generalized weakness over the last week. They state he has been under " a lot of stress" over the last week due to recent incarceration of his grandson, of two friends including one from suicide. Family specifically denies cough, chest pain, shortness of breath, orthopnea, hemoptysis, fever. He has chronic headaches but is not complained of anything beyond baseline. They deny any prior known cardiac history. Never had a stress test or cardiac catheterization. No family history of sudden cardiac , coronary artery disease or cardiomyopathy. No known history of kidney disease. Aside from the succinocholine that was given during CPR, the family denies any medications that may contribute to hyperkalemia, specifically no [place]-I/ARB/potassium sparing diuretics/abx. No TCAs. reports he drank 2 large glasses of V8 juice today. CBC/BMP: 11/12/1719 11/12/17 0519 Significant Findings Laboratory Tests Test 11/10/17 03:44 11/11/17 03:28 11/12/17 05:19 Red Blood Count 3.93 MIL/MM3 (4.50-5.90) 3.74 MIL/MM3 (4.50-5.90) 3.97 MIL/MM3 (4.50-5.90) Hemoglobin 10.8 GM/DL (13.0-17.0) 10.3 GM/DL (13.0-17.0) 10.9 GM/DL (13.0-17.0) Hematocrit 32.8 % (39.0-51.0) 30.9 % (39.0-51.0) 32.7 % (39.0-51.0) Blood Urea Nitrogen 6 MG/DL (7-18) Random Glucose 141 MG/DL (74-106) 181 MG/DL (74-106) 161 MG/DL (74-106) Calcium Level 8.2 MG/DL (8.5-10.1) Chloride Level 108 MEQ/L (98-107) 108 MEQ/L (98-107) Monocytes (%) (Auto) 9.7 % (0.0-8.0) Monocytes # (Auto) 1.0 TH/MM3 (0-0.9) Potassium Level 3.2 MEQ/L (3.5-5.1) 3.4 MEQ/L (3.5-5.1) Albumin/Globulin Ratio 1.19 (1.39-2.23) Zzwpk-8-Nqftccuim 1.08 GM/DL (0.22-1.00) White Blood Count 13.6 TH/MM3 (4.0-11.0) Imaging Last Impressions Chest X-Ray 11/08/1748 Signed Impressions: Service Date/Time: Wednesday, November 08, 2017 01:37 - CONCLUSION: 1. ET tube in good position. 2. Hazy density at the lungs bilaterally likely related to areas of consolidation or atelectasis. Dewayne Yañez MD Abdomen/Pelvis CT 11/08/1748 Signed Impressions: Service Date/Time: Wednesday, November 08, 2017 01:25 - CONCLUSION: 1. No abdominal aortic aneurysm. 2. Areas of consolidation or atelectasis at the lung bases. 3. Hepatic steatosis. Dewayne Yañez MD Renal Ultrasound 11/08/17 0000 Signed Impressions: Service Date/Time: Wednesday, November 08, 2017 09:14 - CONCLUSION: Benign right renal cyst. Abnormal circumferential wall thickening within the bladder, greater than expected given the degree of decompression. Findings may reflect inflammation secondary to cystitis versus neoplasm.. Kaylie Hayes MD Head CT 11/08/17 0000 Signed Impressions: Service Date/Time: Wednesday, November 08, 2017 01:16 - CONCLUSION: No acute disease. Dewayne Yañez MD CT Angiography 11/08/17 0000 Signed Impressions: Service Date/Time: Wednesday, November 08, 2017 01:21 - CONCLUSION: 1. No pulmonary embolus. 2. Bilateral areas of consolidation in the posterior upper and lower lungs being worse on the right. Dewayne Yañez MD PE at Discharge GENERAL: Elderly male sitting in bed, appears in no acute distress. SKIN: Warm and dry. HEAD: Atraumatic. Normocephalic. EYES: Pupils equal and round, 2mm and reactive bilaterally. No scleral icterus. No injection or drainage. ENT: No nasal bleeding or discharge. Mucous membranes pink and moist. NECK: Trachea midline. No JVD. CARDIOVASCULAR: Regular rate and rhythm, normal sinus rhythm on the monitor. RESPIRATORY: nc o2. equal chest rise. unlabored. GASTROINTESTINAL: Abdomen soft, non-tender, nondistended. no guarding. MUSCULOSKELETAL: Extremities without clubbing, cyanosis, or edema. No obvious deformities. NEUROLOGICAL: Awake and alert, RASS 0. CAM -. follows commands. no focal deficits. Pt update on day of discharge Feels better, slight pain at the surgical site. He is happy he had the procedure done. No chest pain or sob, no n/v/d/c. Denies fever or chills. Hospital Course 72yM with cardiac arrest likely secondary to hyperkalemia of unclear etiology. confirmed again with patient that he has not taken any K-sparing diuretics. will consult nephrology to get their opinion regarding possible type 4 RTA or other rare causes of hyperkalemia. NEURO: Chronic headaches Chronic pain S/p Lumbar fusion continue to hold methadone, can resume at DC. oxycodone prn. CT brain - negative for acute abnormality 11/08 Ammonia in it normal states he previously had shrapnel in his body but that this has been removed in the past and that he has previously undergone MRI. RESP: Acute hypoxemic and hypercapnic respiratory failure - resolved. Extubated . COPD h/o tobacco abuse CT pulmonary angiogram 11/08 negative for pulmonary embolus. bilateral lower lobe consolidation as per below. wean o2 by nc for goal spo2 > 90% CV: V. tach cardiac arrest Elevated troponins, possible NSTEMI ?secondary to hyperkalemia. Potassium elevated in setting of resp/metabolic acidemia and after receiving succinocholine with no labs available pre-arrest. Also slight hemolysis. Renal function normal. Reviewed medications with and there are no meds that would explain awaiting aldosterone/renin levels. Cardiology consulted for recommendations as at this point not clear if hyperkalemia is secondary to acidemia/arrest vs the primary issue. Qtc normal. Received amiodarone 150 mg in the ED. d/c amiodarone drip. 2d echo with EF 25-30%, ?anterior wall motion abnormality S/p cardiac cath clean cath Discussed with the patient at length. S/p EP study/ ablation by Dr Stewart on 11/12/17 GI: Heart healthy diet. FEN/RENAL: Acute Hyperkalemia- resolved. Hypomagnesemia 2gm mgso4 electrolyte protocol Normal renal function with brisk UOP. ?type r RTA. Check Aldosterone, renin, cortisol levels, urine lytes. trend K levels. ID: Bilateral pneumonia, probable aspiration Leukocytosis with bandemia CT demonstrates bilateral lower lobe infiltrates. This may represent aspiration pneumonia. We'll send sputum culture, influenza screen, Legionella, pneumococcal antigen. Follow-up blood cultures that were sent in the emergency department. Empiric coverage with Zosyn and azithromycin.:de-escalate therapy after 48h negative cultures. HEME: No acute hematologic issues. Monitor CBC ENDO: Diabetes mellitus Elevated TSH T3 and T4 normal which may represent subclinical hypothyroidism but would avoid synthroid at this point in view of V tach. SSI F/u ACTH/cortisol level DVT ppx. SCD/ Heparin 5000 units subcutaneous every 12 hours. GI ppx Famotidine for stress ulcer prophylaxis. s/p LHC by Dr. Walden 11/10/17 S/p EP study/ ablation by Dr Stewart on 11/12/17 Patient improved , was DC home in stable condition to follow up as OP with PCP and consultants Pt Condition on Discharge: Stable Discharge Disposition: Discharge Home Discharge Time: > 30 minutes Discharge Instructions DIET: Follow Instructions for: Heart Healthy Diet Activities you can perform: Regular-No Restrictions Follow up Referrals: Cardiology - 1 Week Nephrology - 1 Week PCP Follow-up - 2-3 Days Urology - 1 Week New Medications: Cefuroxime (Ceftin) 250 Mg Tab 250 MG PO BID for infection , #10 TAB Losartan (Cozaar) 50 Mg Tab 50 MG PO DAILY for Blood Pressure Management, #30 TAB Oxybutynin (Ditropan) 5 Mg Tab 5 MG PO Q8HR PRN for bladder spasm, #30 TAB Continued Medications: Metformin (Metformin) 500 Mg Tab 500 MG PO BIDPC for Blood Sugar Management, #60 TAB 0 Refills Methadone (Methadone) 10 Mg Tab 10 MG PO TID, TAB 0 Refills Oxycodone (Oxycodone) 10 Mg Tab 10 MG PO Q6H PRN for PAIN, #10 TAB 0 Refills (This prescription has been renewed ) Ni Bravo MD Nov 12, 2017 08:33
[2017-11-12] MEDS ORDERED: OXYB5TAB8 PO (08:37)
[2017-11-12] MEDS ORDERED: CEFU1TAB18 PO (08:37)
[2017-11-12] MEDS ORDERED: OXYC-395 PO (08:37)
[2017-11-12] MEDS: DOCUSATE SODIUM 50 MG/SENNA 8.6 MG TAB PO SCH ×2 (09:19→20:02)
[2017-11-12] MEDS: FAMOTIDINE 20 MG TAB PO SCH ×2 (09:19→20:26)
[2017-11-12] MEDS: SODIUM CHLORIDE 0.9% FLUSH 10 ML FLUSH IV FLUSH SCH ×2 (09:20→20:27)
[2017-11-12] MEDS: CHLORHEXIDINE 0.12% (ORAL KIT) 15 ML CUP MT SCH ×2 (09:20→20:00)
[2017-11-12] MEDS: POTASSIUM CHLORIDE 25 MEQ EFFERVESCENT TAB PO PRN (09:21)
[2017-11-12] MEDS ORDERED: INFLUENZA VIRUS VACCINE (QUADRIVALENT) 0.5 ML SYR IM ONE (10:00)
[2017-11-12] MEDS ORDERED: PHENYLEPH/NS 1000 MCG/10 ML SYR IV ONE (12:00)
[2017-11-12] MEDS ORDERED: PROPOFOL 200 MG/20 ML AMP IV ONE (12:00)
[2017-11-12] MEDS: ACETAMINOPHEN 325 MG TAB PO PRN (12:08)
[2017-11-12 12:16] LABS: RENIN 140 ng/mL/h
--- NOTE | 2017-11-12 17:07 | HHI.NPPN ---
Subjective Additional Remarks Patient is alert, no chest pain, no SOB, feeling better. Objective Data Data Vital Signs Date Time Temp Pulse Resp B/P (MAP) Pulse Ox O2 Delivery O2 Flow Rate FiO2 11/12/17 12:00 99.4 82 162/83 (109) 96 11/12/17 09:02 98 Nasal Cannula 3.00 11/12/17 06:00 77 11/12/17 04:00 99.4 78 18 166/79 (108) 94 11/12/17 04:00 78 11/12/17 02:00 81 11/12/17 00:00 99.1 81 18 139/65 (89) 93 11/12/17 00:00 81 11/11/17 23:06 94 Nasal Cannula 11/11/17 22:00 84 11/11/17 20:00 81 11/11/17 20:00 98.8 81 20 155/76 (102) 93 11/11/17 18:00 89 -: 11/12/17 0519 11/12/17 0519 Physical Exam General Appearance: No Acute Distress, Comfortable Eyes Eye Exam: Pupils Equal Throat Throat Exam: Oral Mucosa [place] & Moist Pulmonary Resp Exam: Clear Bilaterally, Breath Sounds Equal, No Distress, Decreased Bases Cardiology CV Exam: Regular, Normal Sinus Rhythm Gastrointestinal/Abdomen GI Exam: Soft, Non-Tender, Bowel Sounds Present Extremeties Extremities Exam: No Edema Neurologic Neuro Exam: Alert, Awake, Oriented Psychiatric Psych Exam: Appropriate Responses Assessment/Plan Problem List: (1) Hyperkalemia ICD Codes: E87.5 - Hyperkalemia Status: Acute Plan: Possible distal renal tubular acidosis Idiopathic hyperkalemia noted on admission. Potassium WNL now. Hypercalcemia noted at 11.5 on admission Potassium noted in urine. Aldosterone/ renin level pending Per notes the family denies any medications that may contribute to hyperkalemia , specifically no [place]-I/ARB/potassium sparing diuretics/abx. Patient seen and examined, agree with above. Not taking NSAID, K in the urine was high, unlikely to have Renal tubular acidosis, also Hco3 is normal. Renin/Michael. pending. Need to restrict K in the diet, explain to the patient. Urine K was high, so he was able to excrete K in the urine. Calcium was high on admission, SPEP done and negative. Has very high Renin, Michael. was normal. Add Losartan, watch K and Creatinine level. If Creatinine increase, will need MRA. (2) Cardiopulmonary arrest ICD Codes: I46.9 - Cardiac arrest, cause unspecified Status: Acute (3) Lung consolidation ICD Codes: J18.1 - Lobar pneumonia, unspecified organism Status: Acute Corinne Ness MD Nov 12, 2017 17:07
[2017-11-12] MEDS: LOSARTAN 50 MG TAB PO SCH (18:13)
[2017-11-12] MEDS ORDERED: cloNIDine HCL 0.1 MG TAB PO ONE (22:45)
[2017-11-13] VITALS (9 sets, daily range): BP systolic 133–158; BP diastolic 65–84; PULSE 69–96; RESP 16–18; TEMP 98.4–98.9; O2SAT 95–100
[2017-11-13] MEDS: PIPERACIL-TAZO 3.375 GM PREMIX 50 ML IV SCH ×2 (02:40→07:50)
[2017-11-13] MEDS: CHLORHEXIDINE GLUCONATE 2 % 1 PACK (2 CLOTHS) TOP SCH (03:33)
[2017-11-13] MEDS: AZITHROMYCIN INJ 500 MG in SODIUM CHLOR 0.9% 250 ML INJ 250 ML IV SCH (03:33)
[2017-11-13] MEDS: INSULIN ASPART SUPPLEMENTAL SCALE SQ SCH ×3 (03:35→12:00)
[2017-11-13 04:50] LABS: HEMATOCRIT 32.8 % (39.0-51.0); HEMOGLOBIN 10.9 GM/DL (13.0-17.0); MEAN CELL VOLUME 82.2 FL (80.0-100.0); MEAN CORPUSCULAR HEMOGLOBIN 27.4 PG (27.0-34.0); MEAN CORPUSCULAR HGB CONC 33.3 % (32.0-36.0); PLATELET COUNT 271 TH/MM3 (150-450); RED BLOOD COUNT 3.99 MIL/MM3 (4.50-5.90); RED CELL DISTRIBUTION WIDTH 14.1 % (11.6-17.2); WHITE BLOOD COUNT 10.9 TH/MM3 (4.0-11.0)
[2017-11-13 05:14] LABS: BICARBONATE 23.9 MEQ/L (21.0-32.0); CALCIUM 9.4 MG/DL (8.5-10.1); CREATININE 0.71 MG/DL (0.60-1.30)
[2017-11-13] MEDS: POTASSIUM CHLORIDE 25 MEQ EFFERVESCENT TAB PO PRN (05:59)
[2017-11-13] MEDS ORDERED: COZA50TA PO (07:35)
[2017-11-13] MEDS: DOCUSATE SODIUM 50 MG/SENNA 8.6 MG TAB PO SCH (07:49)
[2017-11-13] MEDS: LOSARTAN 50 MG TAB PO SCH ×2 (07:50→13:43)
[2017-11-13] MEDS: SODIUM CHLORIDE 0.9% FLUSH 10 ML FLUSH IV FLUSH SCH (07:50)
[2017-11-13] MEDS: FAMOTIDINE 20 MG TAB PO SCH (07:50)
[2017-11-13] MEDS: CHLORHEXIDINE 0.12% (ORAL KIT) 15 ML CUP MT SCH (07:51)
--- NOTE | 2017-11-13 08:41 | PD.CARD.PN ---
Subjective Subjective Remarks Feels good. Wants to go home. Objective Medications Current Medications Medications (Trade) Dose Ordered Sig/Olivia Route Start Time Stop Time Status Last Admin (D50w (Vial) Inj) 50 ml UNSCH PRN IV PUSH 11/08/17 03:00 (Glucagon Inj) 1 mg UNSCH PRN OTHER 11/08/17 03:00 (NovoLOG SUPPLEMENTAL SCALE) 1 Q4HR SQ 11/08/17 04:00 Future hold 11/12/17 20:28 Piperacillin Sod/ Tazobactam Sod 50 ml @ 100 mls/hr Q6H IV 11/08/17 03:00 11/13/17 07:50 Azithromycin 500 mg/Sodium Chloride 250 ml @ 250 mls/hr Q24H IV 11/08/17 04:00 11/13/17 03:33 (Peridex 0.12% Liq) 15 ml BID@08,20 MT 11/08/17 08:00 11/13/17 07:51 (NS Flush) 2 ml UNSCH PRN IV FLUSH 11/08/17 03:30 (NS Flush) 2 ml BID IV FLUSH 11/08/17 09:00 11/13/17 07:50 (Tylenol) 650 mg Q6H PRN PO 11/08/17 03:30 11/12/17 12:08 (Pepcid) 20 mg Q12HR PO 11/08/17 09:00 11/13/17 07:50 (Zofran Inj) 4 mg Q6H PRN IV PUSH 11/08/17 03:30 (Albuterol Neb) 2.5 mg Q2HR NEB PRN INH 11/08/17 03:30 11/08/17 19:53 (Heparin Inj) 5,000 units Q12HR SQ 11/08/17 09:00 Future Hold Miscellaneous Information 1 Q361D XX 11/08/17 03:30 11/08/17 03:30 (Chlorhexidine 2% Cloth) Taper DAILY@04 TOP 11/08/17 04:00 11/04/18 03:59 11/13/17 03:33 (Chlorhexidine 2% Cloth) 3 pack UNSCH PRN TOP 11/08/17 03:30 (Chikis-Colace) 1 tab BID PO 11/08/17 09:00 11/12/17 09:19 (Milk Of Magnesia Liq) 30 ml Q12H PRN PO 11/08/17 03:30 (Senokot) 17.2 mg Q12H PRN PO 11/08/17 03:30 (Dulcolax Supp) 10 mg DAILY PRN RECTAL 11/08/17 03:30 (Lactulose Liq) 30 ml DAILY PRN PO 11/08/17 03:30 (Roxicodone) 5 mg Q6H PRN PO 11/08/17 21:30 11/13/17 02:40 (Ditropan) 5 mg Q8HR PRN PO 11/08/17 16:45 11/08/17 17:22 Potassium Chloride 100 ml @ 50 mls/hr Q2H PRN IV 11/09/17 09:00 Potassium Chloride 100 ml @ 50 mls/hr Q2H PRN IV 11/09/17 09:00 11/11/17 05:35 (K-Lyte Cl Eff) 50 meq UNSCH PRN PO 11/09/17 09:00 11/13/17 05:59 Potassium Chloride 100 ml @ 25 mls/hr UNSCH PRN IV 11/09/17 09:00 Potassium Chloride 100 ml @ 50 mls/hr Q2H PRN IV 11/09/17 09:00 11/12/17 06:49 Magnesium Sulfate 4 gm/Sodium Chloride 100 ml @ 50 mls/hr UNSCH PRN IV 11/09/17 09:00 (Mag-Ox) 800 mg UNSCH PRN PO 11/09/17 09:00 Magnesium Sulfate 2 gm/Sodium Chloride 100 ml @ 50 mls/hr UNSCH PRN IV 11/09/17 09:00 (K-Phos) 2,000 mg Q4H PRN PO 11/09/17 09:00 Sodium Phosphate 30 mmol/Sodium Chloride 250 ml @ 42 mls/hr UNSCH PRN IV 11/09/17 09:00 (K-Phos) 2,000 mg UNSCH PRN PO/TUBE 11/09/17 09:00 Potassium Phosphate 30 mmol/ Sodium Chloride 260 ml @ 42 mls/hr UNSCH PRN IV 11/09/17 09:00 (Cozaar) 50 mg DAILY PO 11/12/17 17:15 11/13/17 07:50 Vital Signs / I&O Vital Signs Date Time Temp Pulse Resp B/P (MAP) Pulse Ox O2 Delivery O2 Flow Rate FiO2 11/13/17 06:00 81 11/13/17 04:00 98.9 90 147/78 (101) 95 11/13/17 04:00 90 11/13/17 02:00 75 11/13/17 00:00 98.7 82 133/65 (87) 96 11/13/17 00:00 82 11/12/17 22:00 83 11/12/17 20:00 98.9 88 180/86 (117) 96 11/12/17 20:00 88 11/12/17 18:00 85 11/12/17 16:00 98.8 80 173/88 (116) 96 11/12/17 16:00 80 11/12/17 14:00 81 11/12/17 12:00 99.4 82 162/83 (109) 96 11/12/17 12:00 82 11/12/17 10:00 78 11/12/17 09:02 98 Nasal Cannula 3.00 I/O 11/12/17 11/12/17 11/12/17 11/13/17 11/13/17 11/13/17 07:00 15:00 23:00 07:00 15:00 23:00 Intake Total 845 ml 475 ml 590 ml Output Total 750 ml 600 ml 600 ml Balance 95 ml -125 ml -10 ml Intake Oral 480 ml 475 ml 240 ml IV Total 365 ml 350 ml Output Urine Total 750 ml 600 ml 600 ml # Bowel Movements 3 2 Physical Exam GENERAL: Well-nourished, well-developed patient. SKIN: Warm and dry. LCW incision well approx without erythema or drainage. HEAD: Normocephalic. EYES: No scleral icterus. No injection or drainage. NECK: Supple, trachea midline. No JVD or lymphadenopathy. CARDIOVASCULAR: Regular rate and rhythm without murmurs, gallops, or rubs. RESPIRATORY: Breath sounds equal bilaterally. No accessory muscle use. GASTROINTESTINAL: Abdomen soft, non-tender, nondistended. EXTREMITIES: No cyanosis, or edema. NEUROLOGICAL: Awake, alert, and oriented x 3. Non-focal. Laboratory Laboratory Tests Test 11/13/17 03:37 White Blood Count 10.9 TH/MM3 Red Blood Count 3.99 MIL/MM3 Hemoglobin 10.9 GM/DL Hematocrit 32.8 % Mean Corpuscular Volume 82.2 FL Mean Corpuscular Hemoglobin 27.4 PG Mean Corpuscular Hemoglobin Concent 33.3 % Red Cell Distribution Width 14.1 % Platelet Count 271 TH/MM3 Mean Platelet Volume 9.0 FL Blood Urea Nitrogen 6 MG/DL Creatinine 0.71 MG/DL Random Glucose 140 MG/DL Calcium Level 9.4 MG/DL Sodium Level 138 MEQ/L Potassium Level 3.4 MEQ/L Chloride Level 104 MEQ/L Carbon Dioxide Level 23.9 MEQ/L Anion Gap 10 MEQ/L Estimat Glomerular Filtration Rate 109 ML/MIN Imaging Last Impressions Chest X-Ray 11/08/1748 Signed Impressions: Service Date/Time: Wednesday, November 08, 2017 01:37 - CONCLUSION: 1. ET tube in good position. 2. Hazy density at the lungs bilaterally likely related to areas of consolidation or atelectasis. Dewayne Yañez MD Abdomen/Pelvis CT 11/08/1748 Signed Impressions: Service Date/Time: Wednesday, November 08, 2017 01:25 - CONCLUSION: 1. No abdominal aortic aneurysm. 2. Areas of consolidation or atelectasis at the lung bases. 3. Hepatic steatosis. Dewayne Yañez MD Renal Ultrasound 11/08/17 0000 Signed Impressions: Service Date/Time: Wednesday, November 08, 2017 09:14 - CONCLUSION: Benign right renal cyst. Abnormal circumferential wall thickening within the bladder, greater than expected given the degree of decompression. Findings may reflect inflammation secondary to cystitis versus neoplasm.. Kaylie Hayes MD Head CT 11/08/17 0000 Signed Impressions: Service Date/Time: Wednesday, November 08, 2017 01:16 - CONCLUSION: No acute disease. Dewayne Yañez MD CT Angiography 11/08/17 0000 Signed Impressions: Service Date/Time: Wednesday, November 08, 2017 01:21 - CONCLUSION: 1. No pulmonary embolus. 2. Bilateral areas of consolidation in the posterior upper and lower lungs being worse on the right. Dewayne Yañez MD Assessment and Plan Problem List: (1) Cardiopulmonary arrest ICD Codes: I46.9 - Cardiac arrest, cause unspecified Status: Acute Plan: S/P ICD implantation. Stable for DC home from EP standpoint if CXR negative per my d/w Dr. Stewart. Cassia Devine Nov 13, 2017 08:40
--- NOTE | 2017-11-13 09:53 | RADRPT ---
EXAM DATE/TIME: 11/13/2017 09:08 [facility] COMPARISON: CHEST SINGLE AP, November 08, 2017, 5:09. INDICATIONS : Device Placement. MEDICAL HISTORY : Cardiovascular disease. Diabetes mellitus type II. SURGICAL HISTORY : Fusion, cervical. ENCOUNTER: Subsequent ACUITY: 1 day PAIN SCORE: 0/10 LOCATION: Bilateral chest FINDINGS: Interval extubation, removal of NGT and right IJ catheter. Interval placement of a single lead AICD d evice. There is no significant pneumothorax. Leads project over the right atrium and ventricle. Impro taylor aeration at the lung bases. Heart and mediastinal contours are stable. Remainder of the exam is u nchanged. CONCLUSION: 1. Single AICD device with lead projecting over the right atrium/ventricle. No pneumothorax. 2. Improved aeration of the lower lung zones. Yoni Serna MD on November 13, 2017 at 9:48 Board Certified Radiologist. This report was verified electronically.
--- NOTE | 2017-11-13 12:53 | HHI.NPPN ---
Subjective Additional Remarks Patient is alert, no chest pain, sitting on the chair. Objective Data Data Vital Signs Date Time Temp Pulse Resp B/P (MAP) Pulse Ox O2 Delivery O2 Flow Rate FiO2 11/13/17 08:00 98.7 16 158/79 (105) 100 11/13/17 08:00 69 11/13/17 06:00 81 11/13/17 04:00 98.9 90 147/78 (101) 95 11/13/17 04:00 90 11/13/17 02:00 75 11/13/17 00:00 98.7 82 133/65 (87) 96 11/13/17 00:00 82 11/12/17 22:00 83 11/12/17 20:00 98.9 88 180/86 (117) 96 11/12/17 20:00 88 11/12/17 18:00 85 11/12/17 16:00 98.8 80 173/88 (116) 96 11/12/17 16:00 80 11/12/17 14:00 81 -: 11/13/17 0337 11/13/17 0337 Physical Exam General Appearance: No Acute Distress, Comfortable Eyes Eye Exam: Pupils Equal Throat Throat Exam: Oral Mucosa [place] & Moist Pulmonary Resp Exam: Clear Bilaterally, Breath Sounds Equal, No Distress, Decreased Bases Cardiology CV Exam: Regular, Normal Sinus Rhythm Gastrointestinal/Abdomen GI Exam: Soft, Non-Tender, Bowel Sounds Present Extremeties Extremities Exam: No Edema Neurologic Neuro Exam: Alert, Awake, Oriented Psychiatric Psych Exam: Appropriate Responses Assessment/Plan Problem List: (1) Hyperkalemia ICD Codes: E87.5 - Hyperkalemia Status: Acute Plan: Possible distal renal tubular acidosis Idiopathic hyperkalemia noted on admission. Potassium WNL now. Hypercalcemia noted at 11.5 on admission Potassium noted in urine. Aldosterone/ renin level pending Per notes the family denies any medications that may contribute to hyperkalemia , specifically no [place]-I/ARB/potassium sparing diuretics/abx. Patient seen and examined, agree with above. Not taking NSAID, K in the urine was high, unlikely to have Renal tubular acidosis, also Hco3 is normal. Renin/Michael. pending. Need to restrict K in the diet, explain to the patient. Urine K was high, so he was able to excrete K in the urine. Calcium was high on admission, SPEP done and negative. Has very high Renin, Michael. was normal. Started on Losartan, K and Creatinine stable today. If D/C, will need to follow with PCP with repeat BMP. (2) Cardiopulmonary arrest ICD Codes: I46.9 - Cardiac arrest, cause unspecified Status: Acute (3) Lung consolidation ICD Codes: J18.1 - Lobar pneumonia, unspecified organism Status: Acute Corinne Ness MD Nov 13, 2017 12:53
== END 2017-11-13 16:25 | disposition home or self-care (01) | DRG 245 ==
LOC: NEPE 00:01 → NEDH 01:12 → HIMW 02:10 → HCIS 11-10 10:35 → HIMW 11-10 10:35 → HIMN 11-10 11:31 → HIMW 11-10 11:32
PROVIDERS: ADMIT Hospitalist; ATTEND Hospitalist
PROC: 5A1935Z Respiratory Ventilation, Less than 24 Consecutive Hours (ICD-10-PCS; principal; 2017-11-08)
PROC: 0BH17EZ Insertion of Endotracheal Airway into Trachea, Via Natural or Artificial Opening (ICD-10-PCS; 2017-11-08)
PROC: 5A12012 Performance of Cardiac Output, Single, Manual (ICD-10-PCS; 2017-11-08)
PROC: 05HM33Z Insertion of Infusion Device into Right Internal Jugular Vein, Percutaneous Approach (ICD-10-PCS; 2017-11-08)
PROC: 4A023N7 Measurement of Cardiac Sampling and Pressure, Left Heart, Percutaneous Approach (ICD-10-PCS; 2017-11-10)
PROC: B2111ZZ Fluoroscopy of Multiple Coronary Arteries using Low Osmolar Contrast (ICD-10-PCS; 2017-11-10)
PROC: 0JH608Z Insertion of Defibrillator Generator into Chest Subcutaneous Tissue and Fascia, Open Approach (ICD-10-PCS; 2017-11-12)
PROC: 02HK3MZ Insertion of Cardiac Lead into Right Ventricle, Percutaneous Approach (ICD-10-PCS; 2017-11-12)
PROC: 4B02XTZ Measurement of Cardiac Defibrillator, External Approach (ICD-10-PCS; 2017-11-13)
DX: I47.2 Ventricular tachycardia (principal); I21.4 Non-ST elevation (NSTEMI) myocardial infarction; J96.01 Acute respiratory failure with hypoxia; J96.02 Acute respiratory failure with hypercapnia; E87.5 Hyperkalemia; E87.2 Acidosis; J18.1 Lobar pneumonia, unspecified organism; I42.9 Cardiomyopathy, unspecified; I50.9 Heart failure, unspecified; J44.0 Chronic obstructive pulmonary disease with (acute) lower respiratory infection; E83.42 Hypomagnesemia; E83.52 Hypercalcemia; E11.9 Type 2 diabetes mellitus without complications; Z79.4 Long term (current) use of insulin; Z79.891 Long term (current) use of opiate analgesic; M19.90 Unspecified osteoarthritis, unspecified site; G89.29 Other chronic pain; E66.9 Obesity, unspecified; K21.9 Gastro-esophageal reflux disease without esophagitis; Z87.891 Personal history of nicotine dependence; Z98.1 Arthrodesis status; I25.10 Atherosclerotic heart disease of native coronary artery without angina pectoris; N32.9 Bladder disorder, unspecified
CPT/HCPCS: 31500; 33249; 36556; 36600; 70450; 71045; 71275; 74177; 76775; 76937; 80048; 80053; 80061; 80307; 81001; 82024; 82088; 82140; 82436; 82533; 82550; 82570; 82805; 82948; 83605; 83735; 84100; 84132; 84133; 84165; 84244; 84300; 84439; 84443; 84481; 84484; 84540; 85007; 85025; 85027; 85610; 85730; 87040; 87070; 87077; 87086; 87205; 87449; 87641; 87804; 90686; 93005; 93306; 93458; 94002; 94003; 94150; 94640; 94664; 94667; 94668; 99152; C1722; C1777; C1893; G0481; J0131; J0171; J0282; J0330; J0456; J0690; J1265; J1644; J1815; J1940; J2250; J2370; J2543; J3010; J3370; J3475; J3480; J7030; J7040; J7050; J7613; Q2038; Q9967